=== PATIENT | female | born 1990 | race African-American/Black ===

== ENCOUNTER 2019-02-27 20:48 | Emergency (ER) | payer OTHER ==
--- NOTE | 2019-02-27 21:14 | PDOC ---
Rapid Medical Evaluation Time Seen by Provider: 02/27/19 21:07 Medical Evaluation: 02/27/19 21:08 CC: unable to tolerate PO's xtoday. D/C'd from [facility] prior to arrival. LMP- PE: Diffuse abd tenderness. Orders: labs Patient to proceed to ER for evaluation. Discharge Disposition - Diagnosis Vomiting during - Referrals - Patient Instructions - Post Discharge Activity
[2019-02-27] MEDS ORDERED: SODIUM CHLORIDE 1,000 ML IV STA (21:15)
[2019-02-27] MEDS ORDERED: ONDANSETRON 4 MG/2 ML VIAL IVPUSH ONE (21:15)
[2019-02-27 21:24] VITALS: BP 124/78; PULSE 78; TEMP 98; BMI 28.8
--- NOTE | 2019-02-27 21:41 | PDOC ---
History of Present Illness - General Chief Complaint: Nausea/Vomiting Stated Complaint: Nausea/Vomiting Time Seen by Provider: 02/27/19 21:07 Past History - Past Medical History Allergies/Adverse Reactions: Allergies Allergy/AdvReac Type Severity Reaction Status Date / Time No Known Allergies Allergy Verified 02/27/19 21:16 - Psycho Social/Smoking Cessation Hx Smoking History: Never smoked *Physical Exam - Vital Signs Last Vital Signs Temp Pulse Resp BP Pulse Ox 98 F 78 18 124/78 99 02/27/19 21:16 02/27/19 21:16 02/27/19 21:16 02/27/19 21:16 02/27/19 21:16 Discharge - Discharge Information Clinical Impression/Diagnosis: Vomiting during - Follow up/Referral Referrals: ON STAFF,NOT [Primary Care Provider] - - Patient Discharge Instructions - Post Discharge Activity
[2019-02-27] MEDS ORDERED: ONDANSETRON 4 MG/2 ML VIAL ONE (22:06)
[2019-02-27 22:13] LABS: BASO % 0.3 % (0-2.0); EOS % 0.1 % (0-4.5); HEMATOCRIT 35.6 % (32.4-45.2); HEMOGLOBIN 11.8 GM/dL (10.7-15.3); LYMPH % 17.3 % (8-40); MCH 34.1 pg (25.7-33.7); MCHC 33.3 g/dl (32.0-36.0); MEAN CELL VOLUME 102.7 fl (80-96); MEAN PLT VOLUME 7.4 fl (7.5-11.1); MONO % 4.2 % (3.8-10.2); NEUT % 78.1 % (42.8-82.8); PLATELET COUNT 237 K/MM3 (134-434); RBC 3.46 M/mm3 (3.60-5.2); RDW 14.9 % (11.6-15.6); WHITE BLOOD COUNT 12.2 K/mm3 (4.0-10.0)
[2019-02-27 22:42] LABS: ALBUMIN 3.9 g/dl (3.4-5.0); BILIRUBIN,TOTAL 0.5 mg/dL (0.2-1); BLOOD UREA NITROGEN 9.7 mg/dL (7-18); CALCIUM 9.1 mg/dL (8.5-10.1); CREATININE 0.8 mg/dL (0.55-1.3); POTASSIUM 3.8 mmol/L (3.5-5.1); TOT PROT 7.2 g/dl (6.4-8.2)
--- NOTE | 2019-02-27 22:42 | PDOC ---
Documentation entered by Austin Michaud SCRIBE, acting as scribe for Carolina Horton MD. Carolina Horton MD: This documentation has been prepared by the Jaswant hawkins Xhesika, SCRIBE, under my direction and personally reviewed by me in its entirety. I confirm that the documentation accurately reflects all work, treatment, procedures, and medical decision making performed by me. History of Present Illness - General Chief Complaint: Nausea/Vomiting Stated Complaint: Nausea/Vomiting Time Seen by Provider: 02/27/19 21:07 History Source: Patient Exam Limitations: No Limitations - History of Present Illness Initial Comments: 02/27/19 21:45 The patient is a 28 year old female, , currently , with a significant PMH of IDDM who presents to the emergency department for intractable nausea and vomiting x 1 day. Patient notes she was seen and discharged from [facility] for similar symptoms prior to arrival, received IV fluid and Zofran but did not receive US. Patient denies any vaginal bleeding or discharge. patient s LMP was 12/31/18. The patient denies chest pain, shortness of breath, headache and dizziness. Denies fever, chills, cough, diarrhea and constipation. Denies dysuria, frequency, urgency and hematuria. Allergies: NKDA Past History - Past Medical History Allergies/Adverse Reactions: Allergies Allergy/AdvReac Type Severity Reaction Status Date / Time No Known Allergies Allergy Verified 02/27/19 21:16 - Psycho Social/Smoking Cessation Hx Smoking History: Never smoked Review of Systems - Review of Systems Able to Perform ROS?: Yes Comments:: 02/27/19 21:46 GENERAL/CONSTITUTIONAL: No fever or chills. No weakness. HEAD, EYES, EARS, NOSE AND THROAT: No change in vision. No ear pain or discharge. No sore throat. CARDIOVASCULAR: No chest pain or shortness of breath. RESPIRATORY: No cough, wheezing, or hemoptysis. GASTROINTESTINAL: + nausea, + vomiting. No diarrhea or constipation. GENITOURINARY: No dysuria, frequency, or change in urination. MUSCULOSKELETAL: No joint or muscle swelling or pain. No neck or back pain. SKIN: No rash NEUROLOGIC: No headache, vertigo, loss of consciousness, or change in strength/ sensation. ENDOCRINE: No increased thirst. No abnormal weight change. HEMATOLOGIC/LYMPHATIC: No anemia, easy bleeding, or history of blood clots. ALLERGIC/IMMUNOLOGIC: No hives or skin allergy. *Physical Exam - Vital Signs Last Vital Signs Temp Pulse Resp BP Pulse Ox 98 F 78 18 124/78 99 02/27/19 21:16 02/27/19 21:16 02/27/19 21:16 02/27/19 21:16 02/27/19 21:16 - Physical Exam Comments: 02/27/19 21:46 GENERAL: Awake, alert, and fully oriented, in no acute distress HEAD: No signs of trauma EYES: PERRLA, EOMI, sclera anicteric, conjunctiva clear ENT: Auricles normal inspection, hearing grossly normal, nares patent, oropharynx clear without exudates. Moist mucosa NECK: Normal ROM, supple, no lymphadenopathy, JVD, or masses LUNGS: Breath sounds equal, clear to auscultation bilaterally. No wheezes, and no crackles HEART: Regular rate and rhythm, normal S1 and S2, no murmurs, rubs or gallops ABDOMEN: Soft, nontender, normoactive bowel sounds. No guarding, no rebound. No masses EXTREMITIES: Normal range of motion, no edema. No clubbing or cyanosis. No cords, erythema, or tenderness NEUROLOGICAL: Cranial nerves II through XII grossly intact. Normal speech, normal gait SKIN: Warm, Dry, normal turgor, no rashes or lesions noted. ED Treatment Course - LABORATORY CBC & Chemistry Diagram: 02/27/19 22:00 02/27/19 22:00 - ADDITIONAL ORDERS Additional order review: Laboratory Results 02/27/19 02/27/19 22:18 22:00 Lipase 338 Acetone, Qual Negative L 02/27/19 22:00 RBC 3.46 L MCV 102.7 H MCHC 33.3 RDW 14.9 MPV 7.4 L Neutrophils % 78.1 Lymphocytes % 17.3 Monocytes % 4.2 Eosinophils % 0.1 Basophils % 0.3 - Medications Given in the ED: ED Medications Discontinued Medications Generic Name Dose Route Start Last Admin Trade Name Freq PRN Reason Stop Dose Admin Sodium Chloride 1,000 mls @ 1,000 mls/hr 02/27/19 21:15 02/27/19 22:12 Normal Saline - IV 02/27/19 22:14 1,000 mls/hr ASDIR STA Administration Ondansetron HCl 4 mg 02/27/19 21:15 02/27/19 22:12 Zofran Injection IVPUSH 02/27/19 21:16 4 mg ONCE ONE Administration Medical Decision Making - Medical Decision Making 02/27/19 22:41 this 28 yo female states she has an early and is IDDM and has had 1 day of nausea and vomiting 02/28/19 00:20 BHCG is 68,000 and Transvaginal ultrasound shows a single live intrauterine gestational sac with a pole corresponding to 7 weeks and 4 days gestation. heart rate in the 146 bpm Yolk sac visualized. There is no subchorionic hemorrhage. There is no free fluid or suspicious adnexal masses. There is a simple cyst in the right ovary. Left ovary was not visualized. Impression live single intrauterine 7 weeks 4 days gestation. No sonographic complications. Serum acetone was negative. The glucose is only 192. No evidence of diabetic ketoacidosis. Patient to be discharged home to follow up with her SALESFORCE ADMINISTRATOR 02/28/19 00:37 Discharge - Discharge Information Problems reviewed: Yes Clinical Impression/Diagnosis: Vomiting during Condition: Stable Disposition: HOME - Follow up/Referral Referrals: ON STAFF,NOT [Primary Care Provider] - - Patient Discharge Instructions Patient Printed Discharge Instructions: DI for Hyperemesis Gravidarum, DI for Diabetes Type 1 -- Adult Additional Instructions: you are 7 weeks 4 days and need to follow up with your SALESFORCE ADMINISTRATOR Continue to see your diabetes doctor during your - Post Discharge Activity
[2019-02-28] MEDS ORDERED: ACETAMINOPHEN 325 MG TABLET (FP) PO ONE (00:37)
[2019-02-28] MEDS ORDERED: ACETAMINOPHEN 325 MG TABLET (FP) ONE (00:40)
== END 2019-02-28 00:46 | disposition home or self-care (01) ==
LOC: JER 20:48
PROC: 3E033GC Introduction of Other Therapeutic Substance into Peripheral Vein, Percutaneous Approach (ICD-10-PCS; principal; 2019-02-27)
PROC: 3E0337Z Introduction of Electrolytic and Water Balance Substance into Peripheral Vein, Percutaneous Approach (ICD-10-PCS; 2019-02-27)
DX: O26.891 Other specified pregnancy related conditions, first trimester (principal); Z3A.01 Less than 8 weeks gestation of pregnancy; R11.10 Vomiting, unspecified
CPT/HCPCS: 36415; 76817-TC; 80053; 82009; 83690; 84702; 85025; 96361; 96374; 99283-25; J7030

== ENCOUNTER 2019-04-10 20:23 | Inpatient (IN) | payer OTHER ==
[2019-04-10 20:34] VITALS: BMI 31.4
--- NOTE | 2019-04-10 20:35 | PDOC ---
Rapid Medical Evaluation Time Seen by Provider: 04/10/19 20:29 Medical Evaluation: Allergies Allergy/AdvReac Type Severity Reaction Status Date / Time No Known Allergies Allergy Verified 02/27/19 21:16 04/10/19 20:29 I have performed a brief in-person evaluation of this patient. The patient presents with a chief complaint of: 14 wks , type I diabetic , persistent vomiting since 330pm, approximately 10 episodes of vomiting. + chills, diarrhea. denies abd pain or vaginal bleeding. Pertinent physical exam findings: uncomfortable/weak appearing, dry cough I have ordered the following: labs, urine, flu The patient will proceed to the ED for further evaluation. Discharge Disposition - Diagnosis Vomiting during , Type 1 diabetes - Referrals - Patient Instructions - Post Discharge Activity
--- NOTE | 2019-04-10 22:17 | PDOC ---
History of Present Illness - General Chief Complaint: Nausea/Vomiting Stated Complaint: VOMITTING Time Seen by Provider: 04/10/19 20:29 - History of Present Illness Initial Comments: 04/11/19 03:51 The patient is a 28 y/o female at a self-reported 14 weeks gestation and PMHx significant for Type 1 DM who presents with acute onset of vomiting. Ten episodes of bilious emesis. No abdominal cramping or vaginal bleeding. States her blood sugar was 107 at lunchtime today. Most recent evaluation two weeks previous with a normal TVUS. Patient's next scheduled appointment in two weeks. The patient denies chest pain, shortness of breath, numbness/tingling, sore throat, cough. Past History - Past Medical History Allergies/Adverse Reactions: Allergies Allergy/AdvReac Type Severity Reaction Status Date / Time No Known Allergies Allergy Verified 04/10/19 20:31 Home Medications: Ambulatory Orders Aspirin 81 mg PO DAILY 04/10/19 Folic Acid 1 mg PO DAILY 04/10/19 Insulin (Levemir) [Levemir Vial] 15 units SCJ HS 04/10/19 Insulin (Levemir) [Levemir Vial] 20 unit SQ DAILY 04/10/19 Insulin Lispro [Humalog] 1 unit SQ PRN 04/10/19 Pnv No.121/Iron/Folic Acid [ Multivitamin Tablet] 1 tab PO DAILY COPD: No Diabetes: Yes - Psycho Social/Smoking Cessation Hx Smoking History: Never smoked Review of Systems - Review of Systems Constitutional: Yes: Chills, Fever HEENTM: No: Recent change in vision Respiratory: No: Cough, Shortness of Breath Cardiac (ROS): No: Chest Pain, Lightheadedness, Palpitations, Syncope ABD/GI: Yes: Diarrhea, Vomiting. No: Constipated, Nausea *Physical Exam - Vital Signs Last Vital Signs Temp Pulse Resp BP Pulse Ox 98.0 F 94 H 18 129/71 100 04/10/19 20:31 04/10/19 20:31 04/10/19 20:31 04/10/19 20:31 04/10/19 20:31 - Physical Exam General Appearance: Yes: Nourished, Appropriately Dressed HEENT: positive: Normal Voice, Hearing Grossly Normal, Excessive drooling Neck: positive: Supple Respiratory/Chest: positive: Lungs Clear, Normal Breath Sounds Cardiovascular: positive: S1, S2 Gastrointestinal/Abdominal: positive: Normal Bowel Sounds, Soft Musculoskeletal: negative: CVA Tenderness (R), CVA Tenderness (L) Extremity: positive: Normal Capillary Refill, Normal Inspection Integumentary: positive: Normal Color, Dry, Warm Neurologic: positive: Fully Oriented, Alert ED Treatment Course - LABORATORY CBC & Chemistry Diagram: 04/10/19 22:10 04/10/19 22:10 Medical Decision Making - Medical Decision Making 04/11/19 03:40 04/10/19 23:46 28 y/o female at a self-reported 14 weeks gestation with a PMH of Type 1 DM here today with acute onset of vomiting. VBG, Urine Ketones r/o DKA Beta Hydroxbutyrate @ 12, patient requires admission for evaluation of dehydration. Patient admitted to inpatient medicine service Discharge - Discharge Information Problems reviewed: Yes Clinical Impression/Diagnosis: Vomiting during , Type 1 diabetes Condition: Fair - Follow up/Referral - Patient Discharge Instructions - Post Discharge Activity
[2019-04-10] MEDS ORDERED: SODIUM CHLORIDE 0.9% 500 ML INFUS.BAG IV ONE (22:19)
[2019-04-10] MEDS ORDERED: METOCLOPRAMIDE HCL INJECTION 10 MG/2 ML VIAL IVPUSH ONE (22:22)
[2019-04-10] MEDS ORDERED: LACTATED RINGERS SOLUTION 1,000 ML/1,000 ML INFUS.BAG IV STA (22:23)
[2019-04-10] MEDS ORDERED: METOCLOPRAMIDE HCL INJECTION 10 MG/2 ML VIAL ONE (22:26)
[2019-04-10 22:35] LABS: BASO % 0.3 % (0-2.0); HEMATOCRIT 34.3 % (32.4-45.2); HEMOGLOBIN 11.7 GM/dL (10.7-15.3); LYMPH % 16.1 % (8-40); MCH 34.9 pg (25.7-33.7); MCHC 34.1 g/dl (32.0-36.0); MEAN CELL VOLUME 102.1 fl (80-96); MEAN PLT VOLUME 8.3 fl (7.5-11.1); MONO % 3.2 % (3.8-10.2); NEUT % 80.4 % (42.8-82.8); PLATELET COUNT 234 K/MM3 (134-434); RBC 3.35 M/mm3 (3.60-5.2); RDW 13.5 % (11.6-15.6); WHITE BLOOD COUNT 11.8 K/mm3 (4.0-10.0)
[2019-04-10 22:36] LABS: VENOUS PC02 32.9 mmHg (38-52); VENOUS PH 7.43 (7.31-7.41)
[2019-04-10 23:15] LABS: ALBUMIN 3.4 g/dl (3.4-5.0); BILIRUBIN,TOTAL 0.3 mg/dL (0.2-1); BLOOD UREA NITROGEN 11.6 mg/dL (7-18); CALCIUM 9.9 mg/dL (8.5-10.1); CREATININE 0.7 mg/dL (0.55-1.3); POTASSIUM 4.4 mmol/L (3.5-5.1); TOT PROT 7.1 g/dl (6.4-8.2)
--- NOTE | 2019-04-10 23:49 | PDOC ---
Attending Attestation - Resident Resident Name: Lashawn Jay - ED Attending Attestation I have performed the following: I have examined & evaluated the patient, The case was reviewed & discussed with the resident, I agree w/resident's findings & plan - HPI HPI: 04/10/19 23:46 agree with resident hpi - Physicial Exam PE: 04/10/19 23:47 agree with resident exam - Medical Decision Making 04/10/19 23:47 28-year-old gravid female with vomiting, history of type I diabetes Patient's beta hydroxybutyrate levels are markedly elevated pH and bicarbonate levels are within normal limits Plan for admission for IV hydration to medical service with OB consultation as needed
--- NOTE | 2019-04-11 00:08 | PN ---
Teaching Attending Note Name of Resident: Kira Alcantar ATTENDING PHYSICIAN STATEMENT I saw and evaluated the patient. I reviewed the resident's note and discussed the case with the resident. I agree with the resident's findings and plan as documented. SUBJECTIVE: Patient is a 28 year old woman with PMH of IDDM who is 14 weeks presenting with persistent vomiting and nausea for 1 day. Patient says she had her regular breakfast and lunch then later in the afternoon she had 10 episodes of NB but bilious vomiting with associated nausea and chills. Patient was prescribed vitamin B6 for similar symptoms on a recent ER visit but was unable to keep anything down. Denies abdominal pain, vaginal bleeding, recent illness, fever, chills, dysuria or frequency. Patient did mention one episode of loose stool but following BM were formed. Uncomplicated emergency C section for last . She has an appointment for high risk INTEGRATION DIRECTOR at [facility] later today (04/11/19). OBJECTIVE: Alert Vital Signs Period Temp Pulse Resp BP Sys/Poe Pulse Ox Last 24 Hr 98.0 F 94-106 17-20 120-129/68-71 99-100 HEENT: No Jaundice, eye redness or discharge, PERRLA, EOMI. Normocephalic, atraumatic. External ears are normal and hearing is grossly intact. No nasal discharge. Neck: Supple, nontender. No palpable adenopathy or thyromegaly. No JVD Chest: Good effort. Clear to auscultation and percussion. Heart: Regular. No S3, rub or murmur Abdomen: Not distended, soft, nontender and no HSM. No rebound or guarding. Normal bowel sounds. Ext: Peripheral pulses intact. No leg edema. Skin: Warm and dry. No petechiae, rash or ecchymosis. Neuro: Alert. Oriented x3. CN 2-12 grossly intact. Sensation grossly intact in all four extremities and DTR are symmetric. Psych: Appropriate mood and affect. Good insight. Current Medications Generic Name Dose Route Start Last Admin Trade Name Freq PRN Reason Stop Dose Admin Sodium Chloride 1,000 mls @ 150 mls/hr 04/11/19 02:00 04/11/19 02:01 Normal Saline - IV 04/12/19 08:39 150 mls/hr ASDIR KERWIN Administration Metoclopramide HCl 10 mg 04/11/19 02:00 04/11/19 02:17 Reglan Injection - IVPUSH 10 mg Q6H PRN Administration NAUSEA AND/OR VOMITING Home Medications Medication Instructions Recorded Aspirin 81 mg PO DAILY 04/10/19 Folic Acid 1 mg PO DAILY 04/10/19 Insulin (Levemir) [Levemir Vial] 15 units SCJ HS 04/10/19 Insulin (Levemir) [Levemir Vial] 20 unit SQ DAILY 04/10/19 Insulin Lispro [Humalog] 1 unit SQ PRN 04/10/19 Pnv No.121/Iron/Folic Acid 1 tab PO DAILY 04/10/19 [ Multivitamin Tablet] Abnormal Lab Results 04/10/19 04/10/19 04/10/19 22:10 22:10 22:10 WBC 11.8 H RBC 3.35 L MCV 102.1 H MCH 34.9 H Absolute Neuts (auto) 9.5 H Monocytes % 3.2 L VBG pH 7.43 H POC VBG pCO2 32.9 L POC VBG pO2 132 H VBG HCO3 21.4 L VBG O2 Sat (Elie) 98.9 H Sodium 135 L Random Glucose 173 H Beta-Hydroxybutyrate 12.9 H Urine Protein Urine Glucose (UA) Urine Ketones 04/11/19 01:47 WBC RBC MCV MCH Absolute Neuts (auto) Monocytes % VBG pH POC VBG pCO2 POC VBG pO2 VBG HCO3 VBG O2 Sat (Elie) Sodium Random Glucose Beta-Hydroxybutyrate Urine Protein 1+ H Urine Glucose (UA) 2+ H Urine Ketones 4+ H ASSESSMENT AND PLAN: 1. Hyperemesis gravidarum - Responding to IV fluids and Reglan. Will get abdominal sonogram to rule any GI organ pathology. EKG shows NSR with T wave inversion in III and prolonged QTc. Will monitor electrolytes and strive to discharge her early today - if stable - so she can keep her appointment at [facility]. 2. Uncontrolled DM with mild ketosis For now, we will hold the home diabetes drugs and implement sliding scale insulin regimen. Provide comprehensive diabetes care with patient teaching and counseling about the importance of adherence to prescribed diabetes regimen, euglycemia, eye care and foot care. 3. DVT prophylaxis - Heparin 5000u sq tid. 4. Advance directives - Full code
[2019-04-11] MEDS ORDERED: SODIUM CHLORIDE 1,000 ML IV SCH (02:00)
[2019-04-11] MEDS: METOCLOPRAMIDE HCL INJECTION 10 MG/2 ML VIAL IVPUSH PRN ×3 (02:17→12:00)
[2019-04-11] MEDS ORDERED: METOCLOPRAMIDE HCL INJECTION 10 MG/2 ML VIAL ONE (02:18)
--- NOTE | 2019-04-11 02:46 | HP ---
CHIEF COMPLAINT: persistent vomiting PCP: non [facility] HISTORY OF PRESENT ILLNESS: 28 y/o F currently 14 weeks with PMH of Type 1 diabetes complaining of vomiting and nausea for 1 day. According to the pt, she had her regular breakfast and lunch then later in the afternoon she had 10 episodes of NB but bilious vomiting with associated nausea and chills. Pt was prescribed vitamin B6 for similar symptoms and ED visit; however patient was unable to keep anything down.She denied any abdominal pain or bleeding, recent illness, fever or chills, or change in urination. Patient did mention one episode of loose stool but following BM were formed. Uncomplicated emergency C section for last according to Patient. Emergency due to "fast HR" however no post complication for mother or baby. LMP 01/15. Pt has an appointment for high risk customer services supervisor on 04/11/19. ER course was notable for: (1) CBC with leukocytosis, CMP with elevated B-hydroxybutyrate 12.9 (2) rapid flu negative. EKG with prolongued QTC 462 NSR with T wave inversion in III (3) NS and reglan Recent Travel: denies PAST MEDICAL HISTORY: as above PAST SURGICAL HISTORY: umbilical hernia repair Social History: Smoking:denies Alcohol: denies Drugs: denies Allergies No Known Allergies Allergy (Verified 04/10/19 20:31) HOME MEDICATIONS: Home Medications Medication Instructions Recorded Aspirin 81 mg PO DAILY 04/10/19 Folic Acid 1 mg PO DAILY 04/10/19 Insulin (Levemir) [Levemir Vial] 15 units SCJ HS 04/10/19 Insulin (Levemir) [Levemir Vial] 20 unit SQ DAILY 04/10/19 Insulin Lispro [Humalog] 1 unit SQ PRN 04/10/19 Pnv No.121/Iron/Folic Acid 1 tab PO DAILY 04/10/19 [ Multivitamin Tablet] REVIEW OF SYSTEMS CONSTITUTIONAL: chills Absent: fever, diaphoresis, generalized weakness, malaise, loss of appetite, weight change HEENT: Absent: rhinorrhea, nasal congestion, throat pain, throat swelling, difficulty swallowing, mouth swelling, ear pain, eye pain, visual changes CARDIOVASCULAR: Absent: chest pain, syncope, palpitations, irregular heart rate, lightheadedness , peripheral edema RESPIRATORY: Absent: cough, shortness of breath, dyspnea with exertion, orthopnea, wheezing, stridor, hemoptysis GASTROINTESTINAL:nausea, vomiting Absent: abdominal pain, abdominal distension, diarrhea, constipation, melena, hematochezia GENITOURINARY: Absent: dysuria, frequency, urgency, hesitancy, hematuria, flank pain, genital pain MUSCULOSKELETAL: Absent: myalgia, arthralgia, joint swelling, back pain, neck pain SKIN: Absent: rash, itching, pallor HEMATOLOGIC/IMMUNOLOGIC: Absent: easy bleeding, easy bruising, lymphadenopathy, frequent infections ENDOCRINE: Absent: unexplained weight gain, unexplained weight loss, heat intolerance, cold intolerance NEUROLOGIC: Absent: headache, focal weakness or paresthesias, dizziness, unsteady gait, seizure, mental status changes, bladder or bowel incontinence PSYCHIATRIC: Absent: anxiety, depression, suicidal or homicidal ideation, hallucinations. PHYSICAL EXAMINATION Vital Signs - 24 hr 04/10/19 04/10/19 04/11/19 20:31 23:29 02:03 Temperature 98.0 F Pulse Rate 94 H Pulse Rate [ 106 H 100 H Apical] Respiratory 18 20 17 Rate Blood Pressure 129/71 Blood Pressure 120/68 123/71 [Right Arm] O2 Sat by Pulse 100 100 99 Oximetry (%) GENERAL: Awake, alert, and fully oriented, in mild distress. HEAD: Normal with no signs of trauma. EYES: Pupils equal, round and reactive to light, extraocular movements intact, sclera anicteric, conjunctiva clear. No lid lag. EARS, NOSE, THROAT: oropharynx clear without exudates. Moist mucous membranes. NECK: Normal range of motion, supple without lymphadenopathy, JVD, or masses. LUNGS: Breath sounds equal, clear to auscultation bilaterally. No wheezes, and no crackles. No accessory muscle use. HEART: Regular rate and rhythm, normal S1 and S2 without murmur, rub or gallop. ABDOMEN: Soft, nontender, distended from uterus, normoactive bowel sounds, no guarding, no rebound, no masses. No hepatomegaly or splenomegaly. MUSCULOSKELETAL: Normal range of motion at all joints. No bony deformities or tenderness. No CVA tenderness. UPPER EXTREMITIES: 2+ pulses, warm, well-perfused. No cyanosis. No clubbing. No peripheral edema. LOWER EXTREMITIES: 2+ pulses, warm, well-perfused. No calf tenderness. No peripheral edema. PSYCHIATRIC: Cooperative. Good eye contact. Appropriate mood and affect. SKIN: Warm, dry, normal turgor, no rashes or lesions noted, normal capillary refill. Laboratory Results - last 24 hr 04/10/19 04/10/19 04/10/19 20:30 22:10 22:10 WBC 11.8 H RBC 3.35 L Hgb 11.7 Hct 34.3 MCV 102.1 H MCH 34.9 H MCHC 34.1 RDW 13.5 Plt Count 234 MPV 8.3 D Absolute Neuts (auto) 9.5 H Neutrophils % 80.4 Lymphocytes % 16.1 Monocytes % 3.2 L Eosinophils % 0.0 D Basophils % 0.3 Nucleated RBC % 0 VBG pH POC VBG pCO2 POC VBG pO2 VBG HCO3 VBG O2 Sat (Elie) VBG Base Excess Sodium 135 L Potassium 4.4 Chloride 103 Carbon Dioxide 23 Anion Gap 9 BUN 11.6 Creatinine 0.7 Est GFR (CKD-EPI)AfAm 135.70 Est GFR (CKD-EPI)NonAf 117.08 Random Glucose 173 H Lactic Acid Calcium 9.9 Total Bilirubin 0.3 AST 27 ALT 23 Alkaline Phosphatase 58 Total Protein 7.1 Albumin 3.4 Beta-Hydroxybutyrate 12.9 H Urine HCG, Qual Influenza A (Rapid) Negative Influenza B (Rapid) Negative 04/10/19 04/10/19 04/11/19 22:10 22:10 01:47 WBC RBC Hgb Hct MCV MCH MCHC RDW Plt Count MPV Absolute Neuts (auto) Neutrophils % Lymphocytes % Monocytes % Eosinophils % Basophils % Nucleated RBC % VBG pH 7.43 H POC VBG pCO2 32.9 L POC VBG pO2 132 H VBG HCO3 21.4 L VBG O2 Sat (Elie) 98.9 H VBG Base Excess -1.9 Sodium Potassium Chloride Carbon Dioxide Anion Gap BUN Creatinine Est GFR (CKD-EPI)AfAm Est GFR (CKD-EPI)NonAf Random Glucose Lactic Acid 1.4 Calcium Total Bilirubin AST ALT Alkaline Phosphatase Total Protein Albumin Beta-Hydroxybutyrate Urine HCG, Qual Positive Influenza A (Rapid) Influenza B (Rapid) ASSESSMENT/PLAN: 28 y/o F currently 14 weeks with PMH of Type 1 diabetes complaining of vomiting and nausea for 1 day. admitted for IV antiemetics and hydration. Persistent Nausea and Vomiting most likely due to and elevated BhCG cont reglan Q6H. prolongued QTC Hydration with NS @ 150cc/hr Utox and TSH ordered Abdominal US to r/o alternative causes. LFTS on admission normal F/U repeat morning labs If stable, can be discharge later today for high lighter appointment Leukocytosis WBC 11.8 most likely related UA sent DVT hep subQ Visit type - Emergency Visit Emergency Visit: Yes ED Registration Date: 04/11/19 Care time: The patient presented to the Emergency Department on the above date and was hospitalized for further evaluation of their emergent condition. - New Patient This patient is new to me today: Yes Date on this admission: 04/11/19 - Critical Care Critical Care patient: No ATTENDING PHYSICIAN STATEMENT I saw and evaluated the patient. I reviewed the resident's note and discussed the case with the resident. I agree with the resident's findings and plan as documented. SUBJECTIVE: OBJECTIVE: ASSESSMENT AND PLAN:
[2019-04-11 03:17] LABS: URINE APPEARANCE Clear; URINE BILIRUBIN Negative (NEGATIVE); URINE COLOR Yellow; URINE GLUCOSE (UA) 2+ (NEGATIVE); URINE KETONE 4+ (NEGATIVE); URINE LEUK ESTERASE Negative (NEGATIVE); URINE NITRITE Negative (NEGATIVE); URINE PROTEIN 1+ (NEGATIVE); URINE UROBILINOGEN 0.2 mg/dL (0.2-1.0)
[2019-04-11] MEDS ORDERED: HEPARIN NA (PORCINE) 5,000 UNITS/ML 1ML VIAL SQ SCH (06:00)
[2019-04-11 06:07] LABS: URINE RBC 5 /hpf (0-4); URINE WBC 10 /hpf (0-5)
[2019-04-11 06:08] LABS: EPI CELLS FEW /HPF (0-5/HPF); URINE BACTERIA 6 /hpf (NEGATIVE)
[2019-04-11] MEDS: INSULIN SLIDING SCALE (NOVOLOG) 1 VIAL SQ SCH ×3 (06:36→16:15)
[2019-04-11] MEDS ORDERED: ACETAMINOPHEN 1000 MG/100 ML VIAL (NON FORMULARY) IVPB ONE (07:53)
[2019-04-11 08:45] LABS: BASO % 0.3 % (0-2.0); HEMATOCRIT 33.4 % (32.4-45.2); HEMOGLOBIN 11.7 GM/dL (10.7-15.3); LYMPH % 12.3 % (8-40); MCH 35.1 pg (25.7-33.7); MEAN CELL VOLUME 100.4 fl (80-96); MEAN PLT VOLUME 7.8 fl (7.5-11.1); MONO % 2.8 % (3.8-10.2); NEUT % 84.6 % (42.8-82.8); PLATELET COUNT 244 K/MM3 (134-434); RBC 3.33 M/mm3 (3.60-5.2); RDW 13.7 % (11.6-15.6); WHITE BLOOD COUNT 12.2 K/mm3 (4.0-10.0)
[2019-04-11 09:15] LABS: ALBUMIN 3.3 g/dl (3.4-5.0); BILIRUBIN,TOTAL 0.5 mg/dL (0.2-1); BLOOD UREA NITROGEN 8.7 mg/dL (7-18); CALCIUM 9.3 mg/dL (8.5-10.1); CREATININE 0.8 mg/dL (0.55-1.3); MAGNESIUM 1.8 mg/dL (1.8-2.4); PHOSPHOROUS 3.3 mg/dL (2.5-4.9); POTASSIUM 3.7 mmol/L (3.5-5.1)
[2019-04-11 10:33] LABS: COCAINE, UR NEGATIVE ng/ml (CUTOFF=300); METHADONE, UR NEGATIVE ng/ml (CUTOFF=300); OPIATES, URI NEGATIVE ng/ml (CUTOFF=300); PHENCYCLIDINE,URINE NEGATIVE ng/ml (CUTOFF=25); URINE AMPHETAMINES NEGATIVE ng/ml (CUTOFF=500); URINE BARBITURATES NEGATIVE ng/ml (CUTOFF=200); URINE BENZODIAZEPINES NEGATIVE ng/ml (CUTOFF=200)
[2019-04-11] MEDS ORDERED: INSULIN (LEVEMIR) 100 UNITS/ML UNITS SQ ONE (10:57)
--- NOTE | 2019-04-11 11:04 | EKG ---
Test Reason : Blood Pressure : / mmHG Vent. Rate : 096 BPM Atrial Rate : 096 BPM P-R Int : 188 ms QRS Dur : 078 ms QT Int : 368 ms P-R-T Axes : 057 048 034 degrees QTc Int : 464 ms NORMAL SINUS RHYTHM NONSPECIFIC T WAVE ABNORMALITY PROLONGED QT ABNORMAL ECG NO PREVIOUS ECGS AVAILABLE Confirmed by NAZANIN WITT MD ([id number]) on 04/11/2019 11:03:46 AM Referred By: Confirmed By:NAZANIN WITT MD
[2019-04-11] MEDS ORDERED: AMOXICILLIN 500 MG CAPSULE (FP) PO SCH (13:45)
[2019-04-11 14:24] VITALS: BP 133/66; PULSE 107; TEMP 98.7
[2019-04-11 14:24] LABS: BLOOD UREA NITROGEN 9.9 mg/dL (7-18); CALCIUM 9.7 mg/dL (8.5-10.1); CREATININE 0.7 mg/dL (0.55-1.3); POTASSIUM 4.1 mmol/L (3.5-5.1)
--- NOTE | 2019-04-11 15:10 | DS ---
Physical Exam: SUBJECTIVE: Pt with nausea today, no episodes of emesis overnight. Pt denies any fever/chills, SOB, cough, CP, palpitations, abdominal pain, dysuria, polyuria, diarrhea/constipation. OBJECTIVE: Vital Signs Period Temp Pulse Resp BP Sys/Poe Pulse Ox Last 24 Hr 98.0 F-98.7 F 93-107 17-20 119-142/66-91 99-100 PHYSICAL EXAM GENERAL: The patient is awake, alert, and fully oriented, in no acute distress. LUNGS: Breath sounds equal, clear to auscultation bilaterally, no wheezes, no crackles, no accessory muscle use. HEART: Regular rate and rhythm, S1, S2 without murmur ABDOMEN: Soft, nontender, nondistended, gravid uterus apprecaited, normoactive bowel sounds, no guarding, no rebound, no hepatosplenomegaly EXTREMITIES: 2+ pulses, warm, well-perfused, no edema. PSYCH: Normal mood, normal affect. SKIN: Warm, dry, normal turgor, no rashes or lesions noted. LABS Laboratory Results - last 24 hr 04/10/19 04/10/19 04/10/19 20:30 22:10 22:10 WBC 11.8 H RBC 3.35 L Hgb 11.7 Hct 34.3 MCV 102.1 H MCH 34.9 H MCHC 34.1 RDW 13.5 Plt Count 234 MPV 8.3 D Absolute Neuts (auto) 9.5 H Neutrophils % 80.4 Lymphocytes % 16.1 Monocytes % 3.2 L Eosinophils % 0.0 D Basophils % 0.3 Nucleated RBC % 0 VBG pH POC VBG pCO2 POC VBG pO2 VBG HCO3 VBG O2 Sat (Elie) VBG Base Excess Sodium 135 L Potassium 4.4 Chloride 103 Carbon Dioxide 23 Anion Gap 9 BUN 11.6 Creatinine 0.7 Est GFR (CKD-EPI)AfAm 135.70 Est GFR (CKD-EPI)NonAf 117.08 POC Glucometer Random Glucose 173 H Lactic Acid Calcium 9.9 Phosphorus Magnesium Total Bilirubin 0.3 AST 27 ALT 23 Alkaline Phosphatase 58 Total Protein 7.1 Albumin 3.4 Beta-Hydroxybutyrate 12.9 H TSH Urine Color Urine Appearance Urine pH Ur Specific [place] Urine Protein Urine Glucose (UA) Urine Ketones Urine Blood Urine Nitrite Urine Bilirubin Urine Urobilinogen Ur Leukocyte Esterase Urine WBC (Auto) Urine RBC (Auto) U Pathogenic Cast Auto U Epithel Cells (Auto) Urine Bacteria (Auto) Urine HCG, Qual Opiates Screen Methadone Screen Barbiturate Screen Phencyclidine Screen Ur Amphetamines Screen MDMA (Ecstasy) Screen Benzodiazepines Screen Cocaine Screen U Marijuana (THC) Screen Influenza A (Rapid) Negative Influenza B (Rapid) Negative 04/10/19 04/10/19 04/11/19 22:10 22:10 01:47 WBC RBC Hgb Hct MCV MCH MCHC RDW Plt Count MPV Absolute Neuts (auto) Neutrophils % Lymphocytes % Monocytes % Eosinophils % Basophils % Nucleated RBC % VBG pH 7.43 H POC VBG pCO2 32.9 L POC VBG pO2 132 H VBG HCO3 21.4 L VBG O2 Sat (Elie) 98.9 H VBG Base Excess -1.9 Sodium Potassium Chloride Carbon Dioxide Anion Gap BUN Creatinine Est GFR (CKD-EPI)AfAm Est GFR (CKD-EPI)NonAf POC Glucometer Random Glucose Lactic Acid 1.4 Calcium Phosphorus Magnesium Total Bilirubin AST ALT Alkaline Phosphatase Total Protein Albumin Beta-Hydroxybutyrate TSH Urine Color Urine Appearance Urine pH Ur Specific [place] Urine Protein Urine Glucose (UA) Urine Ketones Urine Blood Urine Nitrite Urine Bilirubin Urine Urobilinogen Ur Leukocyte Esterase Urine WBC (Auto) Urine RBC (Auto) U Pathogenic Cast Auto U Epithel Cells (Auto) Urine Bacteria (Auto) Urine HCG, Qual Positive Opiates Screen Methadone Screen Barbiturate Screen Phencyclidine Screen Ur Amphetamines Screen MDMA (Ecstasy) Screen Benzodiazepines Screen Cocaine Screen U Marijuana (THC) Screen Influenza A (Rapid) Influenza B (Rapid) 04/11/19 04/11/19 04/11/19 01:47 06:00 06:30 WBC RBC Hgb Hct MCV MCH MCHC RDW Plt Count MPV Absolute Neuts (auto) Neutrophils % Lymphocytes % Monocytes % Eosinophils % Basophils % Nucleated RBC % VBG pH POC VBG pCO2 POC VBG pO2 VBG HCO3 VBG O2 Sat (Elie) VBG Base Excess Sodium 134 L Potassium 3.7 Chloride 102 Carbon Dioxide 25 Anion Gap 7 L BUN 8.7 Creatinine 0.8 Est GFR (CKD-EPI)AfAm 115.47 Est GFR (CKD-EPI)NonAf 99.63 POC Glucometer 276 Random Glucose 190 H Lactic Acid Calcium 9.3 Phosphorus 3.3 Magnesium 1.8 Total Bilirubin 0.5 AST 17 ALT 22 Alkaline Phosphatase 58 Total Protein 7.0 Albumin 3.3 L Beta-Hydroxybutyrate TSH 1.41 Urine Color Yellow Urine Appearance Clear Urine pH 7.0 Ur Specific [place] 1.025 Urine Protein 1+ H Urine Glucose (UA) 2+ H Urine Ketones 4+ H Urine Blood Trace-intact Urine Nitrite Negative Urine Bilirubin Negative Urine Urobilinogen 0.2 Ur Leukocyte Esterase Negative Urine WBC (Auto) 10 Urine RBC (Auto) 5 U Pathogenic Cast Auto N U Epithel Cells (Auto) Few Urine Bacteria (Auto) 6 Urine HCG, Qual Opiates Screen Methadone Screen Barbiturate Screen Phencyclidine Screen Ur Amphetamines Screen MDMA (Ecstasy) Screen Benzodiazepines Screen Cocaine Screen U Marijuana (THC) Screen Influenza A (Rapid) Influenza B (Rapid) 04/11/19 04/11/19 04/11/19 07:35 08:20 11:04 WBC 12.2 H RBC 3.33 L Hgb 11.7 Hct 33.4 MCV 100.4 H MCH 35.1 H MCHC 35.0 RDW 13.7 Plt Count 244 MPV 7.8 Absolute Neuts (auto) 10.3 H Neutrophils % 84.6 H Lymphocytes % 12.3 D Monocytes % 2.8 L Eosinophils % 0.0 Basophils % 0.3 Nucleated RBC % 0 VBG pH POC VBG pCO2 POC VBG pO2 VBG HCO3 VBG O2 Sat (Elie) VBG Base Excess Sodium Potassium Chloride Carbon Dioxide Anion Gap BUN Creatinine Est GFR (CKD-EPI)AfAm Est GFR (CKD-EPI)NonAf POC Glucometer 178 Random Glucose Lactic Acid Calcium Phosphorus Magnesium Total Bilirubin AST ALT Alkaline Phosphatase Total Protein Albumin Beta-Hydroxybutyrate TSH Urine Color Urine Appearance Urine pH Ur Specific [place] Urine Protein Urine Glucose (UA) Urine Ketones Urine Blood Urine Nitrite Urine Bilirubin Urine Urobilinogen Ur Leukocyte Esterase Urine WBC (Auto) Urine RBC (Auto) U Pathogenic Cast Auto U Epithel Cells (Auto) Urine Bacteria (Auto) Urine HCG, Qual Opiates Screen Negative Methadone Screen Negative Barbiturate Screen Negative Phencyclidine Screen Negative Ur Amphetamines Screen Negative MDMA (Ecstasy) Screen Negative Benzodiazepines Screen Negative Cocaine Screen Negative U Marijuana (THC) Screen Positive A* Influenza A (Rapid) Influenza B (Rapid) 04/11/19 13:43 WBC RBC Hgb Hct MCV MCH MCHC RDW Plt Count MPV Absolute Neuts (auto) Neutrophils % Lymphocytes % Monocytes % Eosinophils % Basophils % Nucleated RBC % VBG pH POC VBG pCO2 POC VBG pO2 VBG HCO3 VBG O2 Sat (Elie) VBG Base Excess Sodium 135 L Potassium 4.1 Chloride 103 Carbon Dioxide 25 Anion Gap 8 BUN 9.9 Creatinine 0.7 Est GFR (CKD-EPI)AfAm 135.70 Est GFR (CKD-EPI)NonAf 117.08 POC Glucometer Random Glucose 183 H Lactic Acid Calcium 9.7 Phosphorus Magnesium Total Bilirubin AST ALT Alkaline Phosphatase Total Protein Albumin Beta-Hydroxybutyrate TSH Urine Color Urine Appearance Urine pH Ur Specific [place] Urine Protein Urine Glucose (UA) Urine Ketones Urine Blood Urine Nitrite Urine Bilirubin Urine Urobilinogen Ur Leukocyte Esterase Urine WBC (Auto) Urine RBC (Auto) U Pathogenic Cast Auto U Epithel Cells (Auto) Urine Bacteria (Auto) Urine HCG, Qual Opiates Screen Methadone Screen Barbiturate Screen Phencyclidine Screen Ur Amphetamines Screen MDMA (Ecstasy) Screen Benzodiazepines Screen Cocaine Screen U Marijuana (THC) Screen Influenza A (Rapid) Influenza B (Rapid) IMAGING: IMPRESSION: Slightly coarse echotexture of the liver. Please correlate with liver enzymes. Almost borderline elongated/enlarged gallbladder measuring 9.2 cm in sagittal length without intraluminal stones or sonographic evidence of acute cholecystitis. HOSPITAL COURSE: Date of Admission:04/11/19 Date of Discharge: 04/11/19 Pt admitted overnight due to multiple episodes of bilious vomiting and nausea. Overnight pt hydrated with IVF and given Reglan for symptomatic relief. Pt's workup revealed normal LFTs and normal electrolytes seen. Pt underwent RUQ U/S with results as above (normal). Pt was also noted to have starvation based ketosis, without any evidence of DKA at this juncture. Pt in AM was able to tolerate fluids with Reglan use and was noted to have asymptomatic bacteruria. Pt was given Amoxicillin 500mg BID PO and was instructed to take for another 5 days. Pt's electrolyte remained normal and she was noted to have Marijuana positive Utox. Pt is being discharged with instructions to continue Amoxicilllin and Reglan PO PRN and to follow-up with her [employer] within 3-5 days. Minutes to complete discharge: 30 <Ethan Bonilla - Last Filed: 04/11/19 22:05> Physical Exam: SUBJECTIVE: Patient seen and examined Seen and examined; please see resident note for further discussion. Agree with findings as documented above aside from as I have supplemented below. Independently verified all PE findings and singh historical information. Reviewed all imaging, labs, and vitals. Discussed at length with subspecialty consults and resident team. No further complaints; no other events noted overnight. 10 sys ROS less acurate given medical comorbidities limiting historical accuracy O: VS, labs, imaging reviewed NAD, AAO, resting in bed NC AT EOMI PERRLA Lungs without focal findings, w/ sym exp NT ND +BS CN2-12 wnl, no fnd Reached maximal medical benefit of inpatiernt hospitalization. Needs OP followup with OBGYN Agree with hospital course and DC plan per resident documentation. <Geoffrey Hinkle - Last Filed: 04/30/19 02:05> Discharge Summary Problems reviewed: Yes Reason For Visit: VOMITING DURING , DEHYDRATION Current Active Problems Type 1 diabetes (Acute) Vomiting during (Acute) - Home Medications Comprehensive Discharge Medication List: Ambulatory Orders Folic Acid 1 mg PO DAILY 04/10/19 Insulin (Levemir) [Levemir Vial] 20 unit SQ DAILY 04/10/19 Insulin Lispro [Humalog] 1 unit SQ PRN 04/10/19 Pnv No.121/Iron/Folic Acid [ Multivitamin Tablet] 1 tab PO DAILY Amoxicillin - [Amoxicillin 500mg Capsule -] 500 mg PO BID #9 capsule 04/11/19 Famotidine [Acid Controller] 20 mg PO BID #60 tablet 04/11/19 Metoclopramide HCl [Reglan] 10 mg PO Q6H PRN #20 tablet 04/11/19 <Ethan Bonilla - Last Filed: 04/11/19 22:05> - Home Medications Comprehensive Discharge Medication List: Ambulatory Orders Pnv95/Iron Fum/Folic Acid [ Caplet] 1 each PO DAILY 04/21/16 Folic Acid 0.8 mg PO DAILY 10/18/16 Insulin Lispro [Humalog] 4 unit SQ AC 10/18/16 Folic Acid 1 mg PO DAILY 04/10/19 Insulin (Levemir) [Levemir Vial] 20 unit SQ DAILY 04/10/19 Insulin Lispro [Humalog] 1 unit SQ PRN 04/10/19 Pnv No.121/Iron/Folic Acid [ Multivitamin Tablet] 1 tab PO DAILY Amoxicillin - [Amoxicillin 500mg Capsule -] 500 mg PO BID #9 capsule 04/11/19 Famotidine [Acid Controller] 20 mg PO BID #60 tablet 04/11/19 Metoclopramide HCl [Reglan] 10 mg PO Q6H PRN #20 tablet 04/11/19 <Geoffrey Hinkle - Last Filed: 04/30/19 02:05> Condition: Stable - Instructions Diet, Activity, Other Instructions: You were seen because of your vomiting. We did an ultrasound of your gallbladder and saw that it was long, but did NOT have any stones to explain the vomiting. Your electrolytes remained normal and the Reglan helped your nausea. Please keep hydrated and use half Gatorade and half water to keep your electrolytes normal. MEDICATION CHANGES: Please take Amoxicillin 500mg TWICE daily for 5 days due to bacteria found in your urine FOLLOW-UP: Please follow-up with your OBGYN, Dr. Laura, within 1 week Please follow-up with your primary care doctor in 3-5 days. If you do not have one, see Dr. Carreon. Referrals: Radha Laura [Other] Royce Carreon MD [Staff Physician] - Disposition: HOME This patient is new to me today: Yes Date on this admission: 04/11/19 Emergency Visit: Yes ED Registration Date: 04/11/19 Care time: The patient presented to the Emergency Department on the above date and was hospitalized for further evaluation of their emergent condition. Critical Care patient: No - Discharge Referral Referred to [facility] No <Ethan Bonilla - Last Filed: 04/11/19 22:05> ATTENDING PHYSICIAN STATEMENT I saw and evaluated the patient. I reviewed the resident's note and discussed the case with the resident. I agree with the resident's findings and plan as documented. SUBJECTIVE: OBJECTIVE: ASSESSMENT AND PLAN: <Ethan Bonilla - Last Filed: 04/11/19 22:05> ATTENDING PHYSICIAN STATEMENT I saw and evaluated the patient. I reviewed the resident's note and discussed the case with the resident. I agree with the resident's findings and plan as documented. SUBJECTIVE: OBJECTIVE: ASSESSMENT AND PLAN: <Geoffrey Hinkle - Last Filed: 04/30/19 02:05>
== END 2019-04-11 16:30 | disposition home or self-care (01) | DRG 566 ==
LOC: JER 20:23 → JERBED 04-11 00:14 → J3W 04-11 03:27
PROVIDERS: ADMIT Internal Medicine; ATTEND Internal Medicine
DX: O21.1 Hyperemesis gravidarum with metabolic disturbance (principal); Z3A.14 14 weeks gestation of pregnancy; O21.9 Vomiting of pregnancy, unspecified; E86.0 Dehydration; D72.829 Elevated white blood cell count, unspecified; O24.012 Pre-existing type 1 diabetes mellitus, in pregnancy, second trimester; R82.71 Bacteriuria
CPT/HCPCS: 36415; 76700-TC; 80048; 80053; 80307; 81003; 82010; 82803; 82962; 83605; 83735; 84100; 84443; 84703; 85025; 87040; 87804; 93005; 93010; 99284-25; J0131; J7030

== ENCOUNTER 2020-03-15 09:31 | Emergency (ER) | payer OTHER ==
[2020-03-15 09:40] VITALS: BMI 29.0
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
--- OUTSIDE RECORDS SUMMARY | 2020-03-15 10:17 | XMS ---
:1990 Author Organization [facility] Care Team Providers Name Role Phone Aszalos, Felicita Unavailable Unavailable Aszalos, Felicita Unavailable Unavailable Aszalos, Felicita Unavailable Unavailable Aszalos, Felicita Unavailable Unavailable Aszalos, Felicita Unavailable Unavailable Aszalos, Felicita Unavailable Unavailable Aszalos, Felicita Unavailable Unavailable Aszalos, Felicita Unavailable Unavailable Aszalos, Felicita Unavailable Unavailable RAJAN Fontaine Unavailable Unavailable Re-disclosure Warning The records that you are about to access may contain information from federally- assisted alcohol or drug abuse programs. If such information is present, then the following federally mandated warning applies: This information has been disclosed to you from records protected by federal confidentiality rules (42 CFR part 2). The federal rules prohibit you from making any further disclosure of this information unless further disclosure is expressly permitted by the written consent of the person to whom it pertains or as otherwise permitted by 42 CFR part 2. A general authorization for the release of medical or other information is NOT sufficient for this purpose. The Federal rules restrict any use of the information to criminally investigate or prosecute any alcohol or drug abuse patient.The records that you are about to access may contain highly sensitive health information, the redisclosure of which is protected by Article 27-F of the [facility] Public Health law. If you continue you may haveaccess to information: Regarding HIV / AIDS; Provided by facilities licensed or operated by the [facility] Office of Mental Health; or Provided by the [facility] Office for People With Developmental Disabilities. If such information is present, then the following [facility] mandated warning applies: This information has been disclosed to you from confidential records which are protected by state law. State law prohibits you from making any further disclosure of this information without the specific written consent of the person to whom it pertains, or as otherwise permitted by law. Any unauthorized further disclosure in violation of state law may result in a fine or nursing home sentence or both. A general authorization for the release of medical or other information is NOT sufficient authorization for further disclosure. Encounters Encounter Providers Location Date Indications Data Source(s ) Emergency Admitter: RAJAN Grace 03/17/2019 [facility] TD Fontaine 06:04:00 AM EDT Medical C enter - 03/17/2019 09:08:00 PM EDT Patient discharged. Outpatient [facility] 03/02/2019 12:00:00 e CW3 ([facility] A28 AM EDT - 03/02/2019 [facility] 12:00:00 AM EDT Care) Outpatient [facility] 02/23/2019 12:00:00 e CW3 ([facility] A28 AM EDT - 02/23/2019 [facility] 12:00:00 AM EDT Care) Outpatient [facility] 02/22/2019 12:00:00 e CW3 ([facility] A28 AM EDT - 02/22/2019 [facility] 12:00:00 AM EDT Care) Inpatient Attender: Allyson Grace-HAL5 02/13/2019 10:10:00 [facility] Braddmitter: AM EDT - 02/15/2019 Medical [facility] Allyson 03:30:00 PM EDT AszalosReferrer: Allyson Vega Patient discharged. Insurance Providers Payer name Policy type / Policy ID Covered Covered republican's Policy Plan Coverage type republican ID relationship to Waters Information waters CHAD [id number] SP [id number] 000 [facility] NON [facility] MEDICAID [id number] [facility] [id number] 50 [facility] [id number] [place] W [id number] [employer] [id number] 1 [id number] Medicare CHAD CARE W [id number] 01 [id number] 50 [place] CHAD CARE W 01 [place] CHAD CARE W [id number] 01 [id number] 50 [place] [id number] 01 [id number] 01 [id number] 000 M [id number] 01 [id number] 01 [id number] CHAD W [id number] 01 [id number] 000 CHAD W [id number] 01 [id number] 000 "" W [id number] 01 [id number] 000 CHAD CARE W [id number] 01 [id number] [place] CHAD W [id number] 01 [id number] 000 W [id number] 01 [id number] CHAD W [id number] 01 [id number] 000 Problems, Conditions, and Diagnoses Code Display Name Description Problem Type Effective Data Sour ce(s) Dates E11.9 Type 2 diabetes TYPE 2 DIABETES Diagnosis 03/17/2019 Richardankit Lester mellitus without MELLITUS [facility]:04[facility] COMPLICATIONS EDT Z3A.10 10 weeks gestation 10 WEEKS GESTATION Diagnosis 9 [facility] of OF 06:04:00 AM Medical C enter EDT K59.00 Constipation, CONSTIPATION, Diagnosis 03/17/2019 [facility] garza unspecified UNSPECIFIED 06:04:[address] EDT O21.9 Vomiting of VOMITING OF Diagnosis 03/17/2019 [facility] Jamaal limon , , 06:04:00 AM Medical Cent[facility] r unspecified UNSPECIFIED EDT Z00.00 Encounter for ENCNTR FOR GENERAL Diagnosis 03/17/2019 Allan Lester general adult ADULT MEDICAL EXAM 06:04:00 AM [facility] medical examination W/O ABNORMAL EDT without abnormal FINDINGS findings E10.65 Type 1 diabetes TYPE 1 DIABETES Diagnosis 02/15/2019 Richard Lester mellitus with MELLITUS WITH 03:30:00 PM [facility] hyperglycemia HYPERGLYCEMIA EDT Z79.4 penitentiary (current) VP SALES Diagnosis 02/15/2019 [facility] use of insulin (CURRENT) USE OF 03:30:00 PM [facility] INSULIN EDT Z3A.01 Less than 8 weeks LESS THAN 8 WEEKS Diagnosis 02/15/2019 [facility] gestation of GESTATION OF 03:30:00 PM Medical C enter EDT O21.0 Mild hyperemesis MILD HYPEREMESIS Diagnosis 02/13/2019 int [facility]ler gravidarum GRAVIDARUM 10:10:00 AM Medical Cente r EDT Results ID Date Data Source [id number] 09/16/2019 10:15:00 AM EDT [facility] Name Value Range Interpretation Description Data Sup porting Code Source(s) Document(s ) SARS [facility] Coronavirus 2 RNA Presence Respiratory Specimen PARAM Probe Detection This lab was ordered by [facility] and rep orted by [facility]. ID Date Data Source Liver 03/17/2019 06:45:00 AM EDT [facility] Profile.[id number] Name Value Range Interpretation Description Data Sup porting Code Source(s) Document(s ) Alanine 7-30 <content [facility] aminotransferase styleCode="Bold"> [facility] [Enzymatic Alanine Medical activity/volume] Aminotransferase Center in Serum or Plasma (ALT) </content>22 IU/L<content styleCode="Italic s"> (7-30 IU/L)</content> Alkaline 38-126 <content [facility] phosphatase styleCode="Bold"> [facility] [Enzymatic Alkaline Medical activity/volume] Phosphatase (ALP) Cente r in Serum or Plasma </content>68 IU/L<content styleCode="Italic s"> (38-126 IU/L)</content> Aspartate 14-36 <content [facility] aminotransferase styleCode="Bold"> [facility] [Enzymatic Aspartate Medical activity/volume] Aminotransferase Center in Serum or Plasma (AST) </content>29 IU/L<content styleCode="Italic s"> (14-36 IU/L)</content> Bilirubin.total 0.2-1.3 <content [facility] [Mass/volume] in styleCode="Bold"> [facility] Serum or Plasma Bilirubin Total Medical </content>0.6 Center MG/DL<content styleCode="Italic s"> (0.2-1.3 MG/DL)</content> UNK 0.0-0.3 <content [facility] styleCode="Bold"> [facility] Bilirubin, Direct Medical </content>< 0.2 Center MG/DL<content styleCode="Italic s"> (0.0-0.3 MG/DL)</content> Albumin 3.5-5.0 <content [facility] [Mass/volume] in styleCode="Bold"> [facility] hs Serum or Plasma Albumin Medical </content>4.5 Center G/DL<content styleCode="Italic s"> (3.5-5.0 G/DL)</content> ID Date Data Source HematologyRou.[id number] 03/17/2019 06:45:00 AM EDT Allan nt [facility] 0400 Name Value Range Interpretation Description Data Sup porting Code Source(s) Document(s ) Erythrocytes 4.0-5.1 Below low normal <content [facility] [#/volume] in styleCode="Bold [place] Blood by ">Red Blood Medical Automated count Cell Count Center </content>3.63 MCUMM L<content styleCode="Ital ics"> (4.0-5.1 MCUMM)</content > Hematocrit 36.0-46. Below low normal <content [facility] [Volume 0 styleCode="Bold [facility] Fraction] of ">Hematocrit Medical Blood by </content>35.2 Center Automated count % L<content styleCode="Ital ics"> (36.0-46.0 %)</content> Erythrocyte mean 80.0-100 <content [facility] corpuscular .0 styleCode="Bold [facility] volume [Entitic ">Mean Medical volume] by Corpuscular Center Automated count Volume </content>97.0 FL<content styleCode="Ital ics"> (80.0-100.0 FL)</content> Hemoglobin 12.3-16. <content [facility] [Mass/volume] in 0 styleCode="Bold [facility] Blood ">Hemoglobin Medical </content>12.6 Center G/DL<content styleCode="Ital ics"> (12.3-16.0 G/DL)</content> Leukocytes 4.4-11.0 Above high <content [facility] [#/volume] in normal styleCode="Bold [place] Blood by ">White Blood Medical Automated count Cell Count Center </content>13.07 KCUMM H<content styleCode="Ital ics"> (4.4-11.0 KCUMM)</content > UNK 0 <content Saint styleCode="Bold [facility]ler ">Nucleated Red Medical Blood Cell Center </content>0.0 /100<content styleCode="Ital ics"> (0 /100)</content> Platelet mean 8.0-11.0 <content [facility] volume [Entitic styleCode="Bold Tayler volume] in Blood ">Mean Platelet Medical by Automated Volume Center count </content>10.3 FL<content styleCode="Ital ics"> (8.0-11.0 FL)</content> Erythrocyte 11.5-14. <content [facility] distribution 5 styleCode="Bold [facility] width [Ratio] by ">Red Cell Medical Automated count Distribution Center Width </content>12.8 %<content styleCode="Ital ics"> (11.5-14.5 %)</content> Erythrocyte mean 32.0-37. <content [facility] corpuscular 0 styleCode="Bold Tayler hemoglobin ">Mean Corpus. Medical concentration Hgb Center [Mass/volume] by Concentration Automated count (MCHC) </content>35.8 G/DL<content styleCode="Ital ics"> (32.0-37.0 G/DL)</content> Platelets 130-400 <content Saint [#/volume] in styleCode="Bold [facility] Blood by ">Platelet Medical Automated count Count Center </content>268 KCUMM<content styleCode="Ital ics"> (130-400 KCUMM)</content > Erythrocyte mean 26.0-34. Above high <content [facility] corpuscular 0 normal styleCode="Bold [facility]ler hemoglobin ">Mean Medical [Entitic mass] Corposcular Center by Automated Hemoglobin count </content>34.7 PG H<content styleCode="Ital ics"> (26.0-34.0 PG)</content> UNK 0.0 <content Saint styleCode="Bold Tayler ">Nucleated Red Medical Blood Cell Center Count </content>0.00 KCUMM<content styleCode="Ital ics"> (0.0 KCUMM)</content > ID Date Data Source GFR(Creatinine).[id number] 03/17/2019 06:45:00 AM EDT [facility] 0-0400 Name Value Range Interpretation Code Description Data Meche rce(s) Supporting Document(s ) UNK > 60 <content [facility] styleCode="Bold"> Medical Cent er EGFR </content>152 GFR<content styleCode="Italic s"> (> 60 GFR)</content> ID Date Data Source CHMROUTINECCDA.[id number] 03/17/2019 06:45:00 AM EDT [facility] -0400 Name Value Range Interpretation Description Data Sup porting Code Source(s) Document(s ) UNK NEGATIVE <content [facility] styleCode="Bold Medical ">[employer] Center </content>SMALL <content styleCode="Ital ics"> (NEGATIVE )</content> Lipase 23-300 <content [facility] [Enzymatic styleCode="Bold Medical activity/v ">Lipase Center olume] in </content>255 Serum or IU/L<content Plasma styleCode="Ital ics"> (23-300 IU/L)</content> ID Date Data Source [facility].[id number] 03/17/2019 06:45:00 AM EDT [facility] Name Value Range Interpretation Description Data Sup porting Code Source(s) Document(s ) Potassium 3.5-5.3 <content [facility] [Moles/volume] in styleCode="Bold"> Tomasz [facility] Serum or Plasma Potassium Medical </content>4.0 Center MEQ/L<content styleCode="Italic s"> (3.5-5.3 MEQ/L)</content> Sodium 137-145 Below low <content [facility] [Moles/volume] in normal styleCode="Bold"> Tomasz phs Serum or Plasma Sodium Medical </content>135 Center MEQ/L L<content styleCode="Italic s"> (137-145 MEQ/L)</content> Creatinine 0.5-1.3 <content [facility] [Mass/volume] in styleCode="Bold"> [facility] Serum or Plasma Creatinine Medical </content>0.6 Center MG/DL<content styleCode="Italic s"> (0.5-1.3 MG/DL)</content> UNK 7-17 <content [facility] styleCode="Bold"> [facility] BUN </content>11 Medical MG/DL<content Center styleCode="Italic s"> (7-17 MG/DL)</content> Glucose 74-106 Above high <content [facility] [Mass/volume] in normal styleCode="Bold"> [facility] Serum or Plasma Glucose Medical </content>264 Center MG/DL H<content styleCode="Italic s"> (74-106 MG/DL)</content> Chloride 98-107 <content [facility] [Moles/volume] in styleCode="Bold"> Tomasz phs Serum or Plasma Chloride Medical </content>100 Center MEQ/L<content styleCode="Italic s"> (98-107 MEQ/L)</content> Calcium 8.4-10. <content [facility] [Mass/volume] in 2 styleCode="Bold"> [facility] hs Serum or Plasma Calcium Medical </content>10.2 Center MG/DL<content styleCode="Italic s"> (8.4-10.2 MG/DL)</content> Carbon dioxide, 22-30 Below low <content [facility] total normal styleCode="Bold"> [facility] [Moles/volume] in Carbon Dioxide Medical Serum or Plasma </content>21 Center MEQ/L L<content styleCode="Italic s"> (22-30 MEQ/L)</content> Aspartate 14-36 <content [facility] aminotransferase styleCode="Bold"> [facility] hs [Enzymatic Aspartate Medical activity/volume] Aminotransferase Center in Serum or Plasma (AST) </content>29 IU/L<content styleCode="Italic s"> (14-36 IU/L)</content> UNK > 60 <content [facility] styleCode="Bold"> [facility] EGFR Medical </content>152 Center GFR<content styleCode="Italic s"> (> 60 GFR)</content> Alkaline 38-126 <content [facility] phosphatase styleCode="Bold"> [facility] [Enzymatic Alkaline Medical activity/volume] Phosphatase (ALP) Cente r in Serum or Plasma </content>68 IU/L<content styleCode="Italic s"> (38-126 IU/L)</content> Alanine 7-30 <content [facility] aminotransferase styleCode="Bold"> [facility] [Enzymatic Alanine Medical activity/volume] Aminotransferase Center in Serum or Plasma (ALT) </content>22 IU/L<content styleCode="Italic s"> (7-30 IU/L)</content> Bilirubin.total 0.2-1.3 <content [facility] [Mass/volume] in styleCode="Bold"> [facility] hs Serum or Plasma Bilirubin Total Medical </content>0.6 Center MG/DL<content styleCode="Italic s"> (0.2-1.3 MG/DL)</content> Albumin 3.5-5.0 <content [facility] [Mass/volume] in styleCode="Bold"> [facility] hs Serum or Plasma Albumin Medical </content>4.5 Center G/DL<content styleCode="Italic s"> (3.5-5.0 G/DL)</content> ID Date Data Source Urinalysis.[id number] 03/17/2019 06:38:00 AM EDT [facility] 0 Name Value Range Interpretation Description Data Sup porting Code Source(s) Document(s ) Color of Urine YELLOW <content [facility] styleCode="Paulina Tayler d">Color, Medical Urine Center </content>YELL OW <content styleCode="Josette lics"> (YELLOW )</content> UNK CLEAR <content [facility] styleCode="Paulina Tayler d">Urine Medical Clarity Center </content>CHRISSY R <content styleCode="Josette lics"> (CLEAR )</content> Ketones NEGATIVE <content [facility] [Mass/volume] styleCode="Paulina Tayler in Urine by d">Urine Medical Test strip Ketone Center </content>>=80 MG/DL<content styleCode="Josette lics"> (NEGATIVE MG/DL)</conten t> Hemoglobin NEGATIVE <content [facility] [Presence] in styleCode="Paulina Tayler Urine by Test d">Urine Blood Medical strip </content>SMAL Center L <content styleCode="Josette lics"> (NEGATIVE )</content> Specific 1.015-1.02 <content [facility] gravity of 5 styleCode="Paulina Tayler Urine by Test d">Urine Medical strip Specific Center [place] </content>1.02 5 <content styleCode="Josette lics"> (1.015-1.025 )</content> UNK NEGATIVE <content Saint styleCode="Paulina Tayler d">Urine Medical Bilirubin Center </content>NEGA TIVE <content styleCode="Josette lics"> (NEGATIVE )</content> Glucose NEGATIVE <content Saint [Mass/volume] styleCode="Paulina Tayler in Urine by d">Urine Medical Test strip Glucose Center </content>500 MG/DL<content styleCode="Josette lics"> (NEGATIVE MG/DL)</conten t> Leukocyte NEGATIVE <content Saint esterase styleCode="Paulina Tayler [Presence] in d">Urine Medical Urine by Test Leukocyte Center strip </content>NEGA TIVE <content styleCode="Josette lics"> (NEGATIVE )</content> pH of Urine by 4.5-8.0 <content Saint Test strip styleCode="Paulina Tayler d">Urine pH Medical </content>5.5 Center <content styleCode="Josette lics"> (4.5-8.0 )</content> Urobilinogen 0.2-1.0 <content Saint [Units/volume] styleCode="Paulina Tayler in Urine by d">Urine Medical Test strip Urobilinogen Center </content>0.2 MG/DL<content styleCode="Josette lics"> (0.2-1.0 MG/DL)</conten t> Protein NEGATIVE <content [facility] [Mass/volume] styleCode="Paulina Tayler in Urine by d">Urine Medical Test strip Protein Center </content>30 MG/DL<content styleCode="Josette lics"> (NEGATIVE MG/DL)</conten t> Nitrite NEGATIVE <content Saint [Presence] in styleCode="Paulina Lester Urine by Test d">Urine Medical strip Nitrite Center </content>NEGA TIVE <content styleCode="Josette lics"> (NEGATIVE )</content> UNK NONE SEEN <content Saint styleCode="Paulina Tayler d">Epithelial Medical Cell Center </content>0-2 HPF<content styleCode="Josette lics"> (NONE SEEN HPF)</content> UNK 0-3 <content Saint styleCode="Paulina Tayler d">Urine Red Medical Blood Cell Center </content>3-5 HPF<content styleCode="Josette lics"> (0-3 HPF)</content> ID Date Data Source Hormones.[id number] 02/15/2019 06:10:00 AM EDT Health system Name Value Range Interpretation Description Data Sup porting Code Source(s) Document(s ) Thyroxine (T4) 0.78-2.1 <content [facility] free 9 styleCode="Paulina Tayler [Mass/volume] d">T4 Free Medical in Serum or </content>1.10 Center Plasma NG/DL<content styleCode="Josette lics"> (0.78-2.19 NG/DL)</conten t> Thyrotropin 0.465-4. <content Saint [Units/volume] 68 styleCode="Paulina Tayler in Serum or d">Thyroid Medical Plasma by Stimulating Center Detection Hormone limit <= 0.05 </content>0.72 mIU/L 6 MIU/L<content styleCode="Josette lics"> (0.465-4.68 MIU/L)</conten t> ID Date Data Source HematologyRou.[id number] 02/15/2019 06:10:00 AM EDT [facility] 0400 Name Value Range Interpretation Description Data Sup porting Code Source(s) Document(s ) Hemoglobin 12.3-16. <content Saint [Mass/volume] in 0 styleCode="Bold [facility] Blood ">Hemoglobin Medical </content>12.3 Center G/DL<content styleCode="Ital ics"> (12.3-16.0 G/DL)</content> Leukocytes 4.4-11.0 <content Saint [#/volume] in styleCode="Bold [facility] Blood by ">White Blood Medical Automated count Cell Count Center </content>9.67 KCUMM<content styleCode="Ital ics"> (4.4-11.0 KCUMM)</content > Erythrocytes 4.0-5.1 Below low normal <content Saint [#/volume] in styleCode="Bold Tayler Blood by ">Red Blood Medical Automated count Cell Count Center </content>3.67 MCUMM L<content styleCode="Ital ics"> (4.0-5.1 MCUMM)</content > Erythrocyte mean 80.0-100 <content [facility] corpuscular .0 styleCode="Bold Tayler volume [Entitic ">Mean Medical volume] by Corpuscular Center Automated count Volume </content>96.7 FL<content styleCode="Ital ics"> (80.0-100.0 FL)</content> Erythrocyte 11.5-14. <content [facility] distribution 5 styleCode="Bold Tayler width [Ratio] by ">Red Cell Medical Automated count Distribution Center Width </content>12.2 %<content styleCode="Ital ics"> (11.5-14.5 %)</content> Hematocrit 36.0-46. Below low normal <content Saint [Volume 0 styleCode="Bold Tayler Fraction] of ">Hematocrit Medical Blood by </content>35.5 Center Automated count % L<content styleCode="Ital ics"> (36.0-46.0 %)</content> Erythrocyte mean 26.0-34. <content [facility] corpuscular 0 styleCode="Bold Tayler hemoglobin ">Mean Medical [Entitic mass] Corposcular Center by Automated Hemoglobin count </content>33.5 PG<content styleCode="Ital ics"> (26.0-34.0 PG)</content> Erythrocyte mean 32.0-37. <content [facility] corpuscular 0 styleCode="Bold Tayler hemoglobin ">Mean Corpus. Medical concentration Hgb Center [Mass/volume] by Concentration Automated count (MCHC) </content>34.6 G/DL<content styleCode="Ital ics"> (32.0-37.0 G/DL)</content> Neutrophils 36-66 <content [facility] [#/volume] in styleCode="Bold [facility] Blood by ">Neutrophil Medical Automated count </content>59.8 Center %<content styleCode="Ital ics"> (36-66 %)</content> Platelet mean 8.0-11.0 <content [facility] volume [Entitic styleCode="Bold Tayler volume] in Blood ">Mean Platelet Medical by Automated Volume Center count </content>10.5 FL<content styleCode="Ital ics"> (8.0-11.0 FL)</content> UNK 1.6-7.3 <content Saint styleCode="Bold Tayler ">Neutrophil Medical Count Center </content>5.78 KCUMM<content styleCode="Ital ics"> (1.6-7.3 KCUMM)</content > Platelets 130-400 <content Saint [#/volume] in styleCode="Bold Tayler Blood by ">Platelet Medical Automated count Count Center </content>215 KCUMM<content styleCode="Ital ics"> (130-400 KCUMM)</content > UNK 0.2-0.9 <content Saint styleCode="Bold Tayler ">Monocyte Medical Count Center </content>0.58 KCUMM<content styleCode="Ital ics"> (0.2-0.9 KCUMM)</content > Monocytes 3.0-10.0 <content Saint [#/volume] in styleCode="Bold [facility]ler Blood by ">Monocyte Medical Automated count </content>6.0 Center %<content styleCode="Ital ics"> (3.0-10.0 %)</content> UNK 1.0-4.8 <content Saint styleCode="Bold Tayler ">Lymphocyte Medical Count Center </content>3.20 KCUMM<content styleCode="Ital ics"> (1.0-4.8 KCUMM)</content > Lymphocytes 24.0-44. <content Saint [#/volume] in 0 styleCode="Bold Tayler Blood by ">Lymphocyte Medical Automated count </content>33.1 Center %<content styleCode="Ital ics"> (24.0-44.0 %)</content> Eosinophils 0-5.0 <content Saint [#/volume] in styleCode="Bold Tayler Blood by ">Eosinophil Medical Automated count </content>0.3 Center %<content styleCode="Ital ics"> (0-5.0 %)</content> Basophils 0.0-1.0 <content Saint [#/volume] in styleCode="Bold Tayler Blood by ">Basophil Medical Automated count </content>0.3 Center %<content styleCode="Ital ics"> (0.0-1.0 %)</content> UNK 0.0-0.6 <content Saint styleCode="Bold Tayler ">Eosinophil Medical Count Center </content>0.03 KCUMM<content styleCode="Ital ics"> (0.0-0.6 KCUMM)</content > UNK 0.0-0.3 <content Saint styleCode="Bold Tayler ">Basophil Medical Count Center </content>0.03 KCUMM<content styleCode="Ital ics"> (0.0-0.3 KCUMM)</content > UNK 0 <content Saint styleCode="Bold Tayler ">Nucleated Red Medical Blood Cell Center </content>0.0 /100<content styleCode="Ital ics"> (0 /100)</content> UNK 0-0.1 <content Saint styleCode="Bold Tayler ">Immature Medical Granulocyte Center Count </content>0.05 KCUMM<content styleCode="Ital ics"> (0-0.1 KCUMM)</content > UNK < 1 <content [facility] styleCode="Bold Tayler ">Immature Medical Granulocyte Center Ratio </content>0.5 %<content styleCode="Ital ics"> (< 1 %)</content> UNK 0.0 <content [facility] styleCode="Bold Tayler ">Nucleated Red Medical Blood Cell Center Count </content>0.00 KCUMM<content styleCode="Ital ics"> (0.0 KCUMM)</content > ID Date Data Source GFR(Creatinine).[id number] 02/15/2019 06:10:00 AM EDT [facility] 0-0400 Name Value Range Interpretation Code Description Data Meche rce(s) Supporting Document(s ) UNK > 60 <content [facility] styleCode="Bold"> Medical Cent er EGFR </content>127 GFR<content styleCode="Italic s"> (> 60 GFR)</content> ID Date Data Source BMP.[id number] 02/15/2019 06:10:00 AM EDT [facility] Name Value Range Interpretation Description Data Sup porting Code Source(s) Document(s ) Potassium 3.5-5.3 <content [facility] [Moles/volume] styleCode="Paulina Tayler in Serum or d">Potassium Medical Plasma </content>4.0 Center MEQ/L<content styleCode="Josette lics"> (3.5-5.3 MEQ/L)</conten t> Sodium 137-145 Below low normal <content Saint [Moles/volume] styleCode="Paulina Tayler in Serum or d">Sodium Medical Plasma </content>136 Center MEQ/L L<content styleCode="Josette lics"> (137-145 MEQ/L)</conten t> Carbon 22-30 Below low normal <content [facility] dioxide, total styleCode="Paulina Tayler [Moles/volume] d">Carbon Medical in Serum or Dioxide Center Plasma </content>19 MEQ/L L<content styleCode="Josette lics"> (22-30 MEQ/L)</conten t> Chloride 98-107 <content [facility] [Moles/volume] styleCode="Paulina Tayler in Serum or d">Chloride Medical Plasma </content>107 Center MEQ/L<content styleCode="Josette lics"> (98-107 MEQ/L)</conten t> UNK 7-17 <content [facility] styleCode="Paulina Tayler d">BUN Medical </content>11 Center MG/DL<content styleCode="Josette lics"> (7-17 MG/DL)</conten t> Creatinine 0.5-1.3 <content [facility] [Mass/volume] styleCode="Paulina Hintons in Serum or d">Creatinine Medical Plasma </content>0.7 Center MG/DL<content styleCode="Josette lics"> (0.5-1.3 MG/DL)</conten t> Glucose 74-106 Above high normal <content [facility] [Mass/volume] styleCode="Paulina Tayler in Serum or d">Glucose Medical Plasma </content>194 Center MG/DL H<content styleCode="Josette lics"> (74-106 MG/DL)</conten t> Calcium 8.4-10.2 <content [facility] [Mass/volume] styleCode="Paulina Hintons in Serum or d">Calcium Medical Plasma </content>9.4 Center MG/DL<content styleCode="Josette lics"> (8.4-10.2 MG/DL)</conten t> UNK > 60 <content [facility] styleCode="Paulina Hintons d">EGFR Medical </content>127 Center GFR<content styleCode="Josette lics"> (> 60 GFR)</content> ID Date Data Source Urinalysis.[id number] 02/14/2019 08:20:00 PM EDT [facility] 0 Name Value Range Interpretation Description Data Sup porting Code Source(s) Document(s ) Color of Urine YELLOW <content [facility] styleCode="Paulina Hintons d">Color, Medical Urine Center </content>YELL OW <content styleCode="Josette lics"> (YELLOW )</content> Specific 1.015-1.02 <content [facility] gravity of 5 styleCode="Paulina Lester Urine by Test d">Urine Medical strip Specific Center [place] </content>1.01 5 <content styleCode="Josette lics"> (1.015-1.025 )</content> UNK NEGATIVE <content [facility] styleCode="Paulina Hintons d">Urine Medical Bilirubin Center </content>NEGA TIVE <content styleCode="Josette lics"> (NEGATIVE )</content> Glucose NEGATIVE <content [facility] [Mass/volume] styleCode="Paulina Hintons in Urine by d">Urine Medical Test strip Glucose Center </content>500 MG/DL<content styleCode="Josette lics"> (NEGATIVE MG/DL)</conten t> UNK CLEAR <content [facility] styleCode="Paulina Tayler d">Urine Medical Clarity Center </content>CHRISSY R <content styleCode="Josette lics"> (CLEAR )</content> Ketones NEGATIVE <content [facility] [Mass/volume] styleCode="Paulina Tayler in Urine by d">Urine Medical Test strip Ketone Center </content>>=80 MG/DL<content styleCode="Josette lics"> (NEGATIVE MG/DL)</conten t> Hemoglobin NEGATIVE <content [facility] [Presence] in styleCode="Paulina Hintons Urine by Test d">Urine Blood Medical strip </content>NEGA Center TIVE <content styleCode="Josette lics"> (NEGATIVE )</content> Urobilinogen 0.2-1.0 <content [facility] [Units/volume] styleCode="Paulina Hintons in Urine by d">Urine Medical Test strip Urobilinogen Center </content>0.2 MG/DL<content styleCode="Josette lics"> (0.2-1.0 MG/DL)</conten t> pH of Urine by 4.5-8.0 <content [facility] Test strip styleCode="Paulina Tayler d">Urine pH Medical </content>6.0 Center <content styleCode="Josette lics"> (4.5-8.0 )</content> Protein NEGATIVE <content [facility] [Mass/volume] styleCode="Paulina Tayler in Urine by d">Urine Medical Test strip Protein Center </content>NEGA TIVE MG/DL<content styleCode="Josette lics"> (NEGATIVE MG/DL)</conten t> Leukocyte NEGATIVE <content [facility] esterase styleCode="Paulina Hintons [Presence] in d">Urine Medical Urine by Test Leukocyte Center strip </content>NEGA TIVE <content styleCode="Josette lics"> (NEGATIVE )</content> Nitrite NEGATIVE <content [facility] [Presence] in styleCode="Paulina Tayler Urine by Test d">Urine Medical strip Nitrite Center </content>NEGA TIVE <content styleCode="Josette lics"> (NEGATIVE )</content> ID Date Data Source MROUTINECCDA.[id number] 02/14/2019 01:07:00 PM EDT [facility] -0400 Name Value Range Interpretation Description Data Sup porting Code Source(s) Document(s ) Lactate 0.7-2.0 Below low normal <content [facility] Tayler [Mass/volum styleCode="Bold Medical e] in Serum ">Lactic Acid Center or Plasma </content>0.6 MMOLL L<content styleCode="Ital ics"> (0.7-2.0 MMOLL)</content > ID Date Data Source HematologyRou.[id number] 02/14/2019 05:40:00 AM EDT [facility] 0400 Name Value Range Interpretation Description Data Sup porting Code Source(s) Document(s ) Erythrocytes 4.0-5.1 Below low normal <content [facility] [#/volume] in styleCode="Bold Tayler Blood by ">Red Blood Medical Automated count Cell Count Center </content>3.71 MCUMM L<content styleCode="Ital ics"> (4.0-5.1 MCUMM)</content > Hemoglobin 12.3-16. <content [facility] [Mass/volume] in 0 styleCode="Bold Tayler Blood ">Hemoglobin Medical </content>12.6 Center G/DL<content styleCode="Ital ics"> (12.3-16.0 G/DL)</content> Leukocytes 4.4-11.0 Above high <content [facility] [#/volume] in normal styleCode="Bold Tayler Blood by ">White Blood Medical Automated count Cell Count Center </content>14.05 KCUMM H<content styleCode="Ital ics"> (4.4-11.0 KCUMM)</content > Erythrocyte 11.5-14. <content [facility] distribution 5 styleCode="Bold Tayler width [Ratio] by ">Red Cell Medical Automated count Distribution Center Width </content>11.9 %<content styleCode="Ital ics"> (11.5-14.5 %)</content> Hematocrit 36.0-46. Below low normal <content [facility] [Volume 0 styleCode="Bold Tayler Fraction] of ">Hematocrit Medical Blood by </content>35.1 Center Automated count % L<content styleCode="Ital ics"> (36.0-46.0 %)</content> Erythrocyte mean 26.0-34. <content [facility] corpuscular 0 styleCode="Bold Tayler hemoglobin ">Mean Medical [Entitic mass] Corposcular Center by Automated Hemoglobin count </content>34.0 PG<content styleCode="Ital ics"> (26.0-34.0 PG)</content> Erythrocyte mean 80.0-100 <content [facility] corpuscular .0 styleCode="Bold Tayler volume [Entitic ">Mean Medical volume] by Corpuscular Center Automated count Volume </content>94.6 FL<content styleCode="Ital ics"> (80.0-100.0 FL)</content> Erythrocyte mean 32.0-37. <content [facility] corpuscular 0 styleCode="Bold Tayler hemoglobin ">Mean Corpus. Medical concentration Hgb Center [Mass/volume] by Concentration Automated count (MCHC) </content>35.9 G/DL<content styleCode="Ital ics"> (32.0-37.0 G/DL)</content> Platelets 130-400 <content [facility] [#/volume] in styleCode="Bold Tayler Blood by ">Platelet Medical Automated count Count Center </content>225 KCUMM<content styleCode="Ital ics"> (130-400 KCUMM)</content > Platelet mean 8.0-11.0 <content [facility] volume [Entitic styleCode="Bold Tayler volume] in Blood ">Mean Platelet Medical by Automated Volume Center count </content>10.7 FL<content styleCode="Ital ics"> (8.0-11.0 FL)</content> UNK 1.6-7.3 Above high <content [facility] normal styleCode="Bold Tayler ">Neutrophil Medical Count Center </content>11.12 KCUMM H<content styleCode="Ital ics"> (1.6-7.3 KCUMM)</content > Neutrophils 36-66 Above high <content [facility] [#/volume] in normal styleCode="Bold Tayler Blood by ">Neutrophil Medical Automated count </content>79.1 Center % H<content styleCode="Ital ics"> (36-66 %)</content> UNK 1.0-4.8 <content [facility] styleCode="Bold Tayler ">Lymphocyte Medical Count Center </content>2.33 KCUMM<content styleCode="Ital ics"> (1.0-4.8 KCUMM)</content > Lymphocytes 24.0-44. Below low normal <content [facility] [#/volume] in 0 styleCode="Bold Tayler Blood by ">Lymphocyte Medical Automated count </content>16.6 Center % L<content styleCode="Ital ics"> (24.0-44.0 %)</content> Monocytes 3.0-10.0 <content [facility] [#/volume] in styleCode="Bold Tayler Blood by ">Monocyte Medical Automated count </content>3.6 Center %<content styleCode="Ital ics"> (3.0-10.0 %)</content> UNK 0.2-0.9 <content [facility] styleCode="Bold Tayler ">Monocyte Medical Count Center </content>0.51 KCUMM<content styleCode="Ital ics"> (0.2-0.9 KCUMM)</content > Eosinophils 0-5.0 <content [facility] [#/volume] in styleCode="Bold Tayler Blood by ">Eosinophil Medical Automated count </content>0.0 Center %<content styleCode="Ital ics"> (0-5.0 %)</content> UNK 0.0-0.3 <content [facility] styleCode="Bold Tayler ">Basophil Medical Count Center </content>0.01 KCUMM<content styleCode="Ital ics"> (0.0-0.3 KCUMM)</content > UNK 0.0-0.6 <content [facility] styleCode="Bold Tayler ">Eosinophil Medical Count Center </content>0.00 KCUMM<content styleCode="Ital ics"> (0.0-0.6 KCUMM)</content > UNK 0 <content Saint styleCode="Bold Tayler ">Nucleated Red Medical Blood Cell Center </content>0.0 /100<content styleCode="Ital ics"> (0 /100)</content> Basophils 0.0-1.0 <content Saint [#/volume] in styleCode="Bold [facility] Blood by ">Basophil Medical Automated count </content>0.1 Center %<content styleCode="Ital ics"> (0.0-1.0 %)</content> UNK 0-0.1 <content [facility] styleCode="Bold Tayler ">Immature Medical Granulocyte Center Count </content>0.08 KCUMM<content styleCode="Ital ics"> (0-0.1 KCUMM)</content > UNK 0.0 <content Saint styleCode="Bold Tayler ">Nucleated Red Medical Blood Cell Center Count </content>0.00 KCUMM<content styleCode="Ital ics"> (0.0 KCUMM)</content > UNK < 1 <content Saint styleCode="Bold Tayler ">Immature Medical Granulocyte Center Ratio </content>0.6 %<content styleCode="Ital ics"> (< 1 %)</content> ID Date Data Source GFR(Creatinine).[id number] 02/14/2019 05:40:00 AM EDT [facility] 0-0400 Name Value Range Interpretation Code Description Data Meche rce(s) Supporting Document(s ) UNK > 60 <content [facility] styleCode="Bold"> Medical Cent er EGFR </content>152 GFR<content styleCode="Italic s"> (> 60 GFR)</content> ID Date Data Source Coagulation 02/14/2019 05:40:00 AM [facility] ical Center Rout.[id number] EDT Name Value Range Interpretation Description Data Sup porting Code Source(s) Document(s ) UNK 9.0-13.0 <content Saint styleCode="Bold" Tayler >Protime Medical </content>12.3 Center SEC<content styleCode="Itali cs"> (9.0-13.0 SEC)</content> aPTT in 25.1-36. <content [facility] Platelet poor 5 styleCode="Bold" Tayler plasma by >Partial Medical Coagulation Thromboplastin Center assay Time </content>27.9 SEC<content styleCode="Itali cs"> (25.1-36.5 SEC)</content> INR in 0.80-1.2 <content [facility] Platelet poor 0 styleCode="Bold" Tayler plasma by >INR Medical Coagulation </content>1.11 Center assay #<content styleCode="Itali cs"> (0.80-1.20 #)</content> ID Date Data Source ZACHERY.[id number] 02/14/2019 05:40:00 AM EDT [facility] Name Value Range Interpretation Description Data Sup porting Code Source(s) Document(s ) UNK 4.2-5.8 Above high normal <content [facility] styleCode="Paulina Tayler d">Hemoglobin Medical A1C Center </content>12.5 % H<content styleCode="Josette lics"> (4.2-5.8 %)</content> Magnesium 1.6-2.3 <content [facility] [Mass/volume] styleCode="Paulina Tayler in Serum or d">Magnesium Medical Plasma </content>1.8 Center MG/DL<content styleCode="Josette lics"> (1.6-2.3 MG/DL)</conten t> Phosphate 2.5-4.5 <content [facility] [Mass/volume] styleCode="Paulina Tayler in Serum or d">Phosphorus Medical Plasma </content>4.1 Center MG/DL<content styleCode="Josette lics"> (2.5-4.5 MG/DL)</conten t> ID Date Data Source [facility].[id number] 02/14/2019 05:40:00 AM EDT [facility] Name Value Range Interpretation Description Data Sup porting Code Source(s) Document(s ) Chloride 98-107 <content [facility] [Moles/volume] styleCode="Paulina Tayler in Serum or d">Chloride Medical Plasma </content>104 Center MEQ/L<content styleCode="Josette lics"> (98-107 MEQ/L)</conten t> UNK 7-17 <content [facility] styleCode="Paulina Tayler d">BUN Medical </content>10 Center MG/DL<content styleCode="Josette lics"> (7-17 MG/DL)</conten t> Potassium 3.5-5.3 <content [facility] [Moles/volume] styleCode="Paulina Tayler in Serum or d">Potassium Medical Plasma </content>4.3 Center MEQ/L<content styleCode="Josette lics"> (3.5-5.3 MEQ/L)</conten t> Sodium 137-145 Below low normal <content [facility] [Moles/volume] styleCode="Paulina Tayler in Serum or d">Sodium Medical Plasma </content>134 Center MEQ/L L<content styleCode="Josette lics"> (137-145 MEQ/L)</conten t> Carbon 22-30 Below low normal <content [facility] dioxide, total styleCode="Paulina Tayler [Moles/volume] d">Carbon Medical in Serum or Dioxide Center Plasma </content>15 MEQ/L L<content styleCode="Josette lics"> (22-30 MEQ/L)</conten t> Creatinine 0.5-1.3 <content [facility] [Mass/volume] styleCode="Paulina Tayler in Serum or d">Creatinine Medical Plasma </content>0.6 Center MG/DL<content styleCode="Josette lics"> (0.5-1.3 MG/DL)</conten t> UNK > 60 <content [facility] styleCode="Paulina Tayler d">EGFR Medical </content>152 Center GFR<content styleCode="Josette lics"> (> 60 GFR)</content> Glucose 74-106 Above high normal <content [facility] [Mass/volume] styleCode="Paulina Tayler in Serum or d">Glucose Medical Plasma </content>195 Center MG/DL H<content styleCode="Josette lics"> (74-106 MG/DL)</conten t> Calcium 8.4-10.2 <content [facility] [Mass/volume] styleCode="Paulina Tayler in Serum or d">Calcium Medical Plasma </content>9.8 Center MG/DL<content styleCode="Josette lics"> (8.4-10.2 MG/DL)</conten t> ID Date Data Source GFR(Creatinine).[id number] 02/13/2019 09:00:00 PM EDT [facility] 0-0400 Name Value Range Interpretation Code Description Data Meche rce(s) Supporting Document(s ) UNK > 60 <content [facility] styleCode="Bold"> Medical Cent er EGFR </content>152 GFR<content styleCode="Italic s"> (> 60 GFR)</content> ID Date Data Source CHMROUTINECCDA.[id number] 02/13/2019 09:00:00 PM EDT [facility] -0400 Name Value Range Interpretation Code Description Data Meche rce(s) Supporting Document(s ) UNK 0.7-2.0 Above upper panic <content [facility] limits styleCode="Bold" Medical Cente r >Lactic Acid 4hr </content><marisela nt styleCode="Bold" >2.8 MMOLL HH</content><con tent styleCode="Itali cs"> (0.7-2.0 MMOLL)</content> ID Date Data Source BMP.[id number] 02/13/2019 09:00:00 PM EDT [facility] Name Value Range Interpretation Description Data Sup porting Code Source(s) Document(s ) Chloride 98-107 <content [facility] [Moles/volume] styleCode="Paulina Tayler in Serum or d">Chloride Medical Plasma </content>107 Center MEQ/L<content styleCode="Josette lics"> (98-107 MEQ/L)</conten t> Sodium 137-145 <content [facility] [Moles/volume] styleCode="Paulina Hintons in Serum or d">Sodium Medical Plasma </content>137 Center MEQ/L<content styleCode="Josette lics"> (137-145 MEQ/L)</conten t> Potassium 3.5-5.3 <content [facility] [Moles/volume] styleCode="Paulina Tayler in Serum or d">Potassium Medical Plasma </content>4.9 Center MEQ/L<content styleCode="Josette lics"> (3.5-5.3 MEQ/L)</conten t> Glucose 74-106 Above high normal <content [facility] [Mass/volume] styleCode="Paulina Hintons in Serum or d">Glucose Medical Plasma </content>247 Center MG/DL H<content styleCode="Josette lics"> (74-106 MG/DL)</conten t> Creatinine 0.5-1.3 <content [facility] [Mass/volume] styleCode="Paulina Hintons in Serum or d">Creatinine Medical Plasma </content>0.6 Center MG/DL<content styleCode="Josette lics"> (0.5-1.3 MG/DL)</conten t> Carbon 22-30 Below low normal <content [facility] dioxide, total styleCode="Paulina Hintons [Moles/volume] d">Carbon Medical in Serum or Dioxide Center Plasma </content>14 MEQ/L L<content styleCode="Josette lics"> (22-30 MEQ/L)</conten t> UNK 7-17 <content [facility] styleCode="Paulina Hintons d">BUN Medical </content>11 Center MG/DL<content styleCode="Josette lics"> (7-17 MG/DL)</conten t> Calcium 8.4-10.2 <content [facility] [Mass/volume] styleCode="Paulina Tayler in Serum or d">Calcium Medical Plasma </content>10.0 Center MG/DL<content styleCode="Josette lics"> (8.4-10.2 MG/DL)</conten t> UNK > 60 <content [facility] styleCode="Paulina Tayler d">EGFR Medical </content>152 Center GFR<content styleCode="Josette lics"> (> 60 GFR)</content> ID Date Data Source ZACHERY.[id number] 02/13/2019 02:06:00 PM EDT [facility] -0400 Name Value Range Interpretation Description Data Sup porting Code Source(s) Document(s ) Lactate 0.7-2.0 Above upper panic <content [facility] [Mass/volum limits styleCode="Bold Medical e] in Serum ">Lactic Acid Center or Plasma </content><cont ent styleCode="Bold ">3.4 MMOLL HH</content><co ntent styleCode="Ital ics"> (0.7-2.0 MMOLL)</content > ID Date Data Source Urinalysis.[id number] 02/13/2019 11:05:00 AM EDT [facility] 0 Name Value Range Interpretation Description Data Sup porting Code Source(s) Document(s ) Color of Urine YELLOW <content Saint styleCode="Paulina Tayler d">Color, Medical Urine Center </content>YELL OW <content styleCode="Josette lics"> (YELLOW )</content> UNK CLEAR <content [facility] styleCode="Paulina Tayler d">Urine Medical Clarity Center </content>CHRISSY R <content styleCode="Josette lics"> (CLEAR )</content> UNK NEGATIVE <content Saint styleCode="Paulina Tayler d">Urine Medical Bilirubin Center </content>NEGA TIVE <content styleCode="Josette lics"> (NEGATIVE )</content> Glucose NEGATIVE <content [facility] [Mass/volume] styleCode="Paulina Hintons in Urine by d">Urine Medical Test strip Glucose Center </content>>=10 00 MG/DL<content styleCode="Josette lics"> (NEGATIVE MG/DL)</conten t> Ketones NEGATIVE <content [facility] [Mass/volume] styleCode="Paulina Hintons in Urine by d">Urine Medical Test strip Ketone Center </content>40 MG/DL<content styleCode="Josette lics"> (NEGATIVE MG/DL)</conten t> Specific 1.015-1.02 Below low normal <content [facility] gravity of 5 styleCode="Paulina Tayler Urine by Test d">Urine Medical strip Specific Center [place] </content>1.01 0 L<content styleCode="Josette lics"> (1.015-1.025 )</content> Urobilinogen 0.2-1.0 <content [facility] [Units/volume] styleCode="Paulina Tayler in Urine by d">Urine Medical Test strip Urobilinogen Center </content>0.2 MG/DL<content styleCode="Josette lics"> (0.2-1.0 MG/DL)</conten t> Protein NEGATIVE <content [facility] [Mass/volume] styleCode="Paulina Tayler in Urine by d">Urine Medical Test strip Protein Center </content>NEGA TIVE MG/DL<content styleCode="Josette lics"> (NEGATIVE MG/DL)</conten t> pH of Urine by 4.5-8.0 <content [facility] Test strip styleCode="Paulina Tayler d">Urine pH Medical </content>6.0 Center <content styleCode="Josette lics"> (4.5-8.0 )</content> Hemoglobin NEGATIVE <content Saint [Presence] in styleCode="Paulina Tayler Urine by Test d">Urine Blood Medical strip </content>NEGA Center TIVE <content styleCode="Josette lics"> (NEGATIVE )</content> UNK <content [facility] styleCode="Paulina Tayler d">Epithelial Medical Cell Center </content>2-5 LPF (Reference Range: not available)<br/ > Nitrite NEGATIVE <content [facility] [Presence] in styleCode="Paulina Tayler Urine by Test d">Urine Medical strip Nitrite Center </content>NEGA TIVE <content styleCode="Josette lics"> (NEGATIVE )</content> UNK 0-3 <content Saint styleCode="Paulina Tayler d">Urine White Medical Blood Cell Center </content>0-3 HPF<content styleCode="Josette lics"> (0-3 HPF)</content> Leukocyte NEGATIVE <content [facility] esterase styleCode="Paulina Lester [Presence] in d">Urine Medical Urine by Test Leukocyte Center strip </content>NEGA TIVE <content styleCode="Josette lics"> (NEGATIVE )</content> ID Date Data Source Liver 02/13/2019 11:05:00 AM EDT [facility] Profile.[id number] Name Value Range Interpretation Description Data Sup porting Code Source(s) Document(s ) Alkaline 38-126 <content [facility] phosphatase styleCode="Bold"> Tayler [Enzymatic Alkaline Medical activity/volume] Phosphatase (ALP) Cente r in Serum or Plasma </content>91 IU/L<content styleCode="Italic s"> (38-126 IU/L)</content> Bilirubin.total 0.2-1.3 <content [facility] [Mass/volume] in styleCode="Bold"> [place] hs Serum or Plasma Bilirubin Total Medical </content>0.6 Center MG/DL<content styleCode="Italic s"> (0.2-1.3 MG/DL)</content> Alanine 7-30 <content [facility] aminotransferase styleCode="Bold"> [place] hs [Enzymatic Alanine Medical activity/volume] Aminotransferase Center in Serum or Plasma (ALT) </content>21 IU/L<content styleCode="Italic s"> (7-30 IU/L)</content> Aspartate 14-36 <content [facility] aminotransferase styleCode="Bold"> [place] hs [Enzymatic Aspartate Medical activity/volume] Aminotransferase Center in Serum or Plasma (AST) </content>29 IU/L<content styleCode="Italic s"> (14-36 IU/L)</content> Albumin 3.5-5.0 <content [facility] [Mass/volume] in styleCode="Bold"> [place] hs Serum or Plasma Albumin Medical </content>4.2 Center G/DL<content styleCode="Italic s"> (3.5-5.0 G/DL)</content> UNK 0.0-0.3 <content [facility] styleCode="Bold"> Tayler Bilirubin, Direct Medical </content>< 0.2 Center MG/DL<content styleCode="Italic s"> (0.0-0.3 MG/DL)</content> ID Date Data Source HematologyRou.[id number] 02/13/2019 11:05:00 AM EDT [facility] 0400 Name Value Range Interpretation Description Data Sup porting Code Source(s) Document(s ) Leukocytes 4.4-11.0 Above high <content [facility] [#/volume] in normal styleCode="Bold Tayler Blood by ">White Blood Medical Automated count Cell Count Center </content>13.12 KCUMM H<content styleCode="Ital ics"> (4.4-11.0 KCUMM)</content > Erythrocytes 4.0-5.1 Below low normal <content [facility] [#/volume] in styleCode="Bold Tayler Blood by ">Red Blood Medical Automated count Cell Count Center </content>3.86 MCUMM L<content styleCode="Ital ics"> (4.0-5.1 MCUMM)</content > Hemoglobin 12.3-16. <content [facility] [Mass/volume] in 0 styleCode="Bold Tayler Blood ">Hemoglobin Medical </content>13.3 Center G/DL<content styleCode="Ital ics"> (12.3-16.0 G/DL)</content> Erythrocyte 11.5-14. <content [facility] distribution 5 styleCode="Bold Tayler width [Ratio] by ">Red Cell Medical Automated count Distribution Center Width </content>12.0 %<content styleCode="Ital ics"> (11.5-14.5 %)</content> Erythrocyte mean 32.0-37. <content [facility] corpuscular 0 styleCode="Bold Tayler hemoglobin ">Mean Corpus. Medical concentration Hgb Center [Mass/volume] by Concentration Automated count (MCHC) </content>36.3 G/DL<content styleCode="Ital ics"> (32.0-37.0 G/DL)</content> Erythrocyte mean 80.0-100 <content [facility] corpuscular .0 styleCode="Bold Tayler volume [Entitic ">Mean Medical volume] by Corpuscular Center Automated count Volume </content>94.8 FL<content styleCode="Ital ics"> (80.0-100.0 FL)</content> Erythrocyte mean 26.0-34. Above high <content [facility] corpuscular 0 normal styleCode="Bold Tayler hemoglobin ">Mean Medical [Entitic mass] Corposcular Center by Automated Hemoglobin count </content>34.5 PG H<content styleCode="Ital ics"> (26.0-34.0 PG)</content> Hematocrit 36.0-46. <content [facility] [Volume 0 styleCode="Bold Tayler Fraction] of ">Hematocrit Medical Blood by </content>36.6 Center Automated count %<content styleCode="Ital ics"> (36.0-46.0 %)</content> Platelet mean 8.0-11.0 <content [facility] volume [Entitic styleCode="Bold Tayler volume] in Blood ">Mean Platelet Medical by Automated Volume Center count </content>10.8 FL<content styleCode="Ital ics"> (8.0-11.0 FL)</content> UNK 0 <content [facility] styleCode="Bold Tayler ">Nucleated Red Medical Blood Cell Center </content>0.0 /100<content styleCode="Ital ics"> (0 /100)</content> Platelets 130-400 <content [facility] [#/volume] in styleCode="Bold Tayler Blood by ">Platelet Medical Automated count Count Center </content>246 KCUMM<content styleCode="Ital ics"> (130-400 KCUMM)</content > UNK 0.0 <content [facility] styleCode="Bold Tayler ">Nucleated Red Medical Blood Cell Center Count </content>0.00 KCUMM<content styleCode="Ital ics"> (0.0 KCUMM)</content > ID Date Data Source GFR(Creatinine).[id number] 02/13/2019 11:05:00 AM EDT [facility] 0-0400 Name Value Range Interpretation Code Description Data Meche rce(s) Supporting Document(s ) UNK > 60 <content [facility] styleCode="Bold"> Medical Cent er EGFR </content>127 GFR<content styleCode="Italic s"> (> 60 GFR)</content> ID Date Data Source CHMROUTINECCDA.[id number] 02/13/2019 11:05:00 AM EDT [facility] -0400 Name Value Range Interpretation Description Data Sup porting Code Source(s) Document(s ) Lipase 23-300 <content [facility] [Enzymatic styleCode="Bold Medical activity/vo ">Lipase Center lume] in </content>231 Serum or IU/L<content Plasma styleCode="Ital ics"> (23-300 IU/L)</content> UNK 30-110 <content [facility] styleCode="Bold Medical ">Amylase Center </content>74 IU/L<content styleCode="Ital ics"> (30-110 IU/L)</content> Lactate 0.7-2.0 Above upper panic <content [facility] [Mass/volum limits styleCode="Bold Medical e] in Serum ">Lactic Acid Center or Plasma </content><cont ent styleCode="Bold ">2.1 MMOLL HH</content><co ntent styleCode="Ital ics"> (0.7-2.0 MMOLL)</content > ID Date Data Source [facility].[id number] 02/13/2019 11:05:00 AM EDT [facility] Name Value Range Interpretation Description Data Sup porting Code Source(s) Document(s ) Sodium 137-145 <content [facility] [Moles/volume] in styleCode="Bold"> Tomasz phs Serum or Plasma Sodium Medical </content>137 Center MEQ/L<content styleCode="Italic s"> (137-145 MEQ/L)</content> Creatinine 0.5-1.3 <content [facility] [Mass/volume] in styleCode="Bold"> [facility] hs Serum or Plasma Creatinine Medical </content>0.7 Center MG/DL<content styleCode="Italic s"> (0.5-1.3 MG/DL)</content> Carbon dioxide, 22-30 <content [facility] total styleCode="Bold"> [place] [Moles/volume] in Carbon Dioxide Medical Serum or Plasma </content>22 Center MEQ/L<content styleCode="Italic s"> (22-30 MEQ/L)</content> Chloride 98-107 <content [facility] [Moles/volume] in styleCode="Bold"> Tomasz phs Serum or Plasma Chloride Medical </content>100 Center MEQ/L<content styleCode="Italic s"> (98-107 MEQ/L)</content> UNK 7-17 <content [facility] styleCode="Bold"> [place] BUN </content>12 Medical MG/DL<content Center styleCode="Italic s"> (7-17 MG/DL)</content> Potassium 3.5-5.3 <content [facility] [Moles/volume] in styleCode="Bold"> Tomasz phs Serum or Plasma Potassium Medical </content>4.0 Center MEQ/L<content styleCode="Italic s"> (3.5-5.3 MEQ/L)</content> Alanine 7-30 <content [facility] aminotransferase styleCode="Bold"> [facility] [Enzymatic Alanine Medical activity/volume] Aminotransferase Center in Serum or Plasma (ALT) </content>21 IU/L<content styleCode="Italic s"> (7-30 IU/L)</content> Glucose 74-106 Above high <content [facility] [Mass/volume] in normal styleCode="Bold"> [place] hs Serum or Plasma Glucose Medical </content>349 Center MG/DL H<content styleCode="Italic s"> (74-106 MG/DL)</content> Aspartate 14-36 <content [facility] aminotransferase styleCode="Bold"> [facility] [Enzymatic Aspartate Medical activity/volume] Aminotransferase Center in Serum or Plasma (AST) </content>29 IU/L<content styleCode="Italic s"> (14-36 IU/L)</content> Calcium 8.4-10. <content [facility] [Mass/volume] in 2 styleCode="Bold"> [place] hs Serum or Plasma Calcium Medical </content>10.1 Center MG/DL<content styleCode="Italic s"> (8.4-10.2 MG/DL)</content> UNK > 60 <content [facility] styleCode="Bold"> [place] EGFR Medical </content>127 Center GFR<content styleCode="Italic s"> (> 60 GFR)</content> Alkaline 38-126 <content [facility] phosphatase styleCode="Bold"> [place] [Enzymatic Alkaline Medical activity/volume] Phosphatase (ALP) Cente r in Serum or Plasma </content>91 IU/L<content styleCode="Italic s"> (38-126 IU/L)</content> Bilirubin.total 0.2-1.3 <content [facility] [Mass/volume] in styleCode="Bold"> [place] hs Serum or Plasma Bilirubin Total Medical </content>0.6 Center MG/DL<content styleCode="Italic s"> (0.2-1.3 MG/DL)</content> Albumin 3.5-5.0 <content [facility] [Mass/volume] in styleCode="Bold"> [facility] hs Serum or Plasma Albumin Medical </content>4.2 Center G/DL<content styleCode="Italic s"> (3.5-5.0 G/DL)</content> Procedure Social History Code Duration Value Status Description Data Source(s ) Smoking 03/17/2019 Denies Ever completed Denies Ever Smoked [facility] 07:35:00 AM EDT [facility]oked [facility] C enter Smoking 03/17/2019 Denies Ever completed Denies Ever Smoked [facility] 07:26:00 AM EDT [facility]oked Medical C enter Smoking 03/17/2019 Denies Ever completed Denies Ever Smoked [facility] 07:00:00 AM EDT Smoked Medical C enter Smoking 03/17/2019 Denies Ever completed Denies Ever Smoked [facility] 06:36:00 AM EDT Smoked [facility] C enter Smoking 03/17/2019 Denies Ever completed Denies Ever Smoked [facility] 06:09:00 AM EDT Smoked Medical C enter Smoking 03/02/2019 Never Smoker completed Never Smoker eCW3 ([place] 12:00:00 AM EDT [facility]) Smoking 03/02/2019 Never Smoker completed Never Smoker eCW3 ([place] 12:00:00 AM [facility]) Smoking 03/02/2019 Never Smoker completed Never Smoker eCW3 ([place] 12:00:00 AM [facility]) Smoking 02/14/2019 Former Smoker completed Former Smoker [facility] 03:42:00 AM EDT Medical C enter Smoking 02/13/2019 Former Smoker completed Former Smoker [facility] 05:37:00 PM EDT Medical C enter Smoking 02/13/2019 Denies Ever completed Denies Ever Smoked [facility] 10:26:00 AM EDT Smoked Medical C enter Smoking 02/13/2019 Denies Ever completed Denies Ever Smoked [facility] 10:15:00 AM EDT [facility] C enter Smoking 02/13/2019 Denies Ever completed Denies Ever Smoked [facility] 10:13:00 AM EDT Smoked Medical C enter Vital Signs ID Date Data Source UNK Name Value Range Interpretation Code Description Data Source(s) Body temperature 36.003024 36.179546 [facility] Respiratory rate 17 /min 17 /min [facility] Oxygen saturation 99 % 99 % [facility] Heart rate 82 /min 82 /min [facility] Diastolic blood 84 mm[Hg] 84 mm[Hg] [facility] Systolic blood 132 mm[Hg] 132 mm[Hg] [facility] Body temperature 36.844928 36.365486 [facility] Respiratory rate 19 /min 19 /min [facility] Heart rate 96 /min 96 /min [facility] Diastolic blood 80 mm[Hg] 80 mm[Hg] [facility] Systolic blood 140 mm[Hg] 140 mm[Hg] [facility] Body temperature 36.519927 36.291199 [facility] Respiratory rate 17 /min 17 /min [facility] Oxygen saturation 99 % 99 % [facility] P[facility]ximetry Heart rate 83 /min 83 /min [facility] Diastolic blood 77 mm[Hg] 77 mm[Hg] [facility] Systolic blood 132 mm[Hg] 132 mm[Hg] [facility] Body weight 88.263933 kg 88.616848 kg [facility] Body temperature 37.387451 37.361657 [facility] Respiratory rate 16 /min 16 /min [facility] Oxygen saturation 99 % 99 % [facility] [place] in Arterial blood [facility] Center by Pulse oximetry Heart rate 83 /min 83 /min [facility] Body height 167.804841 167.162284 cm [facility] Diastolic blood 66 mm[Hg] 66 mm[Hg] [facility] Systolic blood 133 mm[Hg] 133 mm[Hg] [facility] Body mass index 31.4 kg/m2 31.4 kg/m2 [facility] (BMI) [Ratio] Medical [facility] Diastolic blood 77 mm[Hg] 77 mm[Hg] eCW3 ([facility]) Systolic blood 117 mm[Hg] 117 mm[Hg] eCW3 ([facility]) Body temperature 98.3 [degF] 98.3 [degF] eCW3 ( [facility]) Heart rate 20 /min 20 /min eCW3 ([facility]) Body mass index 32.283 kg/m2 32.283 kg/m2 eCW3 ([place] (BMI) [Ratio] [facility]) Body weight 194 [lb_av] 194 [lb_av] eCW3 ([facility]) Body height 65 [in_i] 65 [in_i] eCW3 ([facility]) Systolic blood 119 mm[Hg] 119 mm[Hg] [facility] Body temperature 36.053855 36.607160 [facility] Respiratory rate 16 /min 16 /min [facility] Heart rate 85 /min 85 /min [facility] Diastolic blood 78 mm[Hg] 78 mm[Hg] [facility] Center Body temperature 37.361319 37.355558 [facility] Respiratory rate 20 /min 20 /min [facility] Heart rate 82 /min 82 /min [facility] Diastolic blood 70 mm[Hg] 70 mm[Hg] [facility] Center Systolic blood 120 mm[Hg] 120 mm[Hg] [facility] Body temperature 36.321779 36.781741 [facility] Respiratory rate 18 /min 18 /min [facility] Heart rate 86 /min 86 /min [facility] Diastolic blood 78 mm[Hg] 78 mm[Hg] [facility] [place] Systolic blood 128 mm[Hg] 128 mm[Hg] [facility] [place] Body temperature 36.637004 36.879326 [facility] Respiratory rate 16 /min 16 /min [facility] Heart rate 94 /min 94 /min [facility] Diastolic blood 81 mm[Hg] 81 mm[Hg] [facility] [place] Systolic blood 129 mm[Hg] 129 mm[Hg] [facility] Body temperature 36.640088 36.664219 [facility] Respiratory rate 18 /min 18 /min [facility] Heart rate 96 /min 96 /min [facility] Diastolic blood 74 mm[Hg] 74 mm[Hg] [facility] [place] Systolic blood 116 mm[Hg] 116 mm[Hg] [facility] Body temperature 36.062948 36.791859 [facility] Respiratory rate 18 /min 18 /min [facility] Heart rate 90 /min 90 /min [facility] Diastolic blood 88 mm[Hg] 88 mm[Hg] [facility] [place] Systolic blood 130 mm[Hg] 130 mm[Hg] [facility] [place] Oxygen saturation 99 % 99 % [facility] Arterial blood Medical Center by Pulse oximetry Body temperature 36.017804 36.049233 [facility] Respiratory rate 19 /min 19 /min [facility] Heart rate 90 /min 90 /min [facility] Diastolic blood 83 mm[Hg] 83 mm[Hg] [facility] [place] Systolic blood 145 mm[Hg] 145 mm[Hg] [facility] Oxygen saturation 100 % 100 % [facility] Arterial blood Medical Center by Pulse oximetry Body temperature 37.789584 37.048635 [facility] Respiratory rate 18 /min 18 /min [facility] Heart rate 86 /min 86 /min [facility] Diastolic blood 80 mm[Hg] 80 mm[Hg] [facility] Systolic blood 132 mm[Hg] 132 mm[Hg] [facility] Oxygen saturation 98 % 98 % [facility] Patricia [facility]p in Arterial blood [facility] by Pulse oximetry Body temperature 37.389238 37.153753 [facility] Respiratory rate 19 /min 19 /min [facility] Heart rate 89 /min 89 /min [facility] Diastolic blood 81 mm[Hg] 81 mm[Hg] [facility] Systolic blood 152 mm[Hg] 152 mm[Hg] [facility] Oxygen saturation 100 % 100 % [facility]xim[facility]
[2020-03-15] MEDS ORDERED: ONDANSETRON 4 MG/2 ML VIAL IVPUSH ONE (10:20)
[2020-03-15] MEDS ORDERED: ACETAMINOPHEN 1000 MG/100 ML VIAL (NON FORMULARY) IVPB ONE (10:29)
[2020-03-15] MEDS ORDERED: LACTATED RINGERS SOLUTION 1000 ML INFUS.BAG IV ONE (10:29)
[2020-03-15] MEDS ORDERED: ACETAMINOPHEN 325 MG TABLET (FP) PO ONE (10:53)
[2020-03-15] MEDS ORDERED: ACETAMINOPHEN 325 MG TABLET (FP) ONE (10:54)
[2020-03-15 11:06] LABS: BASO % 0.4 % (0-2.0); EOS % 0.6 % (0-4.5); HEMATOCRIT 40.8 % (32.4-45.2); HEMOGLOBIN 14.1 GM/dL (10.7-15.3); LYMPH % 24.6 % (8-40); MCH 34.5 pg (25.7-33.7); MCHC 34.7 g/dl (32.0-36.0); MEAN CELL VOLUME 99.6 fl (80-96); MEAN PLT VOLUME 10.1 fl (7.5-11.1); MONO % 4.3 % (3.8-10.2); NEUT % 70.1 % (42.8-82.8); PLATELET COUNT 202 K/MM3 (134-434); RDW 14.4 % (11.6-15.6); WHITE BLOOD COUNT 10.9 K/mm3 (4.0-10.0)
--- NOTE | 2020-03-15 11:24 | PDOC ---
Attending Attestation - Resident Resident Name: Elisa Cadena - ED Attending Attestation I have performed the following: I have examined & evaluated the patient, The case was reviewed & discussed with the resident, I agree w/resident's findings & plan, Exceptions are as noted - HPI HPI: 03/15/20 11:19 29 yo F h/o DM p/w n/v since this morning. States had half an ecstasy pill last night, felt fine when she woke up this morning and symptoms began after she took a hot bath. Reports 5 episodes of nbnb vomiting. Also reports some lower abdominal cramping. Denies urinary complaints. Thinks she might start to have diarrhea. - Physicial Exam PE: 03/15/20 11:21 General: well appearing HEENT: NCAT, mmm Abdomen: soft, nt, no rebound, no guarding - Medical Decision Making 03/15/20 11:22 29 yo F with abdominal cramping and n/v, FS 275 in ED and patient reports she did not take her lantus this morning, possible DKA although more likely symptoms 2/2 drug use vs. gastritis vs. gastroenteritis. No abd tenderness to suggest appy or acute choley. Also doubt pancreatitis. Plan: -labs -pain control -zofran -IVF -reassess, if no DKA and FS improved will d/c with return precautions, recommend PMD f/u and c/w all home meds as previously prescribed, also counseled on dangers of illicit drug use This clinical encounter is taking place during a federal and state health care emergency attributable to the novel Johansen Virus pandemic. The Environmental Officer of the Department of Health and Human Services has declared, pursuant to the Public Health Service Act 319F-3 (42 U.S[place]C. 247d-6d), that a covered persons activities related to medical countermeasures against COVID-19 will be immune from liability under Federal and State law. 03/15/20 12:55 No AG. Patient tolerating PO. Will d/c with return precautions, recommend PMD f/u. Discharge - Discharge Information Problems reviewed: Yes Clinical Impression/Diagnosis: Nausea & vomiting Qualifiers: Vomiting type: unspecified Vomiting Intractability: non-intractable Qualified Code(s): R11.2 - Nausea with vomiting, unspecified Disposition: HOME - Follow up/Referral - Patient Discharge Instructions Patient Printed Discharge Instructions: DI for Substance Use Disorder, DI for Nausea -- Adult, DI for Vomiting -- Adult Additional Instructions: You came to the emergency department because you had nausea and vomiting this morning. We checked labs because we found that your blood sugar was high. They were normal and you are not in DKA. It's likely that you're experiencing nausea and vomiting due to your drug use last night. You should not take any medications that aren't prescribed to you. Make sure you drink plenty of water to stay hydrated. Return to the ED if you aren't able to keep food or water down, develop fever/chills. - Post Discharge Activity
[2020-03-15 12:17] LABS: ALBUMIN 3.7 g/dl (3.4-5.0)
[2020-03-15 12:18] LABS: BLOOD UREA NITROGEN 8.7 mg/dL (7-18)
[2020-03-15 12:20] LABS: CREATININE 0.9 mg/dL (0.55-1.3)
[2020-03-15 12:21] LABS: BILIRUBIN,TOTAL 0.6 mg/dL (0.2-1)
[2020-03-15 12:22] LABS: TOT PROT 7.5 g/dl (6.4-8.2)
[2020-03-15] MEDS ORDERED: INSULIN REGULAR HUMAN 100 UNITS/ML *VIAL SQ ONE (12:44)
[2020-03-15] MEDS ORDERED: INSULIN REGULAR HUMAN 100 UNITS/ML *VIAL ONE (12:48)
[2020-03-15 13:33] VITALS: BP 120/59; PULSE 63; TEMP 98.3
--- NOTE | 2020-03-16 14:42 | EKG ---
Test Reason : Blood Pressure : / mmHG Vent. Rate : 080 BPM Atrial Rate : 080 BPM P-R Int : 212 ms QRS Dur : 084 ms QT Int : 412 ms P-R-T Axes : 069 046 036 degrees QTc Int : 475 ms SINUS RHYTHM WITH SINUS ARRHYTHMIA WITH 1ST DEGREE A-V BLOCK OTHERWISE NORMAL ECG WHEN COMPARED WITH ECG OF 11-APR-2019 01:12, NO SIGNIFICANT CHANGE WAS FOUND Confirmed by MD JOSE, MAN ([id number]) on 03/16/2020 2:42:37 PM Referred By: Confirmed By:MAN GARCIA MD
== END 2020-03-15 13:33 | disposition home or self-care (01) ==
LOC: JER 09:31
PROC: 3E033NZ Introduction of Analgesics, Hypnotics, Sedatives into Peripheral Vein, Percutaneous Approach (ICD-10-PCS; principal; 2020-03-15)
PROC: 3E033GC Introduction of Other Therapeutic Substance into Peripheral Vein, Percutaneous Approach (ICD-10-PCS; 2020-03-15)
DX: R11.2 Nausea with vomiting, unspecified (principal)
CPT/HCPCS: 36415; 80053; 82010; 82962; 83690; 84703; 85025; 93005; 93010; 99285-25

== ENCOUNTER 2020-03-16 11:42 | Emergency (ER) | payer OTHER ==
[2020-03-16 11:51] VITALS: BP 100/58; PULSE 92; TEMP 97; BMI 28.2
--- OUTSIDE RECORDS SUMMARY | 2020-03-16 12:03 | XMS ---
:1990 Author Organization [facility] Care Team Providers Name Role Phone Aszalos, [...] is protected by Article 27-F of the [facility] Public Health law. If you continue you may haveaccess to information: Regarding HIV / AIDS; Provided by facilities licensed or operated by the [facility] Office of Mental Health; or Provided by the [facility] Office for People With Developmental Disabilities. If such information is present, then the following [facility] mandated warning applies: This information has [...] law may result in a fine or detention sentence or both. A general authorization for the release of medical or other information is NOT sufficient authorization for further disclosure. Encounters Encounter Providers Location Date Indications Data Source(s ) Emergency Admitter: RAJAN Grace 03/17/2019 [place] 06:04:00 AM EDT Medical C enter - 03/17/2019 09:08:00 PM EDT Patient discharged. [facility] 03/02/2019 12:00:00 e CW3 ([facility] A28 AM EDT - 03/02/2019 [facility] 12:00:00 AM EDT Care) [facility] 02/23/2019 12:00:00 e CW3 ([facility] A28 AM EDT - 02/23/2019 [facility] 12:00:00 AM EDT Care) [facility] 02/22/2019 12:00:00 e CW3 ([facility] A28 AM EDT - 02/22/2019 [facility] 12:00:00 AM EDT Care) Inpatient Attender: Allyson Grace-HAL5 02/13/2019 10:10:00 [place] Salinasdmitter: AM EDT - 02/15/2019 [facility] [place] Allyson 03:30:00 PM EDT AszayanirasReferrer: Allyson Vega Patient discharged. Insurance Providers Payer name Policy type / Policy ID Covered Covered alliance party's Policy Plan Coverage type alliance party ID relationship to Waters Information waters REMY [id number] SP [id number] 000 [facility] NON [facility] MEDICAID [id number] [facility] [id number] 01 [id number] [facility] [id number] 01 [id number] 50 [place] W [id number] Remy Commercial [id number] 1 [id number] Medicare REMY CARE W [id number] 01 [id number] 50 [place] REMY CARE W 01 [place] REMY CARE W [id number] 01 [id number] 50 [place] [id number] 01 [id number] 01 [id number] 000 M [id number] 01 [id number] 01 [id number] REMY W [id number] 01 [id number] 000 REMY W [id number] 01 [id number] 000 "" W [id number] 01 [id number] 000 REMY CARE W [id number] 01 [id number] [place] REMY W [id number] 01 [id number] 000 W [id number] 01 [id number] REMY W [id number] 01 [id number] 000 Problems, Conditions, and Diagnoses Code Display Name Description Problem Type Effective Data Sour ce(s) Dates E11.9 Type 2 diabetes TYPE 2 DIABETES Diagnosis 03/17/2019 Richard Lester mellitus without MELLITUS WITHOUT 06:04:00 AM [facility] complications COMPLICATIONS EDT Z3A.10 10 weeks gestation [...] general adult ADULT MEDICAL EXAM 06:04:00 AM [facility] medical examination W/O ABNORMAL EDT without abnormal FINDINGS findings E10.65 Type 1 diabetes TYPE 1 DIABETES Diagnosis 02/15/2019 Richard Lester mellitus with MELLITUS WITH 03:30:00 PM Medical Center hyperglycemia HYPERGLYCEMIA EDT Z79.4 [employer] (current) JAIL Diagnosis 02/15/2019 [place] use of insulin (CURRENT) USE OF 03:30:00 PM Med ical Center INSULIN EDT Z3A.01 Less than 8 weeks LESS THAN 8 WEEKS Diagnosis 02/15/2019 [facility] gestation of GESTATION OF 03:30:00 PM Medical C enter EDT O21.0 Mild hyperemesis MILD HYPEREMESIS Diagnosis 02/13/2019 [facility] gravidarum GRAVIDARUM 10:10:00 AM Medical Cente r EDT Results ID Date Data Source [id number] 09/16/2019 10:15:00 AM EDT [facility] Name Value Range Interpretation Description Data Sup porting Code Source(s) Document(s ) SARS [facility] Coronavirus 2 RNA Presence Respiratory Specimen PARAM Probe Detection This lab was ordered by [facility] and rep orted by [facility]. ID Date Data Source Liver 03/17/2019 06:45:00 AM EDT [facility] Profile.[id number] Name Value Range Interpretation Description Data Sup [...] s"> (3.5-5.0 G/DL)</content> ID Date Data Source HematologyRou.[id number] 03/17/2019 06:45:00 AM EDT [facility] 0400 Name Value Range Interpretation Description [...] (0.0 KCUMM)</content > ID Date Data Source GFR(Creatinine).[id number] 03/17/2019 06:45:00 AM EDT [facility] 0-0400 Name Value Range Interpretation Code Description Data Meche rce(s) Supporting Document(s ) UNK > 60 <content [facility] styleCode="Bold"> Medical Cent er EGFR </content>152 GFR<content styleCode="Italic s"> (> 60 GFR)</content> ID Date Data Source CHMROUTINECCDA.[id number] 03/17/2019 06:45:00 AM EDT [facility] -0400 Name Value Range Interpretation Description Data Sup porting Code Source(s) Document(s ) UNK NEGATIVE <content [facility] styleCode="Bold Medical ">Acetone Center </content>SMALL <content styleCode="Ital ics"> (NEGATIVE )</content> Lipase 23-300 <content [facility] [Enzymatic styleCode="Bold Medical activity/v ">Lipase Center olume] in </content>255 Serum or IU/L<content Plasma styleCode="Ital ics"> (23-300 IU/L)</content> ID Date Data Source [facility].[id number] 03/17/2019 06:45:[address] [facility] Name Value Range Interpretation Description Data Sup porting Code Source(s) Document(s ) Potassium 3.5-5.3 <content [facility] [Moles/volume] in styleCode="Bold"> [facility] Serum or Plasma Potassium Medical </content>4.0 Center [...] GFR)</content> Alkaline 38-126 <content Saint phosphatase styleCode="Bold"> [facility] [Enzymatic Alkaline Medical activity/volume] Phosphatase (ALP) [...] s"> (3.5-5.0 G/DL)</content> ID Date Data Source Urinalysis.[id number] 03/17/2019 06:38:00 AM EDT [facility] 0 Name Value Range Interpretation Description Data Sup porting Code Source(s) Document(s ) Color of Urine YELLOW <content Saint styleCode="Paulina Hintons d">Color, Medical Urine Center </content>YELL OW <content styleCode="Josette lics"> (YELLOW )</content> UNK CLEAR <content Saint styleCode="Paulina Hintons d">Urine Medical Clarity Center </content>CHRISSY R <content styleCode="Josette lics"> (CLEAR )</content> Ketones NEGATIVE <content [facility] [Mass/volume] styleCode="Paulina Lester in Urine by d">Urine Medical Test strip Ketone Center </content>>=80 MG/DL<content styleCode="Josette lics"> (NEGATIVE MG/DL)</conten t> Hemoglobin NEGATIVE <content Saint [Presence] in styleCode="Paulina [place] Urine by Test d">Urine Blood Medical strip </content>SMAL Center L <content styleCode="Josette lics"> (NEGATIVE )</content> Specific 1.015-1.02 <content Saint gravity of 5 styleCode="Paulina [place] Urine by Test d">Urine Medical strip Specific [facility] [place] </content>1.02 5 <content styleCode="Josette lics"> (1.015-1.025 )</content> [...] lics"> (0-3 HPF)</content> ID Date Data Source Hormones.[id number] 02/15/2019 06:10:00 AM EDT [facility] Name Value Range Interpretation Description Data Sup [...] (0.465-4.68 MIU/L)</conten t> ID Date Data Source HematologyRou.[id number] 02/15/2019 06:10:00 AM EDT [facility] 0400 Name Value Range Interpretation Description Data Sup porting Code Source(s) Document(s ) Hemoglobin 12.3-16. <content [facility] [Mass/volume] in 0 styleCode="Bold [place] Blood ">Hemoglobin Medical </content>12.3 Center G/DL<content styleCode="Ital [...] (0.0 KCUMM)</content > ID Date Data Source GFR(Creatinine).[id number] 02/15/2019 06:10:00 AM EDT [facility] 0-0400 Name Value Range Interpretation Code Description Data Meche rce(s) Supporting Document(s ) UNK > 60 <content [facility] styleCode="Bold"> Medical Cent er EGFR </content>127 GFR<content styleCode="Italic s"> (> 60 GFR)</content> ID Date Data Source BMP.[id number] 02/15/2019 06:10:[address] [facility] Name Value Range Interpretation Description Data [...] or Dioxide Center Plasma </content>19 MEQ/L L<content styleCode="Ojsette lics"> (22-30 MEQ/L)</conten t> Chloride 98-107 <content [...] Hintons in Serum or d">Glucose Medical Plasma </content>194 Center MG/DL H<content styleCode="Josette lics"> (74-106 MG/DL)</conten t> Calcium 8.4-10.2 <content Saint [Mass/volume] styleCode="Paulina Hintons in Serum or d">Calcium Medical Plasma </content>9.4 Center MG/DL<content styleCode="Josette lics"> (8.4-10.2 MG/DL)</conten t> UNK > 60 <content Saint styleCode="Paulina Hintons d">EGFR Medical </content>127 Center GFR<content styleCode="Josette lics"> (> 60 GFR)</content> ID Date Data Source Urinalysis.[id number] 02/14/2019 08:20:00 PM EDT [facility] 0 Name Value Range Interpretation Description Data Sup porting Code Source(s) Document(s ) Color of Urine YELLOW <content [facility] styleCode="Paulina Hintons d">Color, Medical Urine Center </content>YELL OW <content styleCode="Josette lics"> (YELLOW )</content> Specific 1.015-1.02 <content [facility] gravity of 5 styleCode="Paulina Lester Urine by Test d">Urine Medical strip Specific [facility] [place] </content>1.01 5 <content styleCode="Josette lics"> (1.015-1.025 )</content> [...] )</content> Ketones NEGATIVE <content [facility] [Mass/volume] styleCode="Paulina Hintons [...] )</content> Protein NEGATIVE <content [facility] [Mass/volume] styleCode="Paulina Hintons in [...] lics"> (NEGATIVE )</content> ID Date Data Source [id number] 02/14/2019 01:07:00 PM EDT [facility] -0400 Name Value Range Interpretation Description Data Sup porting Code Source(s) Document(s ) Lactate 0.7-2.0 Below low normal <content [facility] [Mass/volum styleCode="Bold Medical e] in Serum ">Lactic Acid Center or Plasma </content>0.6 MMOLL L<content styleCode="Ital ics"> (0.7-2.0 MMOLL)</content > ID Date Data Source HematologyRou.[id number] 02/14/2019 05:40:00 AM EDT [facility] 0400 Name Value Range Interpretation Description Data [...] Basophils 0.0-1.0 <content Saint [#/volume] in styleCode="Bold [facility] Blood by ">Basophil Medical Automated count [...] (< 1 %)</content> ID Date Data Source GFR(Creatinine).[id number] 02/14/2019 05:40:00 AM EDT [facility] 0-0400 Name Value Range Interpretation Code Description Data Meche rce(s) Supporting Document(s ) UNK > 60 <content [facility] styleCode="Bold"> Medical Cent er EGFR </content>152 GFR<content styleCode="Italic s"> (> 60 GFR)</content> ID Date Data Source Coagulation 02/14/2019 05:40:00 AM [facility] Rout.[id number] EDT Name Value Range Interpretation Description Data [...] cs"> (0.80-1.20 #)</content> ID Date Data Source ZACHERY.[id number] 02/14/2019 05:40:00 AM EDT [facility] -0400 Name Value Range Interpretation Description Data [...] (2.5-4.5 MG/DL)</conten t> ID Date Data Source [facility].[id number] 02/14/2019 05:40:00 AM EDT [facility] Center Name Value Range Interpretation Description [...] 60 <content Saint styleCode="Paulina Hintons d">EGFR Medical </content>152 Center GFR<content styleCode="Josette lics"> (> 60 GFR)</content> Glucose 74-106 Above high normal <content [facility] [Mass/volume] styleCode="Paulina [place]ler in Serum or d">Glucose Medical Plasma </content>195 Center MG/DL H<content styleCode="Josette lics"> (74-106 MG/DL)</conten t> Calcium 8.4-10.2 <content [facility] [Mass/volume] styleCode="Paulina Tayler in Serum or d">Calcium Medical Plasma </content>9.8 Center MG/DL<content styleCode="Josette lics"> (8.4-10.2 MG/DL)</conten t> ID Date Data Source GFR(Creatinine).[id number] 02/13/2019 09:00:00 PM EDT [facility] 0-0400 Name Value Range Interpretation Code Description Data Meche rce(s) Supporting Document(s ) UNK > 60 <content [facility] styleCode="Bold"> Medical Cent er EGFR </content>152 GFR<content styleCode="Italic s"> (> 60 GFR)</content> ID Date Data Source CHMROUTINECCDA.[id number] 02/13/2019 09:00:00 PM EDT [facility] -0400 Name Value Range Interpretation Code Description Data Meche rce(s) Supporting Document(s ) UNK 0.7-2.0 Above upper panic <content [facility] s limits styleCode="Bold" Medical Cente r >Lactic Acid 4hr </content><marisela nt styleCode="Bold" >2.8 MMOLL HH</content><con tent styleCode="Itali cs"> (0.7-2.0 MMOLL)</content> ID Date Data Source BMP.[id number] 02/13/2019 09:00:[address] [facility] Name Value Range Interpretation Description Data Sup porting Code Source(s) Document(s ) Chloride 98-107 <content [facility] [Moles/volume] styleCode="Paulina Tayler in Serum or d">Chloride Medical Plasma </content>107 Center MEQ/L<content styleCode="Josette lics"> (98-107 MEQ/L)</conten t> Sodium 137-145 <content [facility] [Moles/volume] styleCode="Paulina Tayler in Serum or d">Sodium Medical Plasma </content>137 Center MEQ/L<content styleCode="Josette lics"> (137-145 MEQ/L)</conten t> Potassium 3.5-5.3 <content [facility] [Moles/volume] styleCode="Paulina Tayler in Serum or d">Potassium Medical Plasma </content>4.9 Center MEQ/L<content styleCode="Josette lics"> (3.5-5.3 MEQ/L)</conten t> Glucose 74-106 Above high normal <content [facility] [Mass/volume] styleCode="Paulina Tayler in Serum or d">Glucose Medical Plasma </content>247 [...] (> 60 GFR)</content> ID Date Data Source ZACHERY.[id number] 02/13/2019 02:06:00 PM EDT [facility] -0400 Name Value Range Interpretation Description Data Sup porting Code Source(s) Document(s ) Lactate 0.7-2.0 Above upper panic <content [facility]se[facility] s [Mass/volum limits styleCode="Bold Medical e] in Serum ">Lactic Acid Center or Plasma </content><cont ent styleCode="Bold ">3.4 MMOLL HH</content><co ntent styleCode="Ital ics"> (0.7-2.0 MMOLL)</content > ID Date Data Source Urinalysis.[id number] 02/13/2019 11:05:00 AM EDT [facility] 0 Name Value Range Interpretation Description [...] normal <content [facility] gravity of 5 styleCode="Paulina Hintons Urine by Test d">Urine Medical strip Specific [facility] [place] </content>1.01 0 L<content styleCode="Josette lics"> (1.015-1.025 )</content> Urobilinogen 0.2-1.0 <content [facility] [Units/volume] styleCode="Paulina Hintons in Urine by d">Urine Medical Test strip Urobilinogen Center </content>0.2 MG/DL<content styleCode="Josette lics"> (0.2-1.0 MG/DL)</conten t> Protein NEGATIVE <content [facility] [Mass/volume] styleCode="Paulina Hintons in Urine by d">Urine Medical Test strip Protein Center </content>NEGA TIVE MG/DL<content styleCode="Josette lics"> (NEGATIVE MG/DL)</conten t> pH of Urine by 4.5-8.0 <content Saint Test strip styleCode="Paulina Hintons d">Urine pH Medical </content>6.0 Center <content styleCode="Josette lics"> (4.5-8.0 )</content> Hemoglobin NEGATIVE <content [facility] [Presence] in styleCode="Paulina Hintons Urine by Test d">Urine Blood Medical strip </content>NEGA Center TIVE <content styleCode="Josette lics"> (NEGATIVE )</content> UNK <content [facility] styleCode="Paulina Tayler d">Epithelial Medical Cell Center </content>2-5 LPF (Reference Range: not available)<br/ > Nitrite NEGATIVE <content [facility] [Presence] in styleCode="Paulina Hintons Urine by Test d">Urine Medical strip Nitrite [...] Data Source Liver 02/13/2019 11:05:00 AM EDT [facility] Profile.[id number] Name Value Range Interpretation Description Data Sup [...] s"> (0.0-0.3 MG/DL)</content> ID Date Data Source HematologyRou.[id number] 02/13/2019 11:05:00 AM EDT [facility] Name Value Range Interpretation Description [...] (0.0 KCUMM)</content > ID Date Data Source GFR(Creatinine).[id number] 02/13/2019 11:05:00 AM EDT [facility] 0-0400 Name Value Range Interpretation Code Description Data Meche rce(s) Supporting Document(s ) UNK > 60 <content [facility] styleCode="Bold"> Medical Cent er EGFR </content>127 GFR<content styleCode="Italic s"> (> 60 GFR)</content> ID Date Data Source CHMROUTINECCDA.[id number] 02/13/2019 11:05:00 AM EDT [facility] -0400 Name Value Range Interpretation Description Data Sup porting Code Source(s) Document(s ) Lipase 23-300 <content [facility] [Enzymatic styleCode="Bold Medical activity/vo ">Lipase Center lume] in </content>231 Serum or IU/L<content Plasma styleCode="Ital ics"> (23-300 IU/L)</content> UNK 30-110 <content [facility] styleCode="Bold Medical ">Amylase Center </content>74 IU/L<content styleCode="Ital ics"> (30-110 IU/L)</content> Lactate 0.7-2.0 Above upper panic <content [facility] s [Mass/volum limits styleCode="Bold Medical e] in Serum ">Lactic Acid Center or Plasma </content><cont ent styleCode="Bold ">2.1 MMOLL HH</content><co ntent styleCode="Ital ics"> (0.7-2.0 MMOLL)</content > ID Date Data Source [facility].[id number] 02/13/2019 11:05:[address] [facility] Name Value Range Interpretation Description Data [...] Smoker eCW3 ([place] [facility] 12:00:00 AM EDT [facility]) Smoking 03/02/2019 Never Smoker completed Never Smoker eCW3 ([place] 12:00:00 AM [facility]) Smoking 03/02/2019 Never Smoker completed Never Smoker eCW3 ([place] [facility] 12:[facility]:00 AM [facility]) Smoking 02/14/2019 Former Smoker completed Former Smoker [...] Interpretation Code Description Data Source(s) Body temperature 36.453561 36.008947 [facility] Respiratory rate 17 /min 17 /min [facility] Oxygen saturation 99 % 99 % [facility] blood [facility] by Pulse oximetry Heart rate 82 /min 82 /min [facility] Diastolic blood 84 mm[Hg] 84 mm[Hg] [facility] Systolic blood 132 mm[Hg] 132 mm[Hg] [facility] Body temperature 36.667478 36.358793 [facility] Respiratory rate 19 /min 19 /min [facility] Heart rate 96 /min 96 /min [facility] Diastolic blood 80 mm[Hg] 80 mm[Hg] [facility] Systolic blood 140 mm[Hg] 140 mm[Hg] [facility] Body temperature 36.207174 36.659823 [facility] Respiratory rate 17 /min 17 /min [facility] Oxygen saturation 99 % 99 % [facility] by Pulse oximetry Heart rate 83 /min 83 /min [facility] Diastolic blood 77 mm[Hg] 77 mm[Hg] [facility] Center Systolic blood 132 mm[Hg] 132 mm[Hg] [facility] Body weight 88.386451 kg 88.198545 kg [facility] Measured [facility] Body temperature 37.257864 37.571269 [facility] Respiratory rate 16 /min 16 /min [facility] Oxygen saturation 99 % 99 % [facility] Patricia matamoros in Arterial blood [facility] by Pulse oximetry Heart rate 83 /min 83 /min [facility] Body height 167.057243 167.231091 cm [facility] Medical Center Diastolic blood 66 mm[Hg] 66 mm[Hg] [facility] Center Systolic blood 133 mm[Hg] 133 mm[Hg] [facility] Body mass index 31.4 kg/m2 31.4 kg/m2 [facility] (BMI) [Ratio] Medical Ricky ter Diastolic blood 77 mm[Hg] 77 mm[Hg] eCW3 ([facility]) Systolic blood 117 mm[Hg] 117 mm[Hg] eCW3 ([facility]) Body temperature 98.3 [degF] 98.3 [degF] eCW3 ( [facility]) Heart rate 20 /min 20 /min eCW3 ([facility]) Body mass index 32.283 kg/m2 32.283 kg/m2 eCW3 ([place] (BMI) [Ratio] [facility]) Body weight 194 [lb_av] 194 [lb_av] eCW3 ([facility]) Body height 65 [in_i] 65 [in_i] eCW3 ([facility]) Systolic blood 119 mm[Hg] 119 mm[Hg] [facility] Body temperature 36.395264 36.691366 [facility] Respiratory rate 16 /min 16 /min [facility] Heart rate 85 /min 85 /min [facility] Diastolic blood 78 mm[Hg] 78 mm[Hg] [facility] Center Body temperature 37.371761 37.128529 [facility] Respiratory rate 20 /min 20 /min [facility] Heart rate 82 /min 82 /min [facility] Diastolic blood 70 mm[Hg] 70 mm[Hg] [facility] Center Systolic blood 120 mm[Hg] 120 mm[Hg] [facility] Medical [place] Body temperature 36.123854 36.544714 [facility] Respiratory rate 18 /min 18 /min [facility] Heart rate 86 /min 86 /min [facility] Diastolic blood 78 mm[Hg] 78 mm[Hg] [facility] Center Systolic blood 128 mm[Hg] 128 mm[Hg] [facility] [place] Body temperature 36.223229 36.989386 [facility] Respiratory rate 16 /min 16 /min [facility] Heart rate 94 /min 94 /min [facility] Diastolic blood 81 mm[Hg] 81 mm[Hg] [facility] [place] Systolic blood 129 mm[Hg] 129 mm[Hg] [facility] Body temperature 36.503093 36.287711 [facility] Respiratory rate 18 /min 18 /min [facility] Heart rate 96 /min 96 /min [facility] Diastolic blood 74 mm[Hg] 74 mm[Hg] [facility] [place] Systolic blood 116 mm[Hg] 116 mm[Hg] [facility] Body temperature 36.267718 36.189588 [facility] Respiratory rate 18 /min 18 /min [facility] Heart rate 90 /min 90 /min [facility] Diastolic blood 88 mm[Hg] 88 mm[Hg] [facility] [place] Systolic blood 130 mm[Hg] 130 mm[Hg] [facility] Oxygen saturation 99 % 99 % [facility] Arterial blood Medical Center by Pulse oximetry Body temperature 36.229436 36.753301 [facility] Respiratory rate 19 /min 19 /min [facility] Heart rate 90 /min 90 /min [facility] Diastolic blood 83 mm[Hg] 83 mm[Hg] [facility] [place] Systolic blood 145 mm[Hg] 145 mm[Hg] [facility] [place] Oxygen saturation 100 % 100 % [facility] in Arterial blood Medical Center by Pulse oximetry Body temperature 37.414651 37.071767 [facility] Respiratory rate 18 /min 18 /min [facility] Heart rate 86 /min 86 /min [facility] Diastolic blood 80 mm[Hg] 80 mm[Hg] [facility] Systolic blood 132 mm[Hg] 132 mm[Hg] [facility] Oxygen saturation 98 % 98 % [facility] Patricia matamoros in Arterial blood [facility] by Pulse oximetry Body temperature 37.234538 37.292321 [facility] Respiratory rate 19 /min 19 /min [facility] Heart rate 89 /min 89 /min [facility] Diastolic blood 81 mm[Hg] 81 mm[Hg] [facility] Systolic blood 152 mm[Hg] 152 mm[Hg] [facility] Oxygen saturation 100 % 100 % [facility] Patricia matamoros in Arterial blood [facility] by Pulse oximetry
--- NOTE | 2020-03-16 12:43 | PDOC ---
History of Present Illness - General Chief Complaint: Pain Stated Complaint: ABD PAIN Time Seen by Provider: 03/16/20 12:41 - History of Present Illness Initial Comments: 03/16/20 13:21 29yo F w/ insulin-dependent DM presents today w/ continued inability to tolerate PO. She was here yesterday for the same cc. Tuesday night she took 1/2 tab of ecstasy. She woke up Tuesday feeling nauseous, tired but unable to sleep, and unable to eat. SHe came here, was given IVF and got basic labs and then got sent home. After getting home she tolerated sips of jose david amelia but no food. She endorses n/v and a feeling resembling acid reflux when she drinks water (but not gingerale). She is back today because she still cannot eat. Denies past instances of this. Endorses smoking 2 blunts/day. Denies hx of GERD except for during her . Past History - Medical History Allergies/Adverse Reactions: Allergies Allergy/AdvReac Type Severity Reaction Status Date / Time Penicillins Allergy Verified 03/16/20 11:51 Home Medications: Ambulatory Orders Insulin (Novolog) [Novolog] 0 units SQ AC PRN 03/16/20 Insulin Glargine,Hum.rec.anlog [Lantus] 15 unit SQ AM 03/16/20 Insulin Glargine,Hum.rec.anlog [Lantus] 25 unit SQ HS 03/16/20 Anemia: No Asthma: No Cancer: No Cardiac Disorders: No CVA: No COPD: No CHF: No Dementia: No Diabetes: Yes (IDDM TYPE 2) GI Disorders: No Disorders: No HTN: No Hypercholesterolemia: No Liver Disease: No Seizures: No Thyroid Disease: No - Surgical History Abdominal Surgery: Yes ([facility] HERNIA bat 5 years old) - Reproductive History Is Patient Now?: No - Immunization History Immunization Up to Date: No - Psycho-Social/Smoking History Smoking Status: No Smoking History: Current every day smoker Have you smoked in the past 12 months: No Number of Cigarettes Smoked Daily: 0 Information on smoking cessation initiated: No - Substance Abuse Hx (Audit-C & DAST Scrn) In the last yr the pt used illegal drug/Rx for NonMed reason: Yes Score: Yes response is considered Positive: 1 Screen Result (Positive result requires Nsg. DAST-10): Positive Review of Systems - Review of Systems Able to Perform ROS?: Yes Constitutional: No: Chills, Fever HEENTM: No: Blurred Vision, Recent change in vision Respiratory: No: Cough, Shortness of Breath Cardiac (ROS): Yes: Lightheadedness. No: Chest Pain, Edema, Palpitations ABD/GI: Yes: Diarrhea, Poor Appetite, Poor Fluid Intake, Vomiting, Abdominal cramping. No: Constipated : No: Burning, Dysuria, Frequency, Hematuria Musculoskeletal: No: Back Pain, Muscle Weakness Integumentary: No: Bruising, Dryness, Rash Neurological: No: Headache, Numbness, Paresthesia, Tingling Endocrine: No: Symptoms Reported Hematologic/Lymphatic: No: Symptoms Reported All Other Systems: Reviewed and Negative *Physical Exam - Vital Signs Last Vital Signs Temp Pulse Resp BP Pulse Ox 97 F L 92 H 18 100/58 L 100 03/16/20 11:48 03/16/20 11:48 03/16/20 11:48 03/16/20 11:48 03/16/20 11:48 - Physical Exam General Appearance: Yes: Nourished, Appropriately Dressed. No: Apparent Distress HEENT: positive: EOMI, Normal ENT Inspection, Normal Voice Neck: positive: Trachea midline, Supple. negative: Tender Respiratory/Chest: positive: Lungs Clear, Normal Breath Sounds. negative: Respiratory Distress Cardiovascular: positive: Regular Rhythm, Regular Rate Gastrointestinal/Abdominal: positive: Normal Bowel Sounds, Tender (epigastric, ttp), Soft Musculoskeletal: positive: Normal Inspection. negative: CVA Tenderness Extremity: positive: Normal Capillary Refill, Normal Inspection, Normal Range of Motion Integumentary: positive: Normal Color, Dry, Warm Neurologic: positive: Fully Oriented, Alert, Motor Strength 5/5 ED Treatment Course - LABORATORY CBC & Chemistry Diagram: 03/16/20 13:10 03/16/20 15:45 Medical Decision Making - Medical Decision Making 03/16/20 13:53 29yo F w/ DM1 presents with continued inability to tolerate PO, epigastric ttp, and 1 episode of vomiting in the ED. hx of DM + inability to tolerate PO + n/v -> will trial reglan (nausea, pro-g astric motility) + pepcid (stomach acid) + LR and reassess. BG is 290s. elevated ketones but no anion gap -> ketones may be from decreaesd oral intake. Chemistry shows elevated Calcium, BUN, and Cr compared to yesterday. could be from dehydration. could be relative JACKY. Urine shows 2+ blood + proteinuria. 03/16/20 14:00 03/16/20 16:44 pt states she feels better. Was trialed on cranberry juice and advised of our suggestion to admit her for ukn source of vomiting. Pt then declared intention to AMA. While waiting for paperwork pt eloped. Discharge - Discharge Information Problems reviewed: Yes Clinical Impression/Diagnosis: Nausea & vomiting Qualifiers: Vomiting type: unspecified Vomiting Intractability: intractable Qualified Code (s): R11.2 - Nausea with vomiting, unspecified Condition: Improved Disposition: ELOPED - Admission No - Follow up/Referral Referrals: Gabriela Mann MD [Primary Care Provider] - - Patient Discharge Instructions - Post Discharge Activity
[2020-03-16] MEDS ORDERED: LACTATED RINGERS SOLUTION 1000 ML INFUS.BAG IV ONE ×2 (13:09→13:51)
[2020-03-16 13:24] LABS: BASO % 0.4 % (0-2.0); EOS % 0.1 % (0-4.5); HEMATOCRIT 45.2 % (32.4-45.2); HEMOGLOBIN 15.6 GM/dL (10.7-15.3); LYMPH % 18.7 % (8-40); MCHC 34.5 g/dl (32.0-36.0); MEAN CELL VOLUME 98.6 fl (80-96); MONO % 3.7 % (3.8-10.2); NEUT % 77.1 % (42.8-82.8); PLATELET COUNT 220 K/MM3 (134-434); RBC 4.58 M/mm3 (3.60-5.2); RDW 14.5 % (11.6-15.6); WHITE BLOOD COUNT 10.2 K/mm3 (4.0-10.0)
[2020-03-16 13:29] LABS: POTASSIUM 5.9 mmol/L (3.5-5.1)
[2020-03-16] MEDS ORDERED: FAMOTIDINE 20 MG/50 ML IVPB 20 MG/50 ML MG IVPB ONE ×2 (13:30→13:53)
[2020-03-16] MEDS ORDERED: METOCLOPRAMIDE HCL INJECTION 10 MG/2 ML VIAL IVPUSH ONE (13:30)
[2020-03-16 13:32] LABS: ALBUMIN 4.1 g/dl (3.4-5.0); CALCIUM 10.3 mg/dL (8.5-10.1)
[2020-03-16 13:33] LABS: BLOOD UREA NITROGEN 14.3 mg/dL (7-18)
[2020-03-16 13:35] LABS: CREATININE 1.2 mg/dL (0.55-1.3)
[2020-03-16] MEDS ORDERED: METOCLOPRAMIDE HCL INJECTION 10 MG/2 ML VIAL ONE (13:48)
[2020-03-16 13:53] LABS: EPI CELLS >36 /uL (0-25.1); HCG,QUALITATIVE URINE Negative; HYALINE CASTS 10 /uL (0-3.1); URINE APPEARANCE CLOUDY; URINE BACTERIA 1411 /uL (0-1359); URINE BILIRUBIN NEGATIVE (NEGATIVE); URINE COLOR YELLOW; URINE GLUCOSE (UA) 3+ (NEGATIVE); URINE KETONE 4+ (NEGATIVE); URINE LEUK ESTERASE NEGATIVE (NEGATIVE); URINE NITRITE NEGATIVE (NEGATIVE); URINE PROTEIN 3+ (NEGATIVE); URINE RBC 28 /uL (0-23.9); URINE UROBILINOGEN 0.2 mg/dL (0.2-1.0); URINE WBC 35 /uL (0-25.8)
[2020-03-16 14:42] LABS: MAGNESIUM 2.1 mg/dL (1.8-2.4)
[2020-03-16 16:19] LABS: VENOUS BASE EXCESS 0.3 mmol/L (-2-2); VENOUS O2 SATURATION 65.3 % (70-80); VENOUS PCO2 42.4 mmHg (38-52); VENOUS PH 7.395 (7.310-7.410)
[2020-03-16 16:26] LABS: POTASSIUM 3.7 mmol/L (3.5-5.1)
[2020-03-16 16:28] LABS: CALCIUM 10.6 mg/dL (8.5-10.1)
[2020-03-16 16:29] LABS: ALBUMIN 4.4 g/dl (3.4-5.0); BLOOD UREA NITROGEN 14.2 mg/dL (7-18); MAGNESIUM 2.2 mg/dL (1.8-2.4)
[2020-03-16 16:32] LABS: CREATININE 1.1 mg/dL (0.55-1.3)
[2020-03-16 16:33] LABS: BILIRUBIN,TOTAL 0.8 mg/dL (0.2-1); TOT PROT 8.9 g/dl (6.4-8.2)
--- NOTE | 2020-03-16 16:50 | PDOC ---
Documentation entered by David Martinez SCRIBE, acting as scribe for Nasreen Hollis MD. Nasreen Hollis MD: This documentation has been prepared by the devinibe, David Martinez SCRIBE, under my direction and personally reviewed by me in its entirety. I confirm that the documentation accurately reflects all work, treatment, procedures, and medical decision making performed by me. Attending Attestation - Resident Resident Name: Twan Hunter - ED Attending Attestation I have performed the following: I have examined & evaluated the patient, The case was reviewed & discussed with the resident, I agree w/resident's findings & plan, Exceptions are as noted - HPI HPI: 03/16/20 13:38 The patient is a 29 year old female with a significant past medical history of IDDM and DKA (two years ago) who presents to the emergency department for evaluation of nausea and vomiting that began yesterday after taking half an ecstasy pill the night before. The patient reports an inability to tolerate any food or drink. She endorses heartburn, epigastric pain, and one episode of diarrhea today. THe patient notes her blood sugar was 198 this morning. The patient presented to the ED yesterday with the same symptoms when she was given IV fluids and discharged. She notes tolerating jose david amelia after discharge yesterday but not any food or water. The patient denies chest/abdominal/back pain, cough, and shortness of breath. Denies fever, chills,or any symptoms. Denies any other symptoms. Allergies: penicillins Social Hx: The patient reports smoking marijuana (2 blunts per day) and using ecstasy. Denies alcohol consumption. Surgical Hx: None reported PCP: Dr. Mann - Physicial Exam PE: 03/16/20 13:09 "GENERAL: Awake, alert, and fully oriented, in no acute distress HEAD: No signs of trauma EYES: PERRLA, EOMI, sclera anicteric, conjunctiva clear ENT: Auricles normal inspection, hearing grossly normal, nares patent, oropharynx clear without exudates. Moist mucosa NECK: Normal ROM, supple, no lymphadenopathy, JVD, or masses LUNGS: Breath sounds equal, clear to auscultation bilaterally. No wheezes, and no crackles HEART: Regular rate and rhythm, normal S1 and S2, no murmurs, rubs or gallops ABDOMEN: Soft, nontender, normoactive bowel sounds. No guarding, no rebound. No masses EXTREMITIES: Normal range of motion, no edema. No clubbing or cyanosis. No c ords, erythema, or tenderness BACK: No midline spinal tenderness in cervical/thoracic/lumbar region NEUROLOGICAL: Normal speech, cranial nerves intact, negative pronator drift, 5/5 strength in all 4 extremities, normal sensation to light touch in all 4 extremities, normal cerebellar exam, normal gait, normal reflexes and tone SKIN: Warm, Dry, normal turgor, no rashes or lesions noted." Discharge - Discharge Information Clinical Impression/Diagnosis: Nausea & vomiting Qualifiers: Vomiting type: unspecified Vomiting Intractability: intractable Qualified Code(s): R11.2 - Nausea with vomiting, unspecified Condition: Improved Disposition: ELOPED - Follow up/Referral Referrals: Gabriela Mann MD [Primary Care Provider] - - Patient Discharge Instructions - Post Discharge Activity
--- NOTE | 2020-03-17 16:10 | EKG ---
Test Reason : Blood Pressure : / mmHG Vent. Rate : 074 BPM Atrial Rate : 074 BPM P-R Int : 176 ms QRS Dur : 084 ms QT Int : 368 ms P-R-T Axes : 056 061 012 degrees QTc Int : 408 ms NORMAL SINUS RHYTHM WITH SINUS ARRHYTHMIA T WAVE ABNORMALITY, CONSIDER ANTERIOR ISCHEMIA ABNORMAL ECG WHEN COMPARED WITH ECG OF 15-MAR-2020 11:26, T WAVE VARIATION Confirmed by SUMIT OLIVER MD ([id number]) on 03/17/2020 4:09:36 PM Referred By: Confirmed By:SUMIT OLIVER MD
== END 2020-03-16 17:00 | disposition left against medical advice (07) ==
LOC: JER 11:42
PROC: 3E033GC Introduction of Other Therapeutic Substance into Peripheral Vein, Percutaneous Approach (ICD-10-PCS; principal; 2020-03-16)
DX: R11.2 Nausea with vomiting, unspecified (principal)
CPT/HCPCS: 36415; 80053; 81003; 82010; 82803; 83690; 83735; 84100; 84703; 85025; 93005; 93010; 99284-25

== ENCOUNTER 2021-04-13 07:28 | Emergency (ER) | payer OTHER ==
[2021-04-13 07:57] VITALS: BP 170/91; PULSE 91; BMI 28.2
[2021-04-13] MEDS ORDERED: SODIUM CHLORIDE 1,000 ML IV STA (08:34)
[2021-04-13] MEDS ORDERED: ONDANSETRON *ODT* 4 MG TABLET SL ONE (09:52)
[2021-04-13] MEDS ORDERED: KETOROLAC TROMETHAMINE 15 MG/ML VIAL IVPUSH ONE (09:52)
[2021-04-13 09:55] LABS: BASO % 0.9 % (0-2.0); HEMATOCRIT 42.2 % (32.4-45.2); HEMOGLOBIN 14.7 GM/dL (10.7-15.3); LYMPH % 14.2 % (8-40); MCHC 34.8 g/dl (32.0-36.0); MEAN CELL VOLUME 97.6 fl (80-96); MEAN PLT VOLUME 9.3 fl (7.5-11.1); MONO % 3.3 % (3.8-10.2); NEUT % 81.6 % (42.8-82.8); PLATELET COUNT 248 10^3/uL (134-434); RBC 4.33 M/mm3 (3.60-5.2); RDW 13.8 % (11.6-15.6); WHITE BLOOD COUNT 11.1 K/mm3 (4.0-10.0)
[2021-04-13] MEDS ORDERED: ONDANSETRON *ODT* 4 MG TABLET ONE (09:55)
[2021-04-13] MEDS ORDERED: KETOROLAC TROMETHAMINE 15 MG/ML VIAL ONE (09:56)
[2021-04-13 10:04] LABS: HCG,QUALITATIVE URINE NEGATIVE; URINE COLOR YELLOW
[2021-04-13 10:05] LABS: URINE APPEARANCE CLOUDY; URINE BILIRUBIN NEGATIVE (NEGATIVE); URINE GLUCOSE (UA) 4+ (NEGATIVE); URINE KETONE >=80 mg/dl (NEGATIVE)
[2021-04-13 10:06] LABS: EPI CELLS 87.2 /uL (0-25.1); HYALINE CASTS 2.66 /uL (0-3.1); PH,URINE 5.5 (5.0-8.0); URINE LEUK ESTERASE NEGATIVE (NEGATIVE); URINE NITRITE NEGATIVE (NEGATIVE); URINE PROTEIN 3+ (NEGATIVE); URINE RBC 33.2 /uL (0-23.9); URINE UROBILINOGEN 0.2 mg/dL (0.2-1.0); URINE WBC 33.5 /uL (0-25.8)
[2021-04-13 10:07] LABS: URINE BACTERIA 2804.7 /uL (0-1359)
[2021-04-13] MEDS ORDERED: ACETAMINOPHEN 1000 MG/100 ML VIAL IVPB ONE (10:10)
[2021-04-13 10:26] LABS: BLOOD UREA NITROGEN 18.2 mg/dL (7-18)
[2021-04-13 10:27] LABS: ALBUMIN 4.2 g/dl (3.4-5.0); CALCIUM 10.1 mg/dL (8.5-10.1)
[2021-04-13 10:30] LABS: CREATININE 0.9 mg/dL (0.55-1.3)
[2021-04-13 10:32] LABS: BILIRUBIN,TOTAL 0.9 mg/dL (0.2-1); TOT PROT 8.5 g/dl (6.4-8.2)
[2021-04-13 10:49] VITALS: TEMP 99.3
[2021-04-13] MEDS ORDERED: ACETAMINOPHEN INJECTION 100 ML IVPB ONE (10:51)
[2021-04-13] MEDS ORDERED: METOCLOPRAMIDE HCL INJECTION 10 MG/2 ML VIAL IVPUSH ONE (12:04)
[2021-04-13] MEDS ORDERED: METOCLOPRAMIDE HCL INJECTION 10 MG/2 ML VIAL ONE (12:56)
[2021-04-13] MEDS ORDERED: CEFTRIAXONE 1 GM in DEXTROSE 5%-WATER - 100 ML IVPB ONE (13:26)
[2021-04-13] MEDS ORDERED: CEFTRIAXONE 1 GM/50 ML BAG ONE (13:40)
== END 2021-04-13 14:17 | disposition home or self-care (01) ==
LOC: JER 07:28
PROC: 3E033GC Introduction of Other Therapeutic Substance into Peripheral Vein, Percutaneous Approach (ICD-10-PCS; principal; 2021-04-13)
DX: N30.01 Acute cystitis with hematuria (principal); R11.2 Nausea with vomiting, unspecified; R53.83 Other fatigue; E11.9 Type 2 diabetes mellitus without complications
CPT/HCPCS: 36415; 74177-TC; 80053; 81003; 82962; 83690; 84703; 85025; 87077; 87086; 87804; 99285-25; C9803; J0131; Q0162; Q9967; U0003; U0005

== ENCOUNTER 2021-06-02 10:20 | Observation (INO) | payer OTHER ==
[2021-06-02 10:36] VITALS: BMI 28.2
[2021-06-02] MEDS ORDERED: SODIUM CHLORIDE 1,000 ML IV STA (13:03)
[2021-06-02 13:52] LABS: BASO % 0.5 % (0-2.0); HEMATOCRIT 44.2 % (32.4-45.2); HEMOGLOBIN 15.1 GM/dL (10.7-15.3); LYMPH % 13.7 % (8-40); MCH 33.5 pg (25.7-33.7); MCHC 34.1 g/dl (32.0-36.0); MEAN CELL VOLUME 98.1 fl (80-96); MONO % 3.7 % (3.8-10.2); NEUT % 82.1 % (42.8-82.8); RDW 13.6 % (11.6-15.6); WHITE BLOOD COUNT 14.6 K/mm3 (4.0-10.0)
[2021-06-02 13:53] LABS: MEAN PLT VOLUME 9.9 fl (7.5-11.1); PLATELET COUNT 213 10^3/uL (134-434)
[2021-06-02 14:00] LABS: ACTIVATED PTT 20.2 SECONDS (25.2-36.5)
[2021-06-02 14:13] LABS: CALCIUM 9.6 mg/dL (8.5-10.1)
[2021-06-02 14:15] LABS: ALBUMIN 4.1 g/dl (3.4-5.0); BLOOD UREA NITROGEN 13.6 mg/dL (7-18)
[2021-06-02 14:21] LABS: PLATELET ESTIMATE NORMAL
[2021-06-02] MEDS ORDERED: SODIUM CHLORIDE 0.9% 1000 ML INFUS.BAG IV ONE (14:41)
[2021-06-02] MEDS ORDERED: ONDANSETRON 4 MG/2 ML VIAL IVPUSH ONE ×2 (14:43→18:08)
[2021-06-02] MEDS ORDERED: ONDANSETRON 4 MG/2 ML VIAL ONE ×2 (15:03→18:44)
[2021-06-02] MEDS ORDERED: ACETAMINOPHEN INJECTION 100 ML IVPB ONE (15:17)
[2021-06-02] MEDS ORDERED: ACETAMINOPHEN 1000 MG/100 ML BAG IVPB ONE (15:18)
[2021-06-02 15:43] LABS: EPI CELLS 32 /uL (0-25.1); HYALINE CASTS 0 /uL (0-3.1); URINE APPEARANCE CLEAR; URINE BACTERIA 503 /uL (0-1359); URINE BILIRUBIN NEGATIVE (NEGATIVE); URINE COLOR YELLOW; URINE GLUCOSE (UA) 3+ (NEGATIVE); URINE KETONE 3+ (NEGATIVE); URINE LEUK ESTERASE NEGATIVE (NEGATIVE); URINE NITRITE NEGATIVE (NEGATIVE); URINE PROTEIN 1+ (NEGATIVE); URINE RBC 18 /uL (0-23.9); URINE UROBILINOGEN 0.2 mg/dL (0.2-1.0); URINE WBC 16 /uL (0-25.8)
[2021-06-02] MEDS ORDERED: METOCLOPRAMIDE HCL INJECTION 10 MG/2 ML VIAL IVPB ONE (17:34)
[2021-06-02] MEDS ORDERED: INSULIN (LEVEMIR) 100 UNITS/ML UNITS SQ ONE (18:07)
[2021-06-02] MEDS ORDERED: INSULIN (NOVOLOG) ASPART 100 UNITS/ML 10ML VIAL SQ ONE (18:07)
[2021-06-02] MEDS ORDERED: MAG HYDROX/AL HYDROX/SIMETH -MYLANTA- ORAL SUSPENSION PO PRN (18:08)
[2021-06-02] MEDS ORDERED: MAG HYDROX/AL HYDROX/SIMETH 30 ML UNIT-DOSE CUP PO PRN (18:18)
[2021-06-02] MEDS ORDERED: METOCLOPRAMIDE HCL INJECTION 10 MG/2 ML VIAL ONE (18:44)
[2021-06-02] MEDS ORDERED: PANTOPRAZOLE SODIUM 40 MG VIAL ONE (18:44)
[2021-06-02] MEDS: SODIUM CHLORIDE 1,000 ML IV SCH (19:09)
[2021-06-02] MEDS: PANTOPRAZOLE SODIUM 40 MG VIAL IVPUSH SCH (19:09)
[2021-06-03] MEDS: SODIUM CHLORIDE 1,000 ML IV SCH (01:04)
[2021-06-03] MEDS ORDERED: MELATONIN 5 MG TABLETS PO ONE (01:28)
[2021-06-03] MEDS: INSULIN SLIDING SCALE (NOVOLOG) 1 VIAL SQ SCH ×5 (01:35→21:32)
[2021-06-03] MEDS ORDERED: INSULIN (LEVEMIR) 100 UNITS/ML UNITS SQ SCH (07:00)
[2021-06-03] MEDS: PANTOPRAZOLE SODIUM 40 MG VIAL IVPUSH SCH (10:09)
[2021-06-03] MEDS: ENOXAPARIN NA (PORCINE) 40 MG/0.4 ML DISP.SYRIN SQ SCH (10:21)
[2021-06-03 11:38] LABS: HEMATOCRIT 40.2 % (32.4-45.2); HEMOGLOBIN 13.3 GM/dL (10.7-15.3); MCH 32.4 pg (25.7-33.7); MEAN CELL VOLUME 98.2 fl (80-96); MEAN PLT VOLUME 9.5 fl (7.5-11.1); PLATELET COUNT 208 10^3/uL (134-434); RBC 4.09 M/mm3 (3.60-5.2); RDW 13.9 % (11.6-15.6); WHITE BLOOD COUNT 11.5 K/mm3 (4.0-10.0)
[2021-06-03] MEDS ORDERED: INSULIN (NOVOLOG) ASPART 100 UNITS/ML 10ML VIAL ONE ×2 (12:01→17:35)
[2021-06-03 12:16] LABS: ALBUMIN 3.6 g/dl (3.4-5.0); BLOOD UREA NITROGEN 11.1 mg/dL (7-18); MAGNESIUM 2.1 mg/dL (1.8-2.4)
[2021-06-03 12:19] LABS: CREATININE 0.9 mg/dL (0.55-1.3); PHOSPHOROUS 2.6 mg/dL (2.5-4.9)
[2021-06-03 12:21] LABS: BILIRUBIN,TOTAL 1.1 mg/dL (0.2-1); TOT PROT 7.4 g/dl (6.4-8.2)
[2021-06-03] MEDS ORDERED: ONDANSETRON 4 MG/2 ML VIAL IVPUSH PRN (12:40)
[2021-06-03] MEDS ORDERED: LACTATED RINGERS SOLUTION 1,000 ML/1,000 ML INFUS.BAG IV SCH (13:00)
[2021-06-03] MEDS: KCL 10 MEQ IVPB 10 MEQ/100 ML INFUS.BAG IVPB SCH ×2 (15:32→17:28)
[2021-06-03] MEDS: LACTATED RINGERS SOLUTION 1,000 ML/1,000 ML INFUS.BAG IV SCH ×2 (15:34→21:57)
[2021-06-03] MEDS ORDERED: MELATONIN 5 MG TABLETS PO PRN (17:33)
[2021-06-03] MEDS ORDERED: ACETAMINOPHEN 1000 MG/100 ML BAG IVPB PRN (17:33)
[2021-06-03] MEDS: INSULIN (LEVEMIR) 100 UNITS/ML UNITS SQ SCH (21:34)
[2021-06-04] MEDS: INSULIN SLIDING SCALE (NOVOLOG) 1 VIAL SQ SCH ×2 (06:07→12:02)
[2021-06-04] MEDS: INSULIN (LEVEMIR) 100 UNITS/ML UNITS SQ SCH (06:07)
[2021-06-04] MEDS: LACTATED RINGERS SOLUTION 1,000 ML/1,000 ML INFUS.BAG IV SCH (06:08)
[2021-06-04] MEDS: ENOXAPARIN NA (PORCINE) 40 MG/0.4 ML DISP.SYRIN SQ SCH (09:43)
[2021-06-04] MEDS: PANTOPRAZOLE SODIUM 40 MG VIAL IVPUSH SCH (09:43)
[2021-06-04 10:22] LABS: HEMATOCRIT 36.7 % (32.4-45.2); HEMOGLOBIN 12.4 GM/dL (10.7-15.3); MCH 33.1 pg (25.7-33.7); MCHC 33.9 g/dl (32.0-36.0); MEAN CELL VOLUME 97.5 fl (80-96); MEAN PLT VOLUME 9.3 fl (7.5-11.1); PLATELET COUNT 196 10^3/uL (134-434); RBC 3.76 M/mm3 (3.60-5.2); RDW 13.7 % (11.6-15.6); WHITE BLOOD COUNT 7.1 K/mm3 (4.0-10.0)
[2021-06-04 10:37] VITALS: BP 158/84; PULSE 95; TEMP 98.4
[2021-06-04 10:59] LABS: ALBUMIN 3.4 g/dl (3.4-5.0); CALCIUM 8.9 mg/dL (8.5-10.1)
[2021-06-04 11:00] LABS: BLOOD UREA NITROGEN 9.7 mg/dL (7-18); MAGNESIUM 1.9 mg/dL (1.8-2.4)
[2021-06-04 11:02] LABS: CREATININE 0.8 mg/dL (0.55-1.3)
[2021-06-04 11:03] LABS: BILIRUBIN,TOTAL 1.2 mg/dL (0.2-1); PHOSPHOROUS 1.9 mg/dL (2.5-4.9)
[2021-06-04 11:04] LABS: TOT PROT 6.5 g/dl (6.4-8.2)
[2021-06-04] MEDS ORDERED: NAPH,MB-DB/K PH,MBDB POWDER PACKET PO ONE (11:30)
[2021-06-06 19:42] LABS: HIV INTERPRETATION NEGATIVE (NEGATIVE)
== END 2021-06-04 14:11 | disposition home or self-care (01) ==
LOC: JER 10:20 → JERBED 17:34 → J6S 06-03 00:50
PROVIDERS: ADMIT Internal Medicine
PROC: 3E033NZ Introduction of Analgesics, Hypnotics, Sedatives into Peripheral Vein, Percutaneous Approach (ICD-10-PCS; principal; 2021-06-02)
PROC: 3E033GC Introduction of Other Therapeutic Substance into Peripheral Vein, Percutaneous Approach (ICD-10-PCS; 2021-06-02)
PROC: 3E023GC Introduction of Other Therapeutic Substance into Muscle, Percutaneous Approach (ICD-10-PCS; 2021-06-02)
PROC: 3E013VG Introduction of Insulin into Subcutaneous Tissue, Percutaneous Approach (ICD-10-PCS; 2021-06-02)
PROC: 3E0337Z Introduction of Electrolytic and Water Balance Substance into Peripheral Vein, Percutaneous Approach (ICD-10-PCS; 2021-06-02)
DX: E13.10 Other specified diabetes mellitus with ketoacidosis without coma (principal); K42.9 Umbilical hernia without obstruction or gangrene; U09.9 Post COVID-19 condition, unspecified; R82.71 Bacteriuria; D72.829 Elevated white blood cell count, unspecified; K21.9 Gastro-esophageal reflux disease without esophagitis; A08.39 Other viral enteritis; Z29.9 Encounter for prophylactic measures, unspecified; Z88.0 Allergy status to penicillin; F12.90 Cannabis use, unspecified, uncomplicated
CPT/HCPCS: 36415; 71045-TC-FY; 80053; 81003; 82010; 82150; 82962; 83036; 83690; 83735; 84100; 84703; 85025; 85027; 85610; 85730; 86705; 86803; 87086; 87186; 87350; 87389; 87517; 87804; 93005; 93010; 96361; 96365; 96372; 96375; 96376; 99285-25; C9803-CS; G0378; U0003; U0005

== ENCOUNTER 2021-07-22 07:02 | Emergency (ER) | payer OTHER ==
[2021-07-22 08:26] VITALS: PULSE 93; TEMP 97.7; BMI 29.9
[2021-07-22] MEDS ORDERED: PANTOPRAZOLE SODIUM 40 MG VIAL IVPB ONE (08:38)
[2021-07-22] MEDS ORDERED: SODIUM CHLORIDE 1,000 ML IV STA (08:38)
[2021-07-22] MEDS ORDERED: ACETAMINOPHEN 1000 MG/100 ML BAG IVPB ONE (08:38)
[2021-07-22] MEDS ORDERED: ONDANSETRON 4 MG/2 ML VIAL IVPUSH ONE (08:38)
[2021-07-22] MEDS ORDERED: MAG HYDROX/AL HYDROX/SIMETH 30 ML UNIT-DOSE CUP PO ONE (08:39)
[2021-07-22] MEDS ORDERED: MAG HYDROX/AL HYDROX/SIMETH 30 ML UNIT-DOSE CUP ONE (08:45)
[2021-07-22] MEDS ORDERED: ACETAMINOPHEN INJECTION 100 ML IVPB ONE (08:45)
[2021-07-22] MEDS ORDERED: ONDANSETRON 4 MG/2 ML VIAL ONE (08:46)
[2021-07-22] MEDS ORDERED: PANTOPRAZOLE SODIUM 40 MG VIAL ONE (08:46)
[2021-07-22 09:44] LABS: BASO % 0.3 % (0-2.0); HEMATOCRIT 44.4 % (32.4-45.2); HEMOGLOBIN 15.2 GM/dL (10.7-15.3); LYMPH % 14.7 % (8-40); MCH 34.1 pg (25.7-33.7); MCHC 34.3 g/dl (32.0-36.0); MEAN CELL VOLUME 99.4 fl (80-96); MEAN PLT VOLUME 8.7 fl (7.5-11.1); MONO % 3.5 % (3.8-10.2); NEUT % 81.5 % (42.8-82.8); PLATELET COUNT 186 10^3/uL (134-434); RBC 4.46 M/mm3 (3.60-5.2); RDW 13.5 % (11.6-15.6); WHITE BLOOD COUNT 6.6 K/mm3 (4.0-10.0)
[2021-07-22 10:03] LABS: INR 1.06 (0.83-1.09); PROTHROMBIN TIME (PATIENT) 12.2 SEC (9.7-13.0)
[2021-07-22 10:08] LABS: CALCIUM 10.2 mg/dL (8.5-10.1)
[2021-07-22 10:09] LABS: ALBUMIN 4.3 g/dl (3.4-5.0); BLOOD UREA NITROGEN 13.3 mg/dL (7-18); MAGNESIUM 2.1 mg/dL (1.8-2.4)
[2021-07-22 10:12] LABS: CREATININE 0.9 mg/dL (0.55-1.3); PHOSPHOROUS 3.7 mg/dL (2.5-4.9)
[2021-07-22 10:13] LABS: BILIRUBIN,TOTAL 0.8 mg/dL (0.2-1); TOT PROT 8.3 g/dl (6.4-8.2)
[2021-07-22] MEDS ORDERED: METOCLOPRAMIDE HCL INJECTION 10 MG/2 ML VIAL IVPUSH ONE (10:21)
[2021-07-22] MEDS ORDERED: SODIUM CHLORIDE 0.9% 500 ML INFUS.BAG IV ONE (10:25)
[2021-07-22] MEDS ORDERED: METOCLOPRAMIDE HCL INJECTION 10 MG/2 ML VIAL ONE (10:49)
[2021-07-22] MEDS ORDERED: KETOROLAC TROMETHAMINE 30 MG/1 ML VIAL IVPUSH ONE (10:56)
[2021-07-22] MEDS ORDERED: KETOROLAC TROMETHAMINE 30 MG/1 ML VIAL ONE (10:57)
[2021-07-22 11:38] LABS: EPI CELLS >36 /uL (0-25.1); HYALINE CASTS 3 /uL (0-3.1); PH,URINE 5.5 (5.0-8.0); URINE APPEARANCE CLOUDY; URINE BACTERIA 5011 /uL (0-1359); URINE BILIRUBIN NEGATIVE (NEGATIVE); URINE COLOR YELLOW; URINE GLUCOSE (UA) 3+ (NEGATIVE); URINE KETONE 3+ (NEGATIVE); URINE LEUK ESTERASE NEGATIVE (NEGATIVE); URINE NITRITE NEGATIVE (NEGATIVE); URINE PROTEIN 3+ (NEGATIVE); URINE RBC 13 /uL (0-23.9); URINE UROBILINOGEN 0.2 mg/dL (0.2-1.0)
[2021-07-22 11:39] LABS: HCG,QUALITATIVE URINE Negative
[2021-07-22] MEDS ORDERED: LORazepam 2 MG/ML SDV VIAL IVPUSH ONE (11:44)
[2021-07-22] MEDS ORDERED: HALOPERIDOL LACTATE 5 MG/ML IV ONE (11:55)
[2021-07-22 13:16] LABS: VENOUS BASE EXCESS -5.6 mmol/L (-2-2); VENOUS PH 7.354 (7.310-7.410)
[2021-07-22 14:03] VITALS: BP 156/86
== END 2021-07-22 14:45 | disposition home or self-care (01) ==
LOC: JER 07:02
PROC: 3E0333Z Introduction of Anti-inflammatory into Peripheral Vein, Percutaneous Approach (ICD-10-PCS; principal; 2021-07-22)
PROC: 3E0333Z Introduction of Anti-inflammatory into Peripheral Vein, Percutaneous Approach (ICD-10-PCS; 2021-07-22)
PROC: 3E033GC Introduction of Other Therapeutic Substance into Peripheral Vein, Percutaneous Approach (ICD-10-PCS; 2021-07-22)
PROC: 3E033GC Introduction of Other Therapeutic Substance into Peripheral Vein, Percutaneous Approach (ICD-10-PCS; 2021-07-22)
PROC: 3E0337Z Introduction of Electrolytic and Water Balance Substance into Peripheral Vein, Percutaneous Approach (ICD-10-PCS; 2021-07-22)
DX: F12.288 Cannabis dependence with other cannabis-induced disorder (principal); E10.9 Type 1 diabetes mellitus without complications
CPT/HCPCS: 36415; 80053; 81003; 82010; 82803; 83690; 83735; 84100; 84703; 85025; 85610; 85730; 87086; 87186; 93005; 93010; 99284-25; C9803; U0003; U0005

== ENCOUNTER 2021-08-07 05:58 | Emergency (ER) | payer OTHER ==
[2021-08-07 06:09] VITALS: TEMP 98.3; BMI 31.6
[2021-08-07] MEDS ORDERED: ACETAMINOPHEN 1000 MG/100 ML BAG IVPB ONE (07:22)
[2021-08-07] MEDS ORDERED: ONDANSETRON 4 MG/2 ML VIAL IVPUSH ONE (07:22)
[2021-08-07] MEDS ORDERED: SODIUM CHLORIDE 0.9% 500 ML INFUS.BAG IV ONE ×2 (07:39→10:56)
[2021-08-07] MEDS ORDERED: ACETAMINOPHEN INJECTION 100 ML IVPB ONE (08:12)
[2021-08-07] MEDS ORDERED: ONDANSETRON 4 MG/2 ML VIAL ONE (08:12)
[2021-08-07 09:29] LABS: VENOUS BASE EXCESS -6.2 mmol/L (-2-2); VENOUS O2 SATURATION 96.8 % (70-80); VENOUS PCO2 31.4 mmHg (38-52); VENOUS PH 7.37 (7.310-7.410)
[2021-08-07 09:41] LABS: BASO % 0.5 % (0-2.0); HEMATOCRIT 41.3 % (32.4-45.2); HEMOGLOBIN 14.3 GM/dL (10.7-15.3); LYMPH % 9.9 % (8-40); MCH 34.2 pg (25.7-33.7); MCHC 34.7 g/dl (32.0-36.0); MEAN CELL VOLUME 98.3 fl (80-96); MEAN PLT VOLUME 9.2 fl (7.5-11.1); MONO % 5.2 % (3.8-10.2); NEUT % 84.4 % (42.8-82.8); PLATELET COUNT 203 10^3/uL (134-434); RDW 13.5 % (11.6-15.6)
[2021-08-07 09:53] LABS: CHLORIDE 99 mmol/L (98-107); SODIUM 134 mmol/L (136-145)
[2021-08-07 09:56] LABS: ANION GAP 14 MMOL/L (8-16); BLOOD UREA NITROGEN 16.2 mg/dL (7-18); CO2 21 mmol/L (21-32); GLUCOSE,RANDOM 334 mg/dL (74-106); LIPASE 131 U/L (73-393)
[2021-08-07 09:58] LABS: SGPT/ALT 38 U/L (13-61)
[2021-08-07 09:59] LABS: CREATININE 1.1 mg/dL (0.55-1.3); SGOT/AST 33 U/L (15-37)
[2021-08-07 10:00] LABS: BILIRUBIN,TOTAL 0.7 mg/dL (0.2-1); TOT PROT 8.1 g/dl (6.4-8.2)
[2021-08-07 10:01] LABS: ALK PHOS 92 U/L (45-117)
[2021-08-07 10:48] LABS: EPI CELLS >36 /uL (0-25.1); HYALINE CASTS 2 /uL (0-3.1); URINE APPEARANCE CLOUDY; URINE BACTERIA 2465 /uL (0-1359); URINE BILIRUBIN NEGATIVE (NEGATIVE); URINE COLOR YELLOW; URINE GLUCOSE (UA) 3+ (NEGATIVE); URINE KETONE 4+ (NEGATIVE); URINE LEUK ESTERASE NEGATIVE (NEGATIVE); URINE NITRITE NEGATIVE (NEGATIVE); URINE PROTEIN 3+ (NEGATIVE); URINE RBC 18 /uL (0-23.9); URINE UROBILINOGEN 0.2 mg/dL (0.2-1.0); URINE WBC 50 /uL (0-25.8)
[2021-08-07] MEDS ORDERED: SODIUM CHLORIDE FOR INHALATION 3 ML VIAL.NEB IH ONE (11:10)
[2021-08-07] MEDS ORDERED: IBUPROFEN 400 MG TABLET (FP) PO ONE ×2 (12:29→12:31)
[2021-08-07 12:52] VITALS: PULSE 92
[2021-08-07 13:01] VITALS: BP 158/93
[2021-08-08 13:07] LABS: SARS-CoV-2 NAA Not Detected (Not Detected)
== END 2021-08-07 13:02 | disposition home or self-care (01) ==
LOC: JER 05:58
PROC: 3E0333Z Introduction of Anti-inflammatory into Peripheral Vein, Percutaneous Approach (ICD-10-PCS; principal; 2021-08-07)
PROC: 3E033GC Introduction of Other Therapeutic Substance into Peripheral Vein, Percutaneous Approach (ICD-10-PCS; 2021-08-07)
DX: R05.1 Acute cough (principal)
CPT/HCPCS: 36415; 71046-TC-FY; 80053; 81003; 82010; 82550; 82553; 82803; 82962; 83690; 84703; 85025; 87086; 99284-25; C9803-CS; U0003; U0005

== ENCOUNTER 2021-08-08 14:47 | Emergency (ER) | payer OTHER ==
[2021-08-08 15:12] VITALS: TEMP 100.2; BMI 31.6
[2021-08-08] MEDS ORDERED: IBUPROFEN 600 MG TABLET (FP) PO ONE ×2 (15:56→16:25)
[2021-08-08 17:24] LABS: BASO % 0.6 % (0-2.0); EOS % 0.1 % (0-4.5); HEMATOCRIT 39.9 % (32.4-45.2); HEMOGLOBIN 13.9 GM/dL (10.7-15.3); MCH 34.2 pg (25.7-33.7); MCHC 34.8 g/dl (32.0-36.0); MEAN CELL VOLUME 98.2 fl (80-96); MONO % 6.8 % (3.8-10.2); NEUT % 79.5 % (42.8-82.8); PLATELET COUNT 168 10^3/uL (134-434); RBC 4.06 M/mm3 (3.60-5.2); RDW 13.3 % (11.6-15.6); WHITE BLOOD COUNT 6.6 K/mm3 (4.0-10.0)
[2021-08-08 17:32] LABS: VENOUS BASE EXCESS -4.9 mmol/L (-2-2); VENOUS O2 SATURATION 79.3 % (70-80); VENOUS PCO2 35.2 mmHg (38-52); VENOUS PH 7.364 (7.310-7.410)
[2021-08-08 17:54] LABS: CALCIUM 9.1 mg/dL (8.5-10.1)
[2021-08-08 17:55] LABS: ALBUMIN 3.5 g/dl (3.4-5.0); BLOOD UREA NITROGEN 15.1 mg/dL (7-18); MAGNESIUM 2.1 mg/dL (1.8-2.4)
[2021-08-08 17:59] LABS: BILIRUBIN,TOTAL 0.7 mg/dL (0.2-1); TOT PROT 7.5 g/dl (6.4-8.2)
[2021-08-08 18:13] VITALS: BP 163/87; PULSE 97
[2021-08-08 18:29] LABS: EPI CELLS 28 /uL (0-25.1); HYALINE CASTS 2 /uL (0-3.1); PH,URINE 5.5 (5.0-8.0); URINE APPEARANCE CLEAR; URINE BACTERIA 948 /uL (0-1359); URINE BILIRUBIN NEGATIVE (NEGATIVE); URINE COLOR YELLOW; URINE GLUCOSE (UA) 3+ (NEGATIVE); URINE KETONE 4+ (NEGATIVE); URINE LEUK ESTERASE NEGATIVE (NEGATIVE); URINE NITRITE NEGATIVE (NEGATIVE); URINE PROTEIN 3+ (NEGATIVE); URINE RBC 21 /uL (0-23.9); URINE UROBILINOGEN 0.2 mg/dL (0.2-1.0); URINE WBC 15 /uL (0-25.8)
== END 2021-08-08 19:04 | disposition home or self-care (01) ==
LOC: JER 14:47
DX: J09.X2 Influenza due to identified novel influenza A virus with other respiratory manifestations (principal)
CPT/HCPCS: 36415; 80053; 81003; 82010; 82803; 82962; 83690; 83735; 85025; 87804; 93005; 93010; 99284-25

== ENCOUNTER 2022-03-13 12:48 | Emergency (ER) | payer OTHER ==
[2022-03-13 12:57] VITALS: RESP 18; BMI 30.7
[2022-03-13] MEDS ORDERED: ONDANSETRON 4 MG/2 ML VIAL IVPUSH ONE (13:30)
[2022-03-13] MEDS ORDERED: SODIUM CHLORIDE 1,000 ML IV STA ×2 (13:30→16:29)
[2022-03-13] MEDS ORDERED: FAMOTIDINE 20 MG/50 ML IVPB 20 MG/50 ML MG IVPB ONE ×2 (13:31→14:03)
[2022-03-13] MEDS ORDERED: PANTOPRAZOLE SODIUM 40 MG VIAL IVPUSH ONE (13:31)
[2022-03-13] MEDS ORDERED: PANTOPRAZOLE SODIUM 40 MG VIAL ONE (14:02)
[2022-03-13] MEDS ORDERED: ONDANSETRON 4 MG/2 ML VIAL ONE (14:02)
[2022-03-13 15:37] LABS: VENOUS BASE EXCESS 1.5 mmol/L (-2-2); VENOUS O2 SATURATION 53.1 % (70-80); VENOUS PCO2 49.3 mmHg (38-52); VENOUS PH 7.37 (7.310-7.410)
[2022-03-13 15:59] LABS: BASO % 0.4 % (0-2.0); HEMATOCRIT 43.5 % (32.4-45.2); HEMOGLOBIN 14.7 GM/dL (10.7-15.3); LYMPH % 16.9 % (8-40); MCH 33.2 pg (25.7-33.7); MCHC 33.8 g/dl (32.0-36.0); MEAN CELL VOLUME 98.2 fl (80-96); MEAN PLT VOLUME 9.5 fl (7.5-11.1); NEUT % 78.7 % (42.8-82.8); PLATELET COUNT 273 10^3/uL (134-434); RBC 4.42 M/mm3 (3.60-5.2); RDW 13.8 % (11.6-15.6); WHITE BLOOD COUNT 9.7 K/mm3 (4.0-10.0)
[2022-03-13 16:06] LABS: CHLORIDE 90 mmol/L (98-107); SODIUM 135 mmol/L (136-145)
[2022-03-13 16:09] LABS: ALBUMIN 4.4 g/dl (3.4-5.0); ANION GAP 18 MMOL/L (8-16); BLOOD UREA NITROGEN 23.2 mg/dL (7-18); CALCIUM 10.2 mg/dL (8.5-10.1); CO2 27 mmol/L (21-32); GLUCOSE,RANDOM 390 mg/dL (74-106); LIPASE 407 U/L (73-393); MAGNESIUM 2.1 mg/dL (1.8-2.4)
[2022-03-13 16:11] LABS: CREATININE 1.4 mg/dL (0.55-1.3); SGOT/AST 22 U/L (15-37)
[2022-03-13 16:12] LABS: SGPT/ALT 30 U/L (13-61)
[2022-03-13 16:13] LABS: BILIRUBIN,TOTAL 0.8 mg/dL (0.2-1); TOT PROT 8.6 g/dl (6.4-8.2)
[2022-03-13 16:14] LABS: ALK PHOS 100 U/L (45-117)
[2022-03-13] MEDS ORDERED: MAG HYDROX/AL HYDROX/SIMETH 30 ML UNIT-DOSE CUP PO ONE (16:29)
[2022-03-13] MEDS ORDERED: MAG HYDROX/AL HYDROX/SIMETH 30 ML UNIT-DOSE CUP ONE (16:54)
[2022-03-13 17:40] LABS: CALCIUM 9.1 mg/dL (8.5-10.1)
[2022-03-13 17:41] LABS: BLOOD UREA NITROGEN 24.8 mg/dL (7-18)
[2022-03-13 17:44] LABS: CREATININE 1.3 mg/dL (0.55-1.3)
[2022-03-13] MEDS ORDERED: INSULIN (NOVOLOG) ASPART 100 UNITS/ML 10ML VIAL SQ ONE ×2 (17:54→22:02)
[2022-03-13] MEDS ORDERED: METOCLOPRAMIDE HCL INJECTION 10 MG/2 ML VIAL IVPUSH ONE (18:30)
[2022-03-13] MEDS ORDERED: METOCLOPRAMIDE HCL INJECTION 10 MG/2 ML VIAL ONE (18:53)
[2022-03-13 19:45] VITALS: BP 132/78; PULSE 104; TEMP 99.1
[2022-03-13 20:47] LABS: CHLORIDE 100 mmol/L (98-107); SODIUM 136 mmol/L (136-145)
[2022-03-13 20:49] LABS: ANION GAP 9 MMOL/L (8-16); BLOOD UREA NITROGEN 24.3 mg/dL (7-18); CALCIUM 8.7 mg/dL (8.5-10.1); CO2 27 mmol/L (21-32); GLUCOSE,RANDOM 306 mg/dL (74-106)
[2022-03-13 20:53] LABS: CREATININE 1.3 mg/dL (0.55-1.3)
== END 2022-03-13 22:39 | disposition home or self-care (01) ==
LOC: JER 12:48
PROC: 3E033GC Introduction of Other Therapeutic Substance into Peripheral Vein, Percutaneous Approach (ICD-10-PCS; principal; 2022-03-13)
PROC: 3E033GC Introduction of Other Therapeutic Substance into Peripheral Vein, Percutaneous Approach (ICD-10-PCS; 2022-03-13)
PROC: 3E033GC Introduction of Other Therapeutic Substance into Peripheral Vein, Percutaneous Approach (ICD-10-PCS; 2022-03-13)
PROC: 3E033GC Introduction of Other Therapeutic Substance into Peripheral Vein, Percutaneous Approach (ICD-10-PCS; 2022-03-13)
PROC: 3E0337Z Introduction of Electrolytic and Water Balance Substance into Peripheral Vein, Percutaneous Approach (ICD-10-PCS; 2022-03-13)
PROC: 3E0337Z Introduction of Electrolytic and Water Balance Substance into Peripheral Vein, Percutaneous Approach (ICD-10-PCS; 2022-03-13)
DX: R11.2 Nausea with vomiting, unspecified (principal); E10.65 Type 1 diabetes mellitus with hyperglycemia; N17.9 Acute kidney failure, unspecified
CPT/HCPCS: 36415; 71045-TC-FY; 80048; 80053; 80307; 82010; 82550; 82553; 82803; 82962; 83605; 83690; 83735; 84484; 84703; 85025; 87086; 87186; 93005; 93010; 99285-25; C9803-CS; U0003; U0005

== ENCOUNTER 2022-03-30 09:11 | Emergency (ER) | payer OTHER ==
[2022-03-30 09:37] VITALS: BMI 29.0
[2022-03-30] MEDS ORDERED: ACETAMINOPHEN 325 MG TABLET (FP) PO ONE (09:55)
[2022-03-30] MEDS ORDERED: ONDANSETRON *ODT* 4 MG TABLET SL ONE (09:59)
[2022-03-30] MEDS ORDERED: ACETAMINOPHEN 325 MG TABLET (FP) ONE (10:00)
[2022-03-30] MEDS ORDERED: ONDANSETRON 4 MG/2 ML VIAL IVPUSH ONE (10:04)
[2022-03-30] MEDS ORDERED: ACETAMINOPHEN 1000 MG/100 ML BAG IVPB ONE (10:04)
[2022-03-30] MEDS ORDERED: ONDANSETRON 4 MG/2 ML VIAL ONE (10:04)
[2022-03-30] MEDS ORDERED: ACETAMINOPHEN INJECTION 100 ML IVPB ONE (10:04)
[2022-03-30 11:31] VITALS: BP 136/93; PULSE 89; RESP 18; TEMP 97.9
== END 2022-03-30 12:20 | disposition home or self-care (01) ==
LOC: JER 09:11
PROC: 3E0333Z Introduction of Anti-inflammatory into Peripheral Vein, Percutaneous Approach (ICD-10-PCS; principal; 2022-03-30)
PROC: 3E033GC Introduction of Other Therapeutic Substance into Peripheral Vein, Percutaneous Approach (ICD-10-PCS; 2022-03-30)
DX: U07.1 COVID-19 (principal)
CPT/HCPCS: 0241U-QW; 99284-25

== ENCOUNTER 2022-03-31 08:29 | Emergency (ER) | payer OTHER ==
[2022-03-31 08:45] VITALS: BP 169/107; PULSE 98; RESP 18; TEMP 98.2; BMI 25.0
[2022-03-31] MEDS ORDERED: ONDANSETRON *ODT* 4 MG TABLET SL ONE (10:07)
[2022-03-31] MEDS ORDERED: KETOROLAC TROMETHAMINE 30 MG/1 ML VIAL IM ONE (10:08)
[2022-03-31] MEDS ORDERED: KETOROLAC TROMETHAMINE 30 MG/1 ML VIAL ONE (10:17)
[2022-03-31] MEDS ORDERED: ONDANSETRON *ODT* 4 MG TABLET ONE (10:17)
== END 2022-03-31 13:02 | disposition home or self-care (01) ==
LOC: JER 08:29
PROC: 3E0233Z Introduction of Anti-inflammatory into Muscle, Percutaneous Approach (ICD-10-PCS; principal; 2022-03-31)
DX: U07.1 COVID-19 (principal)
CPT/HCPCS: 82962; 99284-25; Q0162

== ENCOUNTER 2022-07-31 09:05 | Observation (INO) | payer OTHER ==
[2022-07-31] MEDS ORDERED: SODIUM CHLORIDE 0.9% 1000 ML INFUS.BAG IV ONE (09:48)
[2022-07-31] MEDS ORDERED: ACETAMINOPHEN 1000 MG/100 ML BAG IVPB ONE (09:48)
[2022-07-31] MEDS ORDERED: ONDANSETRON 4 MG/2 ML VIAL IVPUSH ONE ×2 (09:48→14:38)
[2022-07-31] MEDS ORDERED: FAMOTIDINE 20 MG/50 ML IVPB 20 MG/50 ML MG IVPB ONE ×2 (10:09→10:31)
[2022-07-31] MEDS ORDERED: ACETAMINOPHEN INJECTION 100 ML IVPB ONE (10:30)
[2022-07-31] MEDS ORDERED: ONDANSETRON 4 MG/2 ML VIAL ONE ×2 (10:31→15:47)
[2022-07-31 10:37] LABS: CALCIUM 9.7 mg/dL (8.5-10.1)
[2022-07-31 10:38] LABS: ALBUMIN 3.7 g/dl (3.4-5.0)
[2022-07-31 10:40] LABS: CREATININE 1.2 mg/dL (0.55-1.3)
[2022-07-31 10:42] LABS: TOT PROT 8.2 g/dl (6.4-8.2)
[2022-07-31 10:43] LABS: BILIRUBIN,TOTAL 0.8 mg/dL (0.2-1)
[2022-07-31] MEDS ORDERED: morphine CARPU-JECT 4 MG/1 ML DISP.SYRIN IVPUSH ONE ×2 (10:53→14:38)
[2022-07-31] MEDS ORDERED: morphine SULFATE 4 MG/ML VIAL ONE ×2 (11:04→15:47)
[2022-07-31 11:17] LABS: HEMATOCRIT 36.7 % (32.4-45.2); HEMOGLOBIN 12.5 GM/dL (10.7-15.3); MCH 33.7 pg (25.7-33.7); MCHC 34.1 g/dl (32.0-36.0); MEAN CELL VOLUME 98.8 fl (80-96); MEAN PLT VOLUME 8.3 fl (7.5-11.1); PLATELET COUNT 261 10^3/uL (134-434); RBC 3.71 M/mm3 (3.60-5.2); RDW 13.6 % (11.6-15.6); WHITE BLOOD COUNT 8.6 K/mm3 (4.0-10.0)
[2022-07-31] MEDS ORDERED: LACTATED RINGERS SOLUTION 1000 ML INFUS.BAG IV ONE (11:20)
[2022-07-31 11:25] LABS: INR 1.02 (0.83-1.09); PROTHROMBIN TIME (PATIENT) 11.8 SEC (9.7-13.0)
[2022-07-31 11:28] LABS: ACTIVATED PTT 30.9 SECONDS (25.2-36.5)
[2022-07-31 11:33] LABS: ALBUMIN 3.5 g/dl (3.4-5.0); BLOOD UREA NITROGEN 13.7 mg/dL (7-18); CALCIUM 9.8 mg/dL (8.5-10.1)
[2022-07-31 11:36] LABS: CREATININE 1.1 mg/dL (0.55-1.3)
[2022-07-31 11:38] LABS: BILIRUBIN,TOTAL 0.5 mg/dL (0.2-1); TOT PROT 7.2 g/dl (6.4-8.2)
[2022-07-31 17:45] LABS: URINE COLOR YELLOW
[2022-07-31] MEDS ORDERED: LACTATED RINGERS SOLUTION 1,000 ML/1,000 ML INFUS.BAG IV SCH ×2 (17:45)
[2022-07-31 17:46] LABS: EPI CELLS 213.4 /uL (0-25.1); HYALINE CASTS 1.13 /uL (0-3.1); URINE APPEARANCE CLOUDY; URINE BACTERIA 3598.9 /uL (0-1359); URINE BILIRUBIN NEGATIVE (NEGATIVE); URINE GLUCOSE (UA) 250 (NEGATIVE); URINE KETONE 15 mg/dl (NEGATIVE); URINE LEUK ESTERASE NEGATIVE (NEGATIVE); URINE NITRITE NEGATIVE (NEGATIVE); URINE PROTEIN 100 (NEGATIVE); URINE RBC 32.1 /uL (0-23.9); URINE UROBILINOGEN 0.2 mg/dL (0.2-1.0); URINE WBC 29.5 /uL (0-25.8)
[2022-07-31] MEDS: ONDANSETRON 4 MG/2 ML VIAL IVPUSH PRN (18:52)
[2022-07-31] MEDS ORDERED: HYDROmorphone HCl 2 MG/ML VIAL IVPUSH ONE (19:14)
[2022-07-31] MEDS ORDERED: morphine SULFATE 4 MG/ML VIAL IVPUSH PRN (19:16)
[2022-07-31] MEDS ORDERED: ACETAMINOPHEN 1000 MG/100 ML BAG IVPB PRN (19:18)
[2022-07-31] MEDS ORDERED: HYDROmorphone HCl 2 MG/ML VIAL IVPB ONE (19:30)
[2022-07-31] MEDS: NIFEdipine E.R. 30 MG TABLET PO SCH (19:36)
[2022-07-31 20:16] VITALS: BMI 30.9
[2022-07-31] MEDS ORDERED: INSULIN (LEVEMIR) 100 UNITS/ML UNITS SQ SCH (22:00)
[2022-08-01 01:26] VITALS: RESP 20
[2022-08-01] MEDS: ONDANSETRON 4 MG/2 ML VIAL IVPUSH PRN ×3 (03:34→13:20)
[2022-08-01] MEDS: INSULIN SLIDING SCALE (NOVOLOG) 1 VIAL SQ SCH ×3 (06:32→16:16)
[2022-08-01 07:39] LABS: BASO % 0.5 % (0-2.0); EOS % 0.8 % (0-4.5); HEMATOCRIT 35.6 % (32.4-45.2); HEMOGLOBIN 12.1 GM/dL (10.7-15.3); LYMPH % 26.6 % (8-40); MCH 32.7 pg (25.7-33.7); MEAN CELL VOLUME 96.3 fl (80-96); MEAN PLT VOLUME 7.8 fl (7.5-11.1); NEUT % 67.1 % (42.8-82.8); PLATELET COUNT 241 10^3/uL (134-434); WHITE BLOOD COUNT 8.2 K/mm3 (4.0-10.0)
[2022-08-01 08:05] LABS: BLOOD UREA NITROGEN 11.4 mg/dL (7-18); CALCIUM 9.2 mg/dL (8.5-10.1)
[2022-08-01 08:08] LABS: CREATININE 0.9 mg/dL (0.55-1.3)
[2022-08-01 09:12] VITALS: TEMP 98.2
[2022-08-01] MEDS: NIFEdipine E.R. 30 MG TABLET PO SCH (09:19)
[2022-08-01] MEDS ORDERED: INSULIN (LEVEMIR) 100 UNITS/ML UNITS SQ SCH (12:15)
[2022-08-01 15:29] VITALS: BP 125/68; PULSE 90
[2022-08-01] MEDS ORDERED: METOCLOPRAMIDE HCL INJECTION 10 MG/2 ML VIAL IVPUSH SCH (15:30)
== END 2022-08-01 17:14 | disposition left against medical advice (07) ==
LOC: JER 09:05 → INTOOBSV 16:59 → JERBED 16:59 → J8W 18:52 → J4W 21:20
PROVIDERS: ADMIT Internal Medicine; ATTEND Internal Medicine
PROC: 3E033NZ Introduction of Analgesics, Hypnotics, Sedatives into Peripheral Vein, Percutaneous Approach (ICD-10-PCS; principal; 2022-07-31)
PROC: 3E033GC Introduction of Other Therapeutic Substance into Peripheral Vein, Percutaneous Approach (ICD-10-PCS; 2022-07-31)
PROC: 3E033NZ Introduction of Analgesics, Hypnotics, Sedatives into Peripheral Vein, Percutaneous Approach (ICD-10-PCS; 2022-07-31)
PROC: 3E013VG Introduction of Insulin into Subcutaneous Tissue, Percutaneous Approach (ICD-10-PCS; 2022-07-31)
PROC: 3E0337Z Introduction of Electrolytic and Water Balance Substance into Peripheral Vein, Percutaneous Approach (ICD-10-PCS; 2022-07-31)
DX: F12.90 Cannabis use, unspecified, uncomplicated (principal); E10.65 Type 1 diabetes mellitus with hyperglycemia; R11.2 Nausea with vomiting, unspecified; E66.8 Other obesity; Z68.30 Body mass index [BMI] 30.0-30.9, adult; R10.9 Unspecified abdominal pain; Z88.0 Allergy status to penicillin
CPT/HCPCS: 0241U-QW; 36415; 74177-TC; 74181-TC; 76705-TC; 80048; 80053; 80061; 81003; 82010; 82962; 83690; 84484; 84703; 85025; 85027; 85610; 85730; 87086; 93005; 93010; 96361; 96365; 96372; 96375; 96376; 99285-25; G0378; Q9967

== ENCOUNTER 2022-09-04 12:42 | Inpatient (IN) | payer OTHER ==
[2022-09-04 12:47] VITALS: BMI 29.8
[2022-09-04] MEDS ORDERED: FAMOTIDINE 20 MG/50 ML IVPB 20 MG/50 ML MG IVPB ONE (13:38)
[2022-09-04] MEDS ORDERED: ONDANSETRON 4 MG/2 ML VIAL IVPUSH ONE (13:38)
[2022-09-04] MEDS ORDERED: LOPERAMIDE HCL 2 MG CAPSULE PO ONE (13:39)
[2022-09-04] MEDS ORDERED: ACETAMINOPHEN 1000 MG/100 ML BAG IVPB ONE (13:39)
[2022-09-04] MEDS ORDERED: LACTATED RINGERS SOLUTION 1,000 ML/1,000 ML INFUS.BAG IV SCH (13:45)
[2022-09-04] MEDS ORDERED: ONDANSETRON 4 MG/2 ML VIAL ONE ×2 (14:12→15:42)
[2022-09-04] MEDS ORDERED: ACETAMINOPHEN INJECTION 100 ML IVPB ONE ×2 (14:12→15:42)
[2022-09-04 14:45] LABS: EPI CELLS >36 /uL (0-25.1); HCG,QUALITATIVE URINE Negative; HYALINE CASTS 0 /uL (0-3.1); PH,URINE 7.5 (5.0-8.0); URINE APPEARANCE CLEAR; URINE BACTERIA 678 /uL (0-1359); URINE BILIRUBIN NEGATIVE (NEGATIVE); URINE COLOR YELLOW; URINE GLUCOSE (UA) NEGATIVE (NEGATIVE); URINE KETONE NEGATIVE (NEGATIVE); URINE LEUK ESTERASE NEGATIVE (NEGATIVE); URINE NITRITE NEGATIVE (NEGATIVE); URINE PROTEIN 3+ (NEGATIVE); URINE RBC 94 /uL (0-23.9); URINE UROBILINOGEN 0.2 mg/dL (0.2-1.0); URINE WBC 11 /uL (0-25.8)
[2022-09-04] MEDS ORDERED: ONDANSETRON *ODT* 4 MG TABLET SL ONE (14:45)
[2022-09-04] MEDS ORDERED: LOPERAMIDE HCL 2 MG CAPSULE ONE ×2 (15:41→16:04)
[2022-09-04 16:02] LABS: BASO % 0.8 % (0-2.0); EOS % 1.1 % (0-4.5); HEMATOCRIT 36.6 % (32.4-45.2); HEMOGLOBIN 12.7 GM/dL (10.7-15.3); MCH 33.6 pg (25.7-33.7); MCHC 34.6 g/dl (32.0-36.0); MEAN CELL VOLUME 97.2 fl (80-96); MONO % 4.3 % (3.8-10.2); NEUT % 63.8 % (42.8-82.8); PLATELET COUNT 285 10^3/uL (134-434); RBC 3.76 M/mm3 (3.60-5.2); WHITE BLOOD COUNT 7.6 K/mm3 (4.0-10.0)
[2022-09-04 16:30] LABS: ALBUMIN 3.6 g/dl (3.4-5.0); BLOOD UREA NITROGEN 16.9 mg/dL (7-18); CALCIUM 9.4 mg/dL (8.5-10.1)
[2022-09-04 16:33] LABS: CREATININE 1.2 mg/dL (0.55-1.3)
[2022-09-04 16:34] LABS: BILIRUBIN,TOTAL 0.4 mg/dL (0.2-1)
[2022-09-04 16:35] LABS: TOT PROT 7.8 g/dl (6.4-8.2)
[2022-09-04] MEDS ORDERED: morphine CARPU-JECT 4 MG/1 ML DISP.SYRIN IVPUSH ONE (17:00)
[2022-09-04] MEDS ORDERED: METOCLOPRAMIDE HCL INJECTION 10 MG/2 ML VIAL IVPUSH ONE (17:01)
[2022-09-04] MEDS ORDERED: morphine SULFATE 4 MG/ML VIAL ONE (17:02)
[2022-09-04] MEDS ORDERED: METOCLOPRAMIDE HCL INJECTION 10 MG/2 ML VIAL ONE (17:09)
[2022-09-04] MEDS ORDERED: ACETAMINOPHEN 325 MG TABLET (FP) PO PRN (22:54)
[2022-09-04] MEDS ORDERED: DEXTROSE 50%-WATER 25 GM/50 ML DISP.SYRIN IVPUSH PRN (23:02)
[2022-09-05] MEDS ORDERED: SIMETHICONE 80 MG TAB.CHEW (FP) PO PRN (00:59)
[2022-09-05] MEDS: ONDANSETRON 4 MG/2 ML VIAL IVPUSH PRN ×2 (01:08→12:50)
[2022-09-05] MEDS ORDERED: ACETAMINOPHEN 1000 MG/100 ML BAG IVPB ONE (01:51)
[2022-09-05] MEDS ORDERED: ACETAMINOPHEN INJECTION 100 ML IVPB ONE (01:52)
[2022-09-05] MEDS: LISINOPRIL 5 MG TABLET PO SCH ×2 (03:02→09:24)
[2022-09-05] MEDS: INSULIN SLIDING SCALE (NOVOLOG) 1 VIAL SQ SCH ×4 (06:00→22:38)
[2022-09-05 08:22] LABS: CALCIUM 9.2 mg/dL (8.5-10.1)
[2022-09-05 08:23] LABS: ALBUMIN 3.2 g/dl (3.4-5.0); BLOOD UREA NITROGEN 15.6 mg/dL (7-18); MAGNESIUM 1.6 mg/dL (1.8-2.4)
[2022-09-05 08:25] LABS: CREATININE 1.1 mg/dL (0.55-1.3); PHOSPHOROUS 2.8 mg/dL (2.5-4.9)
[2022-09-05 08:27] LABS: BILIRUBIN,TOTAL 0.4 mg/dL (0.2-1); TOT PROT 7.1 g/dl (6.4-8.2)
[2022-09-05 08:34] LABS: BASO % 0.4 % (0-2.0); EOS % 0.7 % (0-4.5); HEMATOCRIT 34.1 % (32.4-45.2); HEMOGLOBIN 12.1 GM/dL (10.7-15.3); LYMPH % 31.4 % (8-40); MCHC 35.5 g/dl (32.0-36.0); MEAN CELL VOLUME 95.9 fl (80-96); MEAN PLT VOLUME 7.9 fl (7.5-11.1); MONO % 3.3 % (3.8-10.2); NEUT % 64.2 % (42.8-82.8); PLATELET COUNT 237 10^3/uL (134-434); RBC 3.56 M/mm3 (3.60-5.2); WHITE BLOOD COUNT 7.1 K/mm3 (4.0-10.0)
[2022-09-05] MEDS ORDERED: MAGNESIUM SULF 50% (8.12 MEQ/2 ML-1 GM VIAL) IVPB ONE (08:51)
[2022-09-05] MEDS: LACTATED RINGERS SOLUTION 1,000 ML/1,000 ML INFUS.BAG IV SCH (09:22)
[2022-09-05] MEDS: SIMETHICONE 80 MG TAB.CHEW (FP) PO SCH ×4 (09:24→22:38)
[2022-09-05] MEDS: INSULIN (LEVEMIR) 100 UNITS/ML UNITS SQ SCH ×2 (09:31→22:38)
[2022-09-05] MEDS ORDERED: ENOXAPARIN NA (PORCINE) 40 MG/0.4 ML DISP.SYRIN SQ SCH (10:00)
[2022-09-05 14:05] VITALS: RESP 18
[2022-09-05] MEDS ORDERED: oxyCODONE HCL 5 MG TABLET PO PRN (15:04)
[2022-09-05] MEDS ORDERED: LORazepam 0.5 MG TABLET PO ONE (15:05)
[2022-09-05] MEDS ORDERED: METOCLOPRAMIDE HCL INJECTION 10 MG/2 ML VIAL IVPUSH PRN (15:06)
[2022-09-05] MEDS: METOCLOPRAMIDE HCL INJECTION 10 MG/2 ML VIAL IVPUSH SCH (15:23)
[2022-09-05] MEDS ORDERED: LISINOPRIL 10 MG TABLET PO SCH (17:05)
[2022-09-05] MEDS ORDERED: HALOPERIDOL LACTATE 5 MG/ML IM ONE (17:06)
[2022-09-05 18:17] LABS: COCAINE, UR NEGATIVE (NEGATIVE); METHADONE, UR NEGATIVE (NEGATIVE); OPIATES, URI POSITIVE (NEGATIVE); PHENCYCLIDINE,URINE NEGATIVE (NEGATIVE); URINE AMPHETAMINES NEGATIVE (NEGATIVE); URINE BARBITURATES NEGATIVE (NEGATIVE); URINE BENZODIAZEPINES NEGATIVE (NEGATIVE)
[2022-09-05] MEDS ORDERED: INSULIN (NOVOLOG) ASPART 100 UNITS/ML 10ML VIAL ONE (22:04)
[2022-09-06] MEDS: METOCLOPRAMIDE HCL INJECTION 10 MG/2 ML VIAL IVPUSH SCH ×2 (01:44→06:15)
[2022-09-06 05:38] VITALS: BP 137/92; PULSE 100; TEMP 98.1
[2022-09-06] MEDS: INSULIN SLIDING SCALE (NOVOLOG) 1 VIAL SQ SCH (06:13)
[2022-09-06] MEDS: LACTATED RINGERS SOLUTION 1,000 ML/1,000 ML INFUS.BAG IV SCH (06:13)
[2022-09-06 08:09] LABS: BASO % 0.2 % (0-2.0); HEMATOCRIT 34.5 % (32.4-45.2); HEMOGLOBIN 12.3 GM/dL (10.7-15.3); LYMPH % 15.9 % (8-40); MCH 33.8 pg (25.7-33.7); MCHC 35.6 g/dl (32.0-36.0); MONO % 4.2 % (3.8-10.2); NEUT % 79.7 % (42.8-82.8); PLATELET COUNT 244 10^3/uL (134-434); RBC 3.63 M/mm3 (3.60-5.2); RDW 13.7 % (11.6-15.6); WHITE BLOOD COUNT 11.7 K/mm3 (4.0-10.0)
[2022-09-06 08:34] LABS: CALCIUM 9.5 mg/dL (8.5-10.1)
[2022-09-06 08:35] LABS: ALBUMIN 3.4 g/dl (3.4-5.0); BLOOD UREA NITROGEN 19.6 mg/dL (7-18); MAGNESIUM 1.8 mg/dL (1.8-2.4)
[2022-09-06 08:37] LABS: CREATININE 1.2 mg/dL (0.55-1.3)
[2022-09-06 08:38] LABS: BILIRUBIN,TOTAL 0.5 mg/dL (0.2-1); PHOSPHOROUS 3.2 mg/dL (2.5-4.9); TOT PROT 7.5 g/dl (6.4-8.2)
[2022-09-08 06:06] LABS: IG G QN IMMUNOGLOBULIN 1524 mg/dL (586-1602); IGG SUBCLASS 1 913 mg/dL (248-810); IGG SUBCLASS 2 459 mg/dL (130-555); IGG SUBCLASS 3 52 mg/dL (15-102)
== END 2022-09-06 09:00 | disposition left against medical advice (07) | DRG 249 ==
LOC: JER 12:42 → JERBED 20:38 → J7W 09-05 02:22
PROVIDERS: ADMIT Internal Medicine; ATTEND Internal Medicine
DX: K52.9 Noninfective gastroenteritis and colitis, unspecified (principal); I10 Essential (primary) hypertension; E11.9 Type 2 diabetes mellitus without complications; R10.9 Unspecified abdominal pain; R74.8 Abnormal levels of other serum enzymes
CPT/HCPCS: 0241U-QW; 36415; 74019-TC-FY; 74177-TC; 80053; 80307; 81003; 82784; 82787; 82962; 83690; 83735; 83883; 84100; 84439; 84443; 84703; 85025; 86038; 86140; 86301; 87077; 87086; 93005; 93010; 99285-25; Q9967

== ENCOUNTER 2022-10-11 12:20 | Observation (INO) | payer OTHER ==
[2022-10-11] MEDS ORDERED: METOCLOPRAMIDE HCL INJECTION 10 MG/2 ML VIAL IVPB ONE (13:41)
[2022-10-11] MEDS ORDERED: ACETAMINOPHEN 1000 MG/100 ML BAG IVPB ONE (13:41)
[2022-10-11] MEDS ORDERED: LORazepam 2 MG/ML SDV VIAL IVPB ONE (13:42)
[2022-10-11] MEDS ORDERED: LACTATED RINGERS SOLUTION 1000 ML INFUS.BAG IV ONE (13:45)
[2022-10-11] MEDS ORDERED: METOCLOPRAMIDE HCL INJECTION 10 MG/2 ML VIAL ONE (14:10)
[2022-10-11] MEDS ORDERED: ACETAMINOPHEN INJECTION 100 ML IVPB ONE (14:10)
[2022-10-11 14:37] LABS: BASO % 0.6 % (0-2.0); EOS % 0.5 % (0-4.5); HEMATOCRIT 35.8 % (32.4-45.2); HEMOGLOBIN 12.2 GM/dL (10.7-15.3); MCH 33.1 pg (25.7-33.7); MCHC 34.1 g/dl (32.0-36.0); MEAN CELL VOLUME 97.2 fl (80-96); MEAN PLT VOLUME 8.8 fl (7.5-11.1); MONO % 5.8 % (3.8-10.2); NEUT % 74.1 % (42.8-82.8); PLATELET COUNT 281 10^3/uL (134-434); RBC 3.68 M/mm3 (3.60-5.2); WHITE BLOOD COUNT 12.5 K/mm3 (4.0-10.0)
[2022-10-11 14:55] LABS: POTASSIUM 4.3 mmol/L (3.5-5.1)
[2022-10-11 15:01] LABS: CREATININE 1.2 mg/dL (0.55-1.3)
[2022-10-11 15:03] LABS: BILIRUBIN,TOTAL 0.7 mg/dL (0.2-1)
[2022-10-11 15:22] LABS: ALBUMIN 3.7 g/dl (3.4-5.0); BLOOD UREA NITROGEN 15.3 mg/dL (7-18); CALCIUM 9.6 mg/dL (8.5-10.1)
[2022-10-11 15:23] LABS: MAGNESIUM 1.7 mg/dL (1.8-2.4)
[2022-10-11 15:28] LABS: TOT PROT 7.6 g/dl (6.4-8.2)
[2022-10-11] MEDS ORDERED: MAGNESIUM SULF 50% (8.12 MEQ/2 ML-1 GM VIAL) IVPB ONE (15:32)
[2022-10-11] MEDS ORDERED: MAGNESIUM SULFATE IN WATER 2 GM/50 ML IVPB IVPB ONE (15:43)
[2022-10-11] MEDS ORDERED: TRIMETHOBENZAMIDE HCL 200MG/2ML INJ IM ONE ×2 (16:09→16:53)
[2022-10-11 17:30] LABS: VENOUS BASE EXCESS -1.5 mmol/L (-2-2); VENOUS O2 SATURATION 71.3 % (70-80); VENOUS PCO2 44.4 mmHg (38-52); VENOUS PH 7.354 (7.310-7.410)
[2022-10-11] MEDS ORDERED: ONDANSETRON *ODT* 4 MG TABLET SL ONE (20:30)
[2022-10-11] MEDS ORDERED: ACETAMINOPHEN 500 MG TABLET (FP) PO ONE (20:30)
[2022-10-11] MEDS ORDERED: ONDANSETRON *ODT* 4 MG TABLET ONE (20:38)
[2022-10-11] MEDS ORDERED: ACETAMINOPHEN 325 MG TABLET (FP) ONE (20:39)
[2022-10-11] MEDS ORDERED: HALOPERIDOL LACTATE 5 MG/ML IM ONE (21:54)
[2022-10-12] MEDS ORDERED: METOCLOPRAMIDE HCL INJECTION 10 MG/2 ML VIAL IVPUSH PRN (00:53)
[2022-10-12] MEDS ORDERED: LACTATED RINGERS SOLUTION 1,000 ML IV SCH ×2 (01:00→02:10)
[2022-10-12 02:07] VITALS: BMI 33.9
[2022-10-12] MEDS ORDERED: LISINOPRIL 5 MG TABLET PO ONE (02:09)
[2022-10-12 02:36] LABS: EPI CELLS >36 /uL (0-25.1); HYALINE CASTS 0 /uL (0-3.1); PH,URINE 5.5 (5.0-8.0); URINE APPEARANCE CLEAR; URINE BACTERIA 1278 /uL (0-1359); URINE BILIRUBIN NEGATIVE (NEGATIVE); URINE COLOR YELLOW; URINE GLUCOSE (UA) 3+ (NEGATIVE); URINE KETONE 3+ (NEGATIVE); URINE LEUK ESTERASE NEGATIVE (NEGATIVE); URINE NITRITE NEGATIVE (NEGATIVE); URINE PROTEIN 3+ (NEGATIVE); URINE RBC 20 /uL (0-23.9); URINE UROBILINOGEN 0.2 mg/dL (0.2-1.0); URINE WBC 21 /uL (0-25.8)
[2022-10-12 02:41] LABS: COCAINE, UR NEGATIVE (NEGATIVE); OPIATES, URI NEGATIVE (NEGATIVE); PHENCYCLIDINE,URINE NEGATIVE (NEGATIVE); URINE BARBITURATES NEGATIVE (NEGATIVE)
[2022-10-12 02:42] LABS: METHADONE, UR NEGATIVE (NEGATIVE); URINE BENZODIAZEPINES NEGATIVE (NEGATIVE)
[2022-10-12 03:45] LABS: URINE AMPHETAMINES NEGATIVE (NEGATIVE)
[2022-10-12 03:49] LABS: BASO % 0.6 % (0-2.0); HEMATOCRIT 35.3 % (32.4-45.2); HEMOGLOBIN 12.1 GM/dL (10.7-15.3); LYMPH % 12.5 % (8-40); MCH 33.2 pg (25.7-33.7); MCHC 34.4 g/dl (32.0-36.0); MEAN CELL VOLUME 96.7 fl (80-96); MEAN PLT VOLUME 8.7 fl (7.5-11.1); NEUT % 82.9 % (42.8-82.8); PLATELET COUNT 265 10^3/uL (134-434); RBC 3.65 M/mm3 (3.60-5.2); RDW 13.9 % (11.6-15.6); WHITE BLOOD COUNT 11.5 K/mm3 (4.0-10.0)
[2022-10-12 05:34] VITALS: TEMP 98.3
[2022-10-12] MEDS: INSULIN SLIDING SCALE (NOVOLOG) 1 VIAL SQ SCH ×2 (06:03→12:15)
[2022-10-12 09:34] LABS: POTASSIUM 3.8 mmol/L (3.5-5.1)
[2022-10-12 09:36] LABS: ALBUMIN 3.2 g/dl (3.4-5.0); CALCIUM 9.3 mg/dL (8.5-10.1)
[2022-10-12 09:37] LABS: MAGNESIUM 1.9 mg/dL (1.8-2.4)
[2022-10-12 09:40] LABS: CREATININE 1.3 mg/dL (0.55-1.3); PHOSPHOROUS 3.6 mg/dL (2.5-4.9)
[2022-10-12 09:41] LABS: BILIRUBIN,TOTAL 0.7 mg/dL (0.2-1)
[2022-10-12 09:42] LABS: TOT PROT 6.9 g/dl (6.4-8.2)
[2022-10-12] MEDS ORDERED: ENOXAPARIN NA (PORCINE) 40 MG/0.4 ML DISP.SYRIN SQ SCH (10:00)
[2022-10-12 12:22] VITALS: BP 152/88; PULSE 100; RESP 16
[2022-10-12] MEDS ORDERED: LACTATED RINGERS SOLUTION 1000 ML INFUS.BAG IV ONE (13:45)
== END 2022-10-12 12:00 | disposition left against medical advice (07) ==
LOC: JER 12:20 → JERBED 23:02 → J5S 10-12 01:38
PROVIDERS: ADMIT Internal Medicine; ATTEND Internal Medicine
PROC: 3E033NZ Introduction of Analgesics, Hypnotics, Sedatives into Peripheral Vein, Percutaneous Approach (ICD-10-PCS; principal; 2022-10-11)
PROC: 3E033GC Introduction of Other Therapeutic Substance into Peripheral Vein, Percutaneous Approach (ICD-10-PCS; 2022-10-11)
PROC: 3E023GC Introduction of Other Therapeutic Substance into Muscle, Percutaneous Approach (ICD-10-PCS; 2022-10-11)
PROC: 3E0337Z Introduction of Electrolytic and Water Balance Substance into Peripheral Vein, Percutaneous Approach (ICD-10-PCS; 2022-10-11)
DX: R10.84 Generalized abdominal pain (principal); E11.9 Type 2 diabetes mellitus without complications; Z79.4 Long term (current) use of insulin; I10 Essential (primary) hypertension; K85.90 Acute pancreatitis without necrosis or infection, unspecified; R11.2 Nausea with vomiting, unspecified; R19.7 Diarrhea, unspecified; Z88.0 Allergy status to penicillin; E66.01 Morbid (severe) obesity due to excess calories; Z68.33 Body mass index [BMI] 33.0-33.9, adult
CPT/HCPCS: 0241U-QW; 36415; 71045-TC-FY; 74177-TC; 80053; 80307; 81003; 82010; 82803; 82962; 83036; 83690; 83735; 84100; 84703; 85025; 93005; 93010; 96361; 96372; 96374; 96375; 99285-25; G0378; Q0162; Q9967

== ENCOUNTER 2022-12-12 23:20 | Emergency (ER) | payer OTHER ==
[2022-12-12 23:33] VITALS: RESP 20; TEMP 99.2; BMI 33.9
[2022-12-12 23:41] VITALS: PULSE 74
[2022-12-13] MEDS ORDERED: KETOROLAC TROMETHAMINE 30 MG/1 ML VIAL IM ONE (00:14)
[2022-12-13] MEDS ORDERED: KETOROLAC TROMETHAMINE 30 MG/1 ML VIAL ONE (00:15)
[2022-12-13] MEDS ORDERED: oxyCODONE HCL 5 MG TABLET PO ONE (00:19)
[2022-12-13] MEDS ORDERED: LISINOPRIL 10 MG TABLET PO ONE (00:20)
[2022-12-13] MEDS ORDERED: oxyCODONE HCL 5 MG TABLET ONE (00:23)
[2022-12-13] MEDS ORDERED: LISINOPRIL 10 MG TABLET ONE (00:27)
[2022-12-13 01:01] VITALS: BP 173/93
== END 2022-12-13 01:01 | disposition home or self-care (01) ==
LOC: JER 23:20
PROC: 3E0233Z Introduction of Anti-inflammatory into Muscle, Percutaneous Approach (ICD-10-PCS; principal; 2022-12-13)
DX: K08.89 Other specified disorders of teeth and supporting structures (principal)
CPT/HCPCS: 93005; 93010; 99284-25

== ENCOUNTER 2023-04-16 15:31 | Emergency (ER) | payer OTHER ==
[2023-04-16 15:38] VITALS: BP 182/114; PULSE 84; RESP 24; TEMP 98.1; BMI 31.9
[2023-04-16] MEDS ORDERED: FAMOTIDINE 20 MG/50 ML IVPB 20 MG/50 ML MG IVPB ONE ×2 (16:33→16:36)
[2023-04-16] MEDS ORDERED: SODIUM CHLORIDE 1,000 ML IV STA (16:33)
[2023-04-16] MEDS ORDERED: ONDANSETRON 4 MG/2 ML VIAL IVPUSH ONE (16:33)
[2023-04-16] MEDS ORDERED: morphine SULFATE 4 MG/ML VIAL IVPUSH ONE (16:34)
[2023-04-16] MEDS ORDERED: morphine SULFATE 4 MG/ML VIAL ONE (16:36)
[2023-04-16] MEDS ORDERED: ONDANSETRON 4 MG/2 ML VIAL ONE (16:36)
[2023-04-16 17:34] LABS: BASO % 0.2 % (0-2.0); EOS % 0.4 % (0-4.5); HEMATOCRIT 37.3 % (32.4-45.2); LYMPH % 24.3 % (8-40); MCH 33.4 pg (25.7-33.7); MCHC 34.8 g/dl (32.0-36.0); MEAN CELL VOLUME 95.8 fl (80-96); MEAN PLT VOLUME 7.6 fl (7.5-11.1); MONO % 4.7 % (3.8-10.2); NEUT % 70.4 % (42.8-82.8); PLATELET COUNT 286 10^3/uL (134-434); RBC 3.89 M/mm3 (3.60-5.2); RDW 14.1 % (11.6-15.6); WHITE BLOOD COUNT 8.1 K/mm3 (4.0-10.0)
[2023-04-16 17:56] LABS: CHLORIDE 104 mmol/L (98-107); SODIUM 132 mmol/L (136-145)
[2023-04-16 17:59] LABS: ALBUMIN 3.5 g/dl (3.4-5.0); BLOOD UREA NITROGEN 15.7 mg/dL (7-18); CALCIUM 9.1 mg/dL (8.5-10.1); CO2 24 mmol/L (21-32); GLUCOSE,RANDOM 145 mg/dL (74-106); INR 1.07 (0.83-1.09); LIPASE 373 U/L (73-393); MAGNESIUM 1.8 mg/dL (1.8-2.4); PROTHROMBIN TIME (PATIENT) 12.4 SEC (9.7-13.0)
[2023-04-16 18:02] LABS: ACTIVATED PTT 27.9 SECONDS (25.2-36.5); CREATININE 1.4 mg/dL (0.55-1.3); SGOT/AST 87 U/L (15-37)
[2023-04-16 18:04] LABS: BILIRUBIN,TOTAL 0.4 mg/dL (0.2-1); TOT PROT 8.1 g/dl (6.4-8.2)
[2023-04-16 18:05] LABS: ALK PHOS 93 U/L (45-117)
[2023-04-16 18:13] LABS: ANION GAP 4 mmol/L (4-13); POTASSIUM 6.6 mmol/L (3.5-5.1); SGPT/ALT 29 U/L (13-61)
[2023-04-16] MEDS ORDERED: METOCLOPRAMIDE HCL INJECTION 10 MG/2 ML VIAL IVPUSH ONE (18:19)
[2023-04-16] MEDS ORDERED: METOCLOPRAMIDE HCL INJECTION 10 MG/2 ML VIAL ONE (18:21)
[2023-04-16] MEDS ORDERED: ACETAMINOPHEN 1000 MG/100 ML BAG IVPB ONE (19:06)
[2023-04-16] MEDS ORDERED: ACETAMINOPHEN INJECTION 100 ML IVPB ONE (19:15)
[2023-04-16 20:04] LABS: CALCIUM 9.1 mg/dL (8.5-10.1)
[2023-04-16 20:05] LABS: BLOOD UREA NITROGEN 15.3 mg/dL (7-18)
[2023-04-16 20:08] LABS: CREATININE 1.3 mg/dL (0.55-1.3)
[2023-04-16] MEDS ORDERED: VALSARTAN 80 MG TABLET PO ONE (20:08)
[2023-04-16] MEDS ORDERED: VALSARTAN 80 MG TABLET ONE (20:08)
== END 2023-04-16 20:21 | disposition left against medical advice (07) ==
LOC: JER 15:31
PROC: 3E033GC Introduction of Other Therapeutic Substance into Peripheral Vein, Percutaneous Approach (ICD-10-PCS; principal; 2023-04-16)
PROC: 3E033NZ Introduction of Analgesics, Hypnotics, Sedatives into Peripheral Vein, Percutaneous Approach (ICD-10-PCS; 2023-04-16)
PROC: 3E033GC Introduction of Other Therapeutic Substance into Peripheral Vein, Percutaneous Approach (ICD-10-PCS; 2023-04-16)
PROC: 3E033GC Introduction of Other Therapeutic Substance into Peripheral Vein, Percutaneous Approach (ICD-10-PCS; 2023-04-16)
PROC: 3E033GC Introduction of Other Therapeutic Substance into Peripheral Vein, Percutaneous Approach (ICD-10-PCS; 2023-04-16)
PROC: 3E0337Z Introduction of Electrolytic and Water Balance Substance into Peripheral Vein, Percutaneous Approach (ICD-10-PCS; 2023-04-16)
DX: R11.2 Nausea with vomiting, unspecified (principal); I10 Essential (primary) hypertension; R10.13 Epigastric pain
CPT/HCPCS: 36415; 71045-TC-FY; 76705-TC; 80048; 80053; 82962; 83690; 83735; 84703; 85025; 85610; 85730; 93005; 93010; 99285-25

== ENCOUNTER 2023-05-27 13:35 | Emergency (ER) | payer OTHER ==
[2023-05-27 13:52] VITALS: BP 135/78; PULSE 95; RESP 18; TEMP 98.2; BMI 29.8
[2023-05-27] MEDS ORDERED: ACETAMINOPHEN 1000 MG/100 ML BAG IVPB ONE (14:36)
[2023-05-27] MEDS ORDERED: ACETAMINOPHEN INJECTION 100 ML IVPB ONE (14:54)
[2023-05-27 15:02] LABS: BASO % 0.8 % (0-2.0); HEMATOCRIT 38.5 % (32.4-45.2); HEMOGLOBIN 12.9 GM/dL (10.7-15.3); LYMPH % 30.8 % (8-40); MCH 32.8 pg (25.7-33.7); MCHC 33.6 g/dl (32.0-36.0); MEAN CELL VOLUME 97.6 fl (80-96); MEAN PLT VOLUME 7.6 fl (7.5-11.1); MONO % 6.5 % (3.8-10.2); NEUT % 60.9 % (42.8-82.8); PLATELET COUNT 258 10^3/uL (134-434); RBC 3.94 M/mm3 (3.60-5.2); RDW 14.2 % (11.6-15.6); WHITE BLOOD COUNT 6.1 K/mm3 (4.0-10.0)
[2023-05-27] MEDS ORDERED: SODIUM CHLORIDE 0.9% 500 ML INFUS.BAG IV ONE (15:10)
[2023-05-27] MEDS ORDERED: METOCLOPRAMIDE HCL INJECTION 10 MG/2 ML VIAL IVPUSH ONE (15:10)
[2023-05-27 15:33] LABS: POTASSIUM 4.5 mmol/L (3.5-5.1)
[2023-05-27 15:35] LABS: ALBUMIN 3.5 g/dl (3.4-5.0); BLOOD UREA NITROGEN 9.3 mg/dL (7-18); CALCIUM 9.8 mg/dL (8.5-10.1)
[2023-05-27] MEDS ORDERED: METOCLOPRAMIDE HCL INJECTION 10 MG/2 ML VIAL ONE (15:35)
[2023-05-27 15:38] LABS: CREATININE 1.3 mg/dL (0.55-1.3)
[2023-05-27 15:40] LABS: BILIRUBIN,TOTAL 0.4 mg/dL (0.2-1); TOT PROT 7.9 g/dl (6.4-8.2)
[2023-05-27] MEDS ORDERED: MAG HYDROX/AL HYDROX/SIMETH 30 ML UNIT-DOSE CUP PO ONE (15:43)
[2023-05-27] MEDS ORDERED: MAG HYDROX/AL HYDROX/SIMETH 30 ML UNIT-DOSE CUP ONE (15:48)
[2023-05-27] MEDS ORDERED: POLYETHYLENE GLYCOL (HEALTHYLAX) 3350 17 GM PACKET PO SCH (16:15)
== END 2023-05-27 16:29 | disposition home or self-care (01) ==
LOC: JER 13:35
PROC: 3E033NZ Introduction of Analgesics, Hypnotics, Sedatives into Peripheral Vein, Percutaneous Approach (ICD-10-PCS; principal; 2023-05-27)
PROC: 3E033GC Introduction of Other Therapeutic Substance into Peripheral Vein, Percutaneous Approach (ICD-10-PCS; 2023-05-27)
DX: R10.12 Left upper quadrant pain (principal); K59.02 Outlet dysfunction constipation
CPT/HCPCS: 36415; 74018-TC-FY; 80053; 83690; 84703; 85025; 96374; 96375; 99284-25

== ENCOUNTER 2023-12-04 17:00 | Inpatient (IN) | payer OTHER ==
[2023-12-04 17:20] VITALS: TEMP 98.5; BMI 33.7
[2023-12-04 18:40] LABS: BASO % 0.7 % (0-2.0); EOS % 0.4 % (0-4.5); HEMATOCRIT 38.3 % (32.4-45.2); HEMOGLOBIN 13.2 GM/dL (10.7-15.3); LYMPH % 22.3 % (8-40); MCH 32.9 pg (25.7-33.7); MCHC 34.6 g/dl (32.0-36.0); MEAN PLT VOLUME 7.9 fl (7.5-11.1); MONO % 4.3 % (3.8-10.2); NEUT % 72.3 % (42.8-82.8); PLATELET COUNT 341 10^3/uL (134-434); RBC 4.03 M/mm3 (3.60-5.2); RDW 13.9 % (11.6-15.6); WHITE BLOOD COUNT 12.8 K/mm3 (4.0-10.0)
[2023-12-04 18:42] LABS: VENOUS BASE EXCESS 0.1 mmol/L (-2-2); VENOUS O2 SATURATION 90.8 % (70-80); VENOUS PCO2 35.5 mmHg (38-52); VENOUS PH 7.442 (7.310-7.410)
[2023-12-04] MEDS ORDERED: METOCLOPRAMIDE HCL INJECTION 10 MG/2 ML VIAL ONE (18:44)
[2023-12-04] MEDS ORDERED: morphine SULFATE 4 MG/ML VIAL ONE (18:44)
[2023-12-04] MEDS ORDERED: FAMOTIDINE 20 MG/50 ML IVPB 20 MG/50 ML MG IVPB ONE (18:45)
[2023-12-04] MEDS: morphine CARPU-JECT 4 MG/1 ML DISP.SYRIN IVPUSH ONE (18:55)
[2023-12-04] MEDS: SODIUM CHLORIDE 0.9% 500 ML INFUS.BAG IV ONE (18:56)
[2023-12-04] MEDS: FAMOTIDINE 20 MG/50 ML IVPB 20 MG/50 ML MG IVPB ONE (18:56)
[2023-12-04 19:01] LABS: CHLORIDE 97 mmol/L (98-107); POTASSIUM 3.6 mmol/L (3.5-5.1); SODIUM 133 mmol/L (136-145)
[2023-12-04] MEDS: METOCLOPRAMIDE HCL INJECTION 10 MG/2 ML VIAL IVPUSH ONE (19:01)
[2023-12-04 19:05] LABS: ALBUMIN 3.9 g/dl (3.4-5.0); CALCIUM 9.8 mg/dL (8.5-10.1)
[2023-12-04 19:06] LABS: ANION GAP 11 mmol/L (4-13); BLOOD UREA NITROGEN 20.5 mg/dL (7-18); CO2 25 mmol/L (21-32); MAGNESIUM 1.8 mg/dL (1.8-2.4)
[2023-12-04] MEDS: ONDANSETRON 4 MG/2 ML VIAL IVPUSH ONE (19:07)
[2023-12-04 19:08] LABS: CREATININE 1.8 mg/dL (0.55-1.3); SGOT/AST 19 U/L (15-37); SGPT/ALT 23 U/L (13-61)
[2023-12-04 19:09] LABS: BILIRUBIN,TOTAL 0.4 mg/dL (0.2-1)
[2023-12-04 19:10] LABS: ALK PHOS 134 U/L (45-117); GLUCOSE,RANDOM 426 mg/dL (74-106)
[2023-12-04] MEDS ORDERED: HALOPERIDOL LACTATE 5 MG/ML ONE (20:02)
[2023-12-04] MEDS: HALOPERIDOL LACTATE 5 MG/ML IM ONE (20:14)
[2023-12-04] MEDS: HALOPERIDOL LACTATE 5 MG/ML IVPUSH ONE (20:15)
[2023-12-04] MEDS ORDERED: ACETAMINOPHEN 1000 MG/100 ML BAG IVPB PRN (20:33)
[2023-12-04] MEDS ORDERED: LACTATED RINGERS SOLUTION 1,000 ML/1,000 ML INFUS.BAG IV SCH (20:45)
[2023-12-04] MEDS ORDERED: MORPHINE SULFATE 2 MG/ML SYRINGE IVPUSH PRN (20:56)
[2023-12-04] MEDS ORDERED: HEPARIN NA (PORCINE) 5,000 UNITS/ML 1ML VIAL ONE (21:07)
[2023-12-04] MEDS: INSULIN ASPART SLIDING SCALE (NOVOLOG) 1 VIAL SQ SCH (21:15)
[2023-12-04 21:23] VITALS: BP 184/110; PULSE 99; RESP 18
[2023-12-04] MEDS ORDERED: HEPARIN NA (PORCINE) 5,000 UNITS/ML 1ML VIAL SQ SCH (22:00)
== END 2023-12-04 21:20 | disposition left against medical advice (07) | DRG 282 ==
LOC: JER 17:00 → JERBED 19:39
PROVIDERS: ADMIT Internal Medicine; ATTEND Internal Medicine
DX: K85.90 Acute pancreatitis without necrosis or infection, unspecified (principal); I10 Essential (primary) hypertension; E86.0 Dehydration; E10.65 Type 1 diabetes mellitus with hyperglycemia; D72.829 Elevated white blood cell count, unspecified; R11.2 Nausea with vomiting, unspecified; Z88.0 Allergy status to penicillin; Z91.148 Patient's other noncompliance with medication regimen for other reason
CPT/HCPCS: 36415; 80053; 82010; 82803; 82962; 83690; 83735; 84703; 85025; 99285-25

== ENCOUNTER 2024-04-28 07:50 | Emergency (ER) | payer OTHER ==
[2024-04-28 08:07] VITALS: BP 168/109; PULSE 93; RESP 18; TEMP 98.6; BMI 31.9
[2024-04-28] MEDS ORDERED: ACETAMINOPHEN INJECTION 100 ML ONE (09:31)
[2024-04-28] MEDS ORDERED: ONDANSETRON 4 MG/2 ML VIAL ONE (09:31)
[2024-04-28] MEDS ORDERED: FAMOTIDINE 20 MG/50 ML IVPB 20 MG/50 ML MG IVPB ONE (09:31)
[2024-04-28] MEDS: SODIUM CHLORIDE 0.9% 500 ML INFUS.BAG IV ONE (10:07)
[2024-04-28] MEDS: ACETAMINOPHEN 1000 MG/100 ML BAG IVPB ONE (10:08)
[2024-04-28] MEDS: FAMOTIDINE 20 MG/50 ML IVPB 20 MG/50 ML MG IVPB ONE (10:08)
[2024-04-28] MEDS: ONDANSETRON 4 MG/2 ML VIAL IVPUSH ONE (10:08)
[2024-04-28 10:53] LABS: BASO % 0.8 % (0-2.0); EOS % 1.1 % (0-4.5); HEMATOCRIT 38.6 % (32.4-45.2); HEMOGLOBIN 12.8 GM/dL (10.7-15.3); LYMPH % 25.7 % (8-40); MCH 33.1 pg (25.7-33.7); MCHC 33.1 g/dl (32.0-36.0); MEAN CELL VOLUME 99.8 fl (80-96); MEAN PLT VOLUME 9.4 fl (7.5-11.1); MONO % 4.5 % (3.8-10.2); NEUT % 67.9 % (42.8-82.8); PLATELET COUNT 338 10^3/uL (134-434); RBC 3.86 M/mm3 (3.60-5.2); RDW 14.7 % (11.6-15.6); WHITE BLOOD COUNT 7.9 K/mm3 (4.0-10.0)
[2024-04-28 11:27] LABS: POTASSIUM 5.9 mmol/L (3.5-5.1)
[2024-04-28 11:30] LABS: ALBUMIN 3.6 g/dl (3.4-5.0); CALCIUM 9.8 mg/dL (8.5-10.1)
[2024-04-28 11:33] LABS: CREATININE 1.5 mg/dL (0.55-1.3)
[2024-04-28 11:35] LABS: BILIRUBIN,TOTAL 0.8 mg/dL (0.2-1); TOT PROT 8.4 g/dl (6.4-8.2)
[2024-04-28] MEDS ORDERED: HALOPERIDOL LACTATE 5 MG/ML ONE (11:53)
[2024-04-28 12:18] LABS: HIV INTERPRETATION NEGATIVE (NEGATIVE)
[2024-04-28] MEDS: HALOPERIDOL LACTATE 5 MG/ML IM ONE (13:27)
[2024-04-28] MEDS: METOCLOPRAMIDE HCL INJECTION 10 MG/2 ML VIAL IVPB ONE (14:40)
== END 2024-04-28 14:40 | disposition left against medical advice (07) ==
LOC: JER 07:50
PROC: 3E033GC Introduction of Other Therapeutic Substance into Peripheral Vein, Percutaneous Approach (ICD-10-PCS; principal; 2024-04-28)
PROC: 3E033NZ Introduction of Analgesics, Hypnotics, Sedatives into Peripheral Vein, Percutaneous Approach (ICD-10-PCS; 2024-04-28)
PROC: 3E023GC Introduction of Other Therapeutic Substance into Muscle, Percutaneous Approach (ICD-10-PCS; 2024-04-28)
PROC: 3E033GC Introduction of Other Therapeutic Substance into Peripheral Vein, Percutaneous Approach (ICD-10-PCS; 2024-04-28)
DX: R11.2 Nausea with vomiting, unspecified (principal)
CPT/HCPCS: 36415; 74177-TC; 80053; 83605; 83690; 83735; 84703; 85025; 86803; 87389; 93005; 93010; 99285-25; J0131; Q9967